=== PATIENT | male | born 1935 | race Caucasian/White ===

== ENCOUNTER → 2024-03-04 | Outpatient (CLI) | payer MEDICARE, OTHER, SELFPAY ==
[2024-03-05 08:56] LABS: Clostridium Difficile PCR Negative (Negative)
== END | disposition home or self-care (01) ==
PROVIDERS: PCP Internal Medicine; Referring Provider Internal Medicine; Visit Provider Internal Medicine
DX: Z01.89 Encounter for other specified special examinations (principal)
CPT/HCPCS: 87493

== ENCOUNTER → 2024-03-14 | Outpatient (CLI) | payer MEDICARE, BC, SELFPAY ==
[2024-03-15 08:41] LABS: Clostridium Difficile PCR Negative (Negative)
== END | disposition home or self-care (01) ==
PROVIDERS: PCP Internal Medicine; Referring Provider Hospitalist; Visit Provider Hospitalist
DX: K59.1 Functional diarrhea (principal)
CPT/HCPCS: 87015; 87045; 87046; 87177; 87209; 87493; 87899

== ENCOUNTER 2024-05-09 17:42 | Inpatient (IN) | payer MEDICARE, BC, SELFPAY ==
[2024-05-09] VITALS (7 sets, daily range): BP systolic 100–128; BP diastolic 52–71; PULSE 93–122; RESP 14–98; TEMP 36.4–39.2; O2SAT 97–100; BMI 23.3
--- NOTE | 2024-05-09 17:53 | EKG_ITS ---
[facility] Test Date: 2024-05-09 Pat Name: CHAITANYA HERNANDEZ Department: Room: - Gender: Male Contract Agent: : [id number] Requested By: Felipe Clemens Order Number: [id number] Reading MD: Felipe Clemens Measurements Intervals [place] Rate: 121 P: 46 PA: 233 QRS: 270 QRSD: 157 T: 51 QT: 360 QTc: 513 Interpretive Statements SINUS TACHYCARDIA WITH FIRST DEGREE AV BLOCK RIGHT AXIS DEVIATION [QRS AXIS > 100] RIGHT BUNDLE BRANCH BLOCK [120+ ms QRS DURATION, UPRIGHT V1, 40+ ms S IN I/aVL/V4/V5/V6] Compared to ECG 01/05/2024 07:41:49 First degree AV block now present Right-axis deviation now present Atrial fibrillation no longer present Ventricular premature complex(es) no longer present Aberrant conduction of supraventricular beat(s) no longer present Left-axis deviation no longer present /store/S0/[id number]/ecg/[id number].pdf
--- NOTE | 2024-05-09 17:54 | XR_ITS ---
Examination: AP chest single view Technique: AP portable upright chest single view Exam date and time: May 09, 2024 1820 hrs. Comparison January 04, 2024 Indications: Coughing today shortness of breath Findings: Normal heart size Mild to moderate vascular congestion. No lobar pneumonia Moderate osteopenia Impression: Mild to moderate vascular congestion
[2024-05-09] MEDS: IBUPROFEN TAB 400 MG TABLET PO (18:24)
[2024-05-09] MEDS: SODIUM CHLORIDE 0.9% 1000 ML 1,000 ML 999 ML IV (18:26)
[2024-05-09 18:28] LABS: Lactate (Lactic Acid) 5.5 mMol/L (0.4-2.0)
[2024-05-09] MEDS: ACETAMINOPHEN IVPB 1,000 MG/100 ML VIAL 250 MG IV (18:30)
[2024-05-09] MEDS: cefTRIAXone 2 GM in SODIUM CHLORIDE 0.9% (Popper) 50 ML IV (18:32)
--- NOTE | 2024-05-09 18:48 | PD.EDADULT ---
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 He reports symptoms started acutely today morning. He was feeling chills and feverish but did not check his temperature. He denies any chest pain, shortness of breath, abdominal or back pain. Related Data Home Medications ?Medication ?Instructions ?Recorded ?Confirmed Docosahexanoic Acid/Epa (Fish Oil 1,400 mg PO DAILY ##0 05/14/13 01/04/24 1,000 Mg Softgel) flaxseed oil 1,030 mg capsule 1,400 mg PO BID #0 caps 05/14/13 01/04/24 levothyroxine 175 mcg tablet 225 mcg PO QDAY #0 tabs 05/14/13 01/08/24 (Synthroid) omeprazole 20 mg capsule,delayed 20 mg PO QDAY ##0 05/14/13 01/04/24 release (Prilosec) Glucosamine/MSM/Chondroitin A * 1 tab PO QDAY #0 tabs 11/13/13 01/04/24 (TRIPLEFLEX *) celecoxib 200 mg capsule 200 mg PO QDAY 01/04/24 01/04/24 Held on 01/09/24. Instructions: Resume on 01/16/24. Please see your PCP within 1 week, after repeating your CMP labs. fluticasone furoate 50 mcg inhalation 01/04/24 mcg/actuation blister powder for inhalation metformin 1,000 mg tablet 1,500 mg PO QDAY 01/04/24 01/08/24 tamsulosin 0.4 mg capsule mg PO BID 01/04/24 acetaminophen 325 mg tablet 650 mg PO Q4H PRN Pain 01/08/24 01/08/24 (Tylenol) Previous Rx's ?Medication ?Instructions ?Recorded albuterol 90 mcg-budesonide 80 2 inh inhalation BID PRN shortness 01/09/24 mcg/actuation HFA aerosol inhaler of breath #10.7 grams amoxicillin 875 mg-potassium 1 tab PO BID #4 tabs 01/09/24 clavulanate 125 mg tablet Allergies Allergy/AdvReac Type Severity Reaction Status Date / Time bacitracin (From Neosporin Allergy Mild Redness of Verified 05/09/24 18:33 ([id number])) Skin neomycin (From Neosporin Allergy Mild Redness of Verified 05/09/24 18:33 ([id number])) Skin polymyxin B (From Neosporin Allergy Mild Redness of Verified 05/09/24 18:33 ([id number])) Skin Review of Systems Review of Systems Systems Reviewed: All systems reviewed, normal except as documented ED Exam Narrative Physical exam: Gen: Well-developed and well-nourished elderly male. HEENT: NCAT, PERRLA, EOMI, MMM, anicteric conjunctivae. CVS: normal S1 and S2. RRR. No M/R/G. Resp: CTA B/L. No rhonchi, rales, crackles or wheezing. Abd: soft, non-tender, non-distended. BS+ in all 4 quadrants. MSK: Good ROM in BUE & BLE. No edema or rash. : No CVA tenderness. Neuro: CN II-XII grossly intact. Strength 5/5 in BUE & BLE. Alert and oriented x3. Psych: appropriate mood and affect. Course Course Course Narrative: 1740 SEPSIS alert called on arrival. 1800 Given 1L of NS and 2g of ceftriaxone. Given tylenol 1g IV for fever. 1930 decision to admit. Quality Measures none Orders Category Date Time Status Bedside COVID-19 Antigen Test NOW Care 05/09/24 18:14 Active Bedside COVID-19 Antigen Test NOW Care 05/09/24 19:43 Active Bedside Influenza A&B Antigen Test NOW Care 05/09/24 18:15 Active COVID-19 Screening Questionnaire NOW Care 05/09/24 19:20 Active Decision to Admit X1 Care 05/09/24 19:20 Completed EKG (ED ONLY) *Do not use* NOW Care 05/09/24 17:53 Completed In and Out Catheter X1 Care 05/09/24 17:57 Completed Insert IV NOW Care 05/09/24 17:52 Active EKG (ED Only) Stat Exams 05/09/24 17:53 Ordered XR chest 1V portable Stat Exams 05/09/24 17:54 Completed Blood Culture (Lab) Stat Lab 05/09/24 17:55 Received CBC Stat Lab 05/09/24 18:00 Completed CMP [Comprehensive Metabolic Panel] Stat Lab 05/09/24 18:00 Completed Lactate (Lactic Acid) Stat Lab 05/09/24 18:00 Results Magnesium Stat Lab 05/09/24 18:00 Completed Procalcitonin Stat Lab 05/09/24 18:00 Completed Troponin I Stat Lab 05/09/24 18:00 Completed Urinalysis Stat Lab 05/09/24 17:55 Completed Urine Culture Stat Lab 05/09/24 17:55 Received Acetaminophen Ivpb [Ofirmev Inj] Med 05/09/24 18:13 Active 1,000 mg in 100 ml IV Q6HR Acetaminophen Tab [Tylenol ES Tab] Med 05/09/24 18:07 Discontinued 500 mg PO X1 ONE Ibuprofen Tab [Motrin Tab] Med 05/09/24 18:13 Discontinued 400 mg PO X1 ONE Sodium Chloride 0.9% 1000 ml [Ns] 1,000 ml Med 05/09/24 18:07 Discontinued IV 999 mls/hr cefTRIAXone [Rocephin] 2 gm Med 05/09/24 18:06 Discontinued SODIUM CHLORIDE 0.9% (Popper) [Ns 0.9% (P)] 50 ml IV X1 Vital Signs Vital signs: Vital Signs Temperature 102.5 F H 05/09/24 18:04 Pulse Rate 122 H 05/09/24 18:04 Respiratory Rate 26 H 05/09/24 18:04 Blood Pressure 128/71 05/09/24 18:04 Pulse Oximetry (%) 97 05/09/24 18:04 Oxygen Delivery Method Room Air 05/09/24 18:04 Procedures -ED EKG Interpretation Sinus tachycardia with 1 degree AVB: Date of EK05/09/24 Time of EK:54 Rate: 121 Interpretation: Reviewed by me EKG Impression: Bundle branch block, No ischemic changes and Sinus tachycardia MDM Patient data External records reviewed:: [facility] previous records and EMS form Clinical information provided by:: patient Social determinants that could affect healthcare access:: none Patient has the following chronic illnesses:: 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 How is presenting disease/condition affected by chronic disease/condition?: uneffected by Evaluation data The following diagnostics were reviewed and interpreted by me:: lab results, radiology exam(s) and EKG tracing(s) Lab and/or radiology exams considered but not ordered:: CTAP Interpretation Summary: Consistent with sepsis 2/2 UTI Medications Medications considered but not ordered:: none Medication administrations:: Medication Administration History Acetaminophen (Ofirmev Inj) 1,000 mg in 100 mls @ 250 mls/hr IV Q6HR TANGELA Stop: 05/10/24 12:23 Last Infusion: 05/09/24 18:58 Dose: Infused Documented By: Admin: 05/09/24 18:30 Dose: 250 mls/hr Documented By: BEV Discontinued Medications Acetaminophen (Acetaminophen 500 Mg Tablet) 500 mg PO X1 ONE Stop: 05/09/24 18:08 Last Admin: 05/09/24 18:33 Dose: Not Given Documented By: BEV Non-Admin Reason: Cancelled by Provider Ceftriaxone Sodium 2 gm/ (Sodium Chloride) 50 mls @ 100 mls/hr IV X1 ONE Stop: 05/09/24 18:35 Last Admin: 05/09/24 18:32 Dose: 100 mls/hr Documented By: BEV Sodium Chloride (Ns) 1,000 mls @ 999 mls/hr IV .Q1H1M ONE Stop: 05/09/24 19:07 Last Admin: 05/09/24 18:26 Dose: 999 mls/hr Documented By: BEV Ibuprofen (Ibuprofen Tab 400 Mg Tablet) 400 mg PO X1 ONE Stop: 05/09/24 18:14 Last Admin: 05/09/24 18:24 Dose: 400 mg Documented By: BEV Given NS 1L, ceftriaxone 2g, Tylenol 1g IV. Consultations Consultation(s) initiated? (list below): No Diagnosis Differential Diagnosis ED Complaint MDM: acute urinary retention, UTI, pyelonephritis Most likely diagnosis given after review of the tests above:: Sepsis 2/2 UTI. Admission Indicated Admission indicated?: indicated Explain why admission is indicated or not indicated:: Patient is septic on admission and requires to be on IVF and IV antibiotics. Admission Request Was there a request for admission?: Yes Admission Attestation Admission request attestation: Discussed case with Dr. Ndiaye from Hospitalist service regarding admission. Discussed patients ED course, exam findings, labs, and radiology results. The Hospitalist agrees to accept the patient for admission. Disposition Plan Disposition Plan: Admit Medical Decision Making MDM Narrative MDM Narrative: Patient presented with signs of sepsis: Tachycardia, tachypnea, fever, leukocytosis. Blood pressure on admission 128/71. Chest x-ray was negative for findings. Patient was complaining of dysuria symptoms and his urinalysis was positive for UTI. Patient will need to be admitted to the hospital for IV antibiotics and IV fluid resuscitation. Cultures were taken in the ED. Differential Diagnosis Differential Diagnosis: acute urinary retention, UTI, pyelonephritis Lab Data 05/09/24 18:00 05/09/24 18:00 Labs: Lab Results 05/09/24 05/09/24 Range/Units 17:55 18:00 WBC 22.5 H (3.8-10.6) Thou/mm3 RBC 2.94 L (4.50-5.90) Miln/mm3 Hgb 8.7 L (13.5-16.0) g/dL Hct 25.6 L (41.0-53.0) % MCV 87 (80-100) fL MCH 29.6 (25.0-35.0) pg MCHC 34.0 (31.0-37.0) g/dl RDW Std Deviation 50.0 H (35.1-43.9) fL Plt Count 272 (140-440) Thou/mm3 Neut % (Auto) 89 H (37-80) % Lymph % (Auto) 5 L (10-50) % Riley % (Auto) 5 (0-12) % Eos % (Auto) 0 (0-10) % Baso % (Auto) 0 (0-2.5) % Neut # (Auto) 20.1 H (1.8-7.7) Thou/mm3 Lymph # (Auto) 1.1 (1.0-4.8) Thou/mm3 Riley # (Auto) 1.1 H (0.0-0.8) Thou/mm3 Eos # (Auto) 0.0 (0.0-0.5) Thou/mm3 Baso # (Auto) 0.0 (0.0-0.2) Thou/mm3 Immature Gran # (Auto) 0.21 H (0.00-0.00) Thou/mm3 Absolute Nucleated RBC 0.00 (0.00-0.00) Thou/mm3 Immature Gran % 1 H (0-0) % Nucleated RBC % 0 (0) /100 WBC Sodium 131 L (136-145) mMol/L Potassium 6.0 H (3.4-5.1) mMol/L Chloride 99 (98-107) mMol/L Carbon Dioxide 17.1 L (20.0-31.0) mMol/L Anion Gap 15 (7-16) BUN 69 H (9-23) mg/dL Creatinine 2.6 H (0.6-1.3) mg/dL Estim Creat Clear Calc 22.0 L (>60) mL/min eGFR 23 L (60 - ) See Note BUN/Creatinine Ratio 27 H (12-20) Ratio Glucose 248 H (74-106) mg/dL Calculated Osmolality 290 (275-295) Lactic Acid 5.5 H* (0.4-2.0) mMol/L Calcium 8.5 (8.3-10.6) mg/dL Corrected Calcium 9.0 (8.5-10.1) mg/dL Magnesium 1.7 (1.6-2.6) mg/dL Total Bilirubin 0.7 (0.3-1.2) mg/dL AST < 10 (0-34) U/L ALT 20 (10-49) U/L Alkaline Phosphatase 132 H (46-116) U/L Troponin I 0.088 H* (0.0-0.045) ng/mL Total Protein 6.1 (5.7-8.2) gm/dL Albumin 3.4 (3.4-4.8) gm/dL Globulin 2.7 (2.3-3.5) gm/dL Albumin/Globulin Ratio 1.3 (1.2-2.2) Procalcitonin 34.55 H (0.0-0.49) ng/ml Ur Collection Type Clean Catch Urine Color Lt-Yellow (Lt Yel-Yel) Urine Clarity Clear (Clear/Hazy) Urine pH 5.5 (5.0-7.0) Ur Specific [place] 1.008 (1.001-1.035) Urine Protein Trace (Neg - Trace) Urine Glucose (UA) Negative (Negative) Urine Ketones Negative (Negative) Urine Blood 1+ A (Negative) Urine Nitrite Positive (Negative) Urine Bilirubin Negative (Negative) Urine Urobilinogen (Auto) Negative (0.0-1.0) mg/dL Ur Leukocyte Esterase Positive (Negative) Urine RBC 2 (0-3) /hpf Urine WBC 45 H (0-5) /hpf Ur Squamous Epith Cells 1 (0-5) /hpf Urine Bacteria 3+ A (None) Hyaline Casts < 1 (0-1) /hpf Discharge Plan Plan Patient Disposition: Admit Acute Care w/in Hospital Prescriptions/Referrals Prescriptions/Med Rec: No Action levothyroxine [Synthroid] 175 MCG tablet 225 mcg PO QDAY Qty: 0 omeprazole [Prilosec] 20 MG capsule,delayed release(DR/EC) 20 mg PO QDAY Qty: 0 Patient Comments: TO SUPPRESS GASTRIC ACID SECRETIONS flaxseed oil 1,030 MG capsule 1,400 mg PO BID Qty: 0 Docosahexanoic Acid/Epa (Fish Oil 1,000 Mg Softgel) 1 CAP capsule 1,400 mg PO DAILY Qty: 0 Glucosamine/MSM/Chondroitin A * (TRIPLEFLEX *) 1 EACH tablet 1 tab PO QDAY Qty: 0 celecoxib 200 mg Capsule 200 mg PO QDAY tamsulosin 0.4 mg Capsule PO BID metformin 1,000 mg Tablet 1,500 mg PO QDAY fluticasone furoate 50 mcg/actuation Blister With Device INHALATION acetaminophen [Tylenol] 325 mg Tablet 650 mg PO Q4H PRN (Reason: Pain) amoxicillin-pot clavulanate 875-125 mg tablet 1 tab PO BID Qty: 4 0RF albuterol-budesonide 90-80 mcg/actuation HFA aerosol inhaler 2 inh inhalation BID PRN (Reason: shortness of breath) Qty: 10.7 0RF Referrals: No Primary/Family,Physician [Primary Care Provider] - In 1 week Problem List Clinical Impression: Sepsis, Acute UTI Patient/Caregiver Discharge Instructions Print Language: Kyrgyz Stand Alone Forms: [facility] Award Info., Patient Portal Info Letter
[2024-05-09 18:57] LABS: Bacteria,Urine 3+; Bilirubin,Urine Negative (Negative); Blood,Urine 1+ (Negative); Clarity,Urine Clear (Clear/Hazy); Collection Type, Urine Clean Catch; Color,Urine Lt-Yellow (Lt Yel-Yel); Glucose, Urine Negative (Negative); Hyaline Casts,Urine < 1 /hpf (0-1); Ketones,Urine Negative (Negative); Leukocyte Esterase,Urine Positive (Negative); Nitrite,Urine Positive (Negative); PH,Urine 5.5 (5.0-7.0); Protein,Urine Trace (Neg - Trace); RBC,Urine 2 /hpf (0-3); Specific Gravity,Urine 1.008 (1.001-1.035); Squamous Epithelial Cell,Urine 1 /hpf (0-5); Urobilinogen,Urine Negative mg/dL (0.0-1.0); WBC,Urine 45 /hpf (0-5)
[2024-05-09 19:03] LABS: Alanine Aminotransferase 20 U/L (10-49); Albumin, Serum 3.4 gm/dL (3.4-4.8); Albumin/Globulin Ratio 1.3 (1.2-2.2); Alkaline Phosphatase 132 U/L (46-116); Anion Gap 15 (7-16); Aspartate Amino Transferase < 10 U/L (0-34); BUN/Creatinine Ratio 27 Ratio (12-20); Bilirubin,Total 0.7 mg/dL (0.3-1.2); Blood Urea Nitrogen 69 mg/dL (9-23); Calcium 8.5 mg/dL (8.3-10.6); Carbon Dioxide 17.1 mMol/L (20.0-31.0); Chloride 99 mMol/L (98-107); Creatinine (Component) 2.6 mg/dL (0.6-1.3); Globulin 2.7 gm/dL (2.3-3.5); Glucose 248 mg/dL (74-106); Magnesium 1.7 mg/dL (1.6-2.6); Osmolality,Calculated 290 (275-295); Procalcitonin 34.55 ng/ml (0.0-0.49); Sodium 131 mMol/L (136-145); Total Protein 6.1 gm/dL (5.7-8.2); eGFR 23 See Note
[2024-05-09 19:09] LABS: Troponin I 0.088 ng/mL (0.0-0.045)
[2024-05-09 19:10] LABS: Basophils % (Auto) 0 % (0-2.5); Eosinophils % (Auto) 0 % (0-10); Hematocrit 25.6 % (41.0-53.0); Immature Granulocytes % (Auto) 1 % (0-0); Immature Granulocytes Auto 0.21 Thou/mm3 (0.00-0.00); Lymphocytes # (Auto) 1.1 Thou/mm3 (1.0-4.8); Lymphocytes % (Auto) 5 % (10-50); Mean Corpuscular Hemoglobin 29.6 pg (25.0-35.0); Mean Corpuscular Volume 87 fL (80-100); Monocytes # (Auto) 1.1 Thou/mm3 (0.0-0.8); Monocytes % (Auto) 5 % (0-12); Neutrophils # (Auto) 20.1 Thou/mm3 (1.8-7.7); Neutrophils % (Auto) 89 % (37-80); Nucleated Red Blood Cell % 0 /100 WBC (0); Platelet Count 272 Thou/mm3 (140-440); Red Blood Count 2.94 Miln/mm3 (4.50-5.90); White Blood Count 22.5 Thou/mm3 (3.8-10.6)
[2024-05-09 19:18] LABS: Hemoglobin 8.7 g/dL (13.5-16.0)
--- NOTE | 2024-05-09 20:26 | XR_ITS ---
Examination: Abdomen sonogram, complete Date and time of exam: May 09, 2024 2113 hrs. Indications: Diagnosis urinary tract infection burning sensation with urination, diagnosis melanoma post chemotherapy, diagnosis sepsis. Technique: Multiple real-time grayscale transabdominal sonographic images of the abdomen have been obtained. Findings: Negative for gallstones Gallbladder wall 0.2 cm Common bile duct 0.3 cm Pancreatic head 2.6 cm Patent distal aorta not enlarged Liver 17.3 cm fatty infiltration Normal hepatopedal portal venous flow Patent IVC Right kidney 13.6 cm renal cortex 2.1 cm Mild hydronephrosis Lower pole 15 mm cyst Left kidney 12.4 cm cortex 1.4 cm Mild hydronephrosis with perinephric stranding Moderate bilateral renal parenchymal scar formation Splenomegaly 13.4 cm Impression: Negative for cholelithiasis, negative for cholecystitis Mild hepatomegaly fatty liver Mild bilateral hydronephrosis Moderate bilateral renal parenchymal scar formation Edema surrounding the left kidney, consider left urinary tract infection Mild splenomegaly
--- NOTE | 2024-05-09 20:48 | PD.RESHP ---
Documentation for date of: 05/09/24 HPI History of Present Illness Chief complaint: Generalized weakness for 2 days before History of present illness: HPI:An 89-year-old male patient with past medical history of hypertension, BPH, HFpEF, melanoma, hypothyroidism, A-fib with RVR, urinary incontinence due to acute illness, diabetes mellitus type 2 was brought to the ED by his daughter after she noticed that the patient was weak and confused. Yesterday the patient felt weak and was not able to get up of the recliner without assistant account manager. Patient lives alone andhe has a caregiver who noticed the patient seems to be confused for that reason she called her that his daughter Tali. When his daughter came to to see him the next day patient was mildly confused and was having excessive chills and sweating however denied any fever. She also noticed that the patient has had some episodes of vomiting which was food content. She contacted his [facility] care provider who prescribed the patient Bactrim as he suspected that the patient might have UTI as the patient has history of urinary incontinence and has been using diapers. However, patient condition continued to worsen for that reason she brought him to the ED. On questioning, patient appears to be mildly confused however he is oriented x 3 with difficulty. On review of other system the daughter reported that she noticed that he has black tarry stool which was soft, however, she mentioned that he has been on iron pills for his anemia. Patient denied any abdominal pain, any yellowish discoloration, and denied any use of excessive ibuprofen. Home medications: Apixaban 2.5, carvedilol 3.125, famotidine, levothyroxine 200, metformin 500, prednisone 10 mg, tamsulosin, valsartan, iron supplements, fish oil, flaxseed oil Advair, albuterol/budesonide, ipratropium/albuterol, Tylenol ED course: At the ED patient was noticed to have body temperature of 102.5, pulse rate of 122, respiratory rate of 26. He is saturating well on room air . CBC showed WBC of 22.5, hemoglobin of 8.7 in January last year his hemoglobin was 10.5, platelets 272, sodium 131, potassium 6.0, CO2 17.1, anion gap of 15, BUN of 69, serum creatinine 2.6 his baseline serum creatinine is 1.6, glucose of 248, lactic acid 5.5, AST and ALT within normal limits, troponin 0.088, procalcitonin 34.55 urinalysis was positive for WBCs 45 on high-power field, positive bacteria 3. Chest x-ray was only significant for mild congestion. Patient was given a liter of fluids in the ED due to the concern of his HFpEF and was given 1 dose of Rocephin in addition to his Tylenol PMH:As above PSX: Total knee replacement surgery Social hx: Alcohol: Drink half a bottle of wine daily Tobacco: Denied Illicit drugs: Denied Allergies: Bacitracin, neomycin, polymyxin B Review of Systems Review of Systems Systems Reviewed: All systems reviewed, normal except as documented Exam Vital Signs Temp Pulse Resp BP Pulse Ox O2 Del Method 97.8 F 93 18 100/52 L 98 Room Air 05/09/24 20:35 05/09/24 20:35 05/09/24 20:35 05/09/24 20:35 05/09/24 20:35 05/09/24 20:35 Narrative Exam GEN: AOx3, able to speak full sentences HEENT: NC/AC, oral mucosa dry, neck supple CVS: RRR, S1-S2 present, no murmurs appreciated RESP: CTAB GI: soft, non distended, mild discomfort on the right loin area, CVA nontender, no rigidity or rebound tenderness, NBS MSK: able to move all 4 limbs, no lower extremity edema SKIN: warm and dry, delayed skin turgor more than 3-second BATCHER OPERATOR: CN II-XII and Sensation grossly intact. Results: Labs 05/10/24 04:35 05/09/24 21:46 Labs: Short CBC 05/09/24 Range/Units 18:00 WBC 22.5 H (3.8-10.6) Thou/mm3 Hgb 8.7 L (13.5-16.0) g/dL Hct 25.6 L (41.0-53.0) % Plt Count 272 (140-440) Thou/mm3 BMP 05/09/24 18:00 Sodium 131 L Potassium 6.0 H Chloride 99 Carbon Dioxide 17.1 L BUN 69 H Creatinine 2.6 H Glucose 248 H Calcium 8.5 Cardiac Enzymes 05/09/24 Range/Units 18:00 Troponin I 0.088 H* (0.0-0.045) ng/mL Liver Function 05/09/24 Range/Units 18:00 Total Bilirubin 0.7 (0.3-1.2) mg/dL AST < 10 (0-34) U/L ALT 20 (10-49) U/L Alkaline Phosphatase 132 H (46-116) U/L Albumin 3.4 (3.4-4.8) gm/dL Urine 05/09/24 Range/Units 17:55 Urine Color Lt-Yellow (Lt Yel-Yel) Urine Clarity Clear (Clear/Hazy) Urine pH 5.5 (5.0-7.0) Ur Specific Proctor 1.008 (1.001-1.035) Urine Protein Trace (Neg - Trace) Urine Glucose (UA) Negative (Negative) Quality Measures Quality Measures none Advance care planning discussed with:: patient and child Medications Home Medications and Allergies Home Medications ?Medication ?Instructions ?Recorded ?Confirmed ?Type Docosahexanoic Acid/Epa (Fish Oil 1,400 mg PO DAILY ##0 05/14/13 01/04/24 History 1,000 Mg Softgel) flaxseed oil 1,030 mg capsule 1,400 mg PO BID #0 caps 05/14/13 01/04/24 History levothyroxine 175 mcg tablet 225 mcg PO QDAY #0 tabs 05/14/13 01/08/24 History (Synthroid) omeprazole 20 mg capsule,delayed 20 mg PO QDAY ##0 05/14/13 01/04/24 History release (Prilosec) Glucosamine/MSM/Chondroitin A * 1 tab PO QDAY #0 tabs 11/13/13 01/04/24 History (TRIPLEFLEX *) celecoxib 200 mg capsule 200 mg PO QDAY 01/04/24 01/04/24 History Held on 01/09/24. Instructions: Resume on 01/16/24. Please see your PCP within 1 week, after repeating your CMP labs. fluticasone furoate 50 mcg inhalation 01/04/24 History mcg/actuation blister powder for inhalation metformin 1,000 mg tablet 1,500 mg PO QDAY 01/04/24 01/08/24 History tamsulosin 0.4 mg capsule mg PO BID 01/04/24 History acetaminophen 325 mg tablet 650 mg PO Q4H PRN Pain 01/08/24 01/08/24 History (Tylenol) Allergies Allergy/AdvReac Type Severity Reaction Status Date / Time bacitracin (From Neosporin Allergy Mild Redness of Verified 05/09/24 18:33 ([id number])) Skin neomycin (From Neosporin Allergy Mild Redness of Verified 05/09/24 18:33 ([id number])) Skin polymyxin B (From Neosporin Allergy Mild Redness of Verified 05/09/24 18:33 ([id number])) Skin Visit Medications Acetaminophen (Acetaminophen 325 Mg Tablet) 650 mg PO Q6H PRN PRN Reason: Fever >101.5 Stop: 06/08/24 20:32 Acetaminophen (Acetaminophen 325 Mg Tablet) 650 mg PO Q6H PRN PRN Reason: PAIN SCALE 1-3 (mild Stop: 06/08/24 20:32 Dextrose (Dextrose 50%-Water Inj 50 Ml Syringe) 25 ml IV Q15MIN PRN PRN Reason: BG 50-70 responsive npo pt Stop: 06/08/24 20:25 Dextrose (Dextrose 50%-Water Inj 50 Ml Syringe) 50 ml IV Q15MIN PRN PRN Reason: BG <50 OR BG <70 & pt unresponsive Stop: 06/08/24 20:25 Glucagon (Glucagon Inj 1 Mg Vial) 1 mg IM Q15MIN PRN PRN Reason: BG <70, and no IV access Acetaminophen (Ofirmev Inj) 1,000 mg in 100 mls @ 250 mls/hr IV Q6HR TANGELA Stop: 05/10/24 12:23 Last Infusion: 05/09/24 18:58 Dose: Infused Ceftriaxone Sodium 1,000 mg/ (Sodium Chloride) 50 mls @ 100 mls/hr IV QDAY TANGELA Stop: 05/17/24 06:59 Calcium Gluconate/Sodium Chloride (Calcium Gluc/Ns 1000mg Ivpb) 1,000 mg in 50 mls @ 50 mls/hr IV X1 ONE Stop: 05/09/24 21:42 Ondansetron HCl (Ondansetron Inj 2 Mg/Ml Inj 2 Ml) 4 mg IV Q6H PRN; Protocol PRN Reason: NAUSEA OR VOMITING Stop: 06/08/24 20:32 Pantoprazole Sodium (Pantoprazole Inj 40 Mg Vial) 40 mg IVP QDAY TANGELA Stop: 06/09/24 08:59 Discontinued Medications Acetaminophen (Acetaminophen 500 Mg Tablet) 500 mg PO X1 ONE Stop: 05/09/24 18:08 Last Admin: 05/09/24 18:33 Dose: Not Given Calcium Chloride (Calcium Chloride 10% Inj 10 Ml Syrg) 10 ml IV X1 ONE Stop: 05/09/24 20:27 Dextrose (Dextrose 50%-Water Inj 50 Ml Syringe) 50 ml IV X1 ONE Stop: 05/09/24 20:27 Ceftriaxone Sodium 2 gm/ (Sodium Chloride) 50 mls @ 100 mls/hr IV X1 ONE Stop: 05/09/24 18:35 Last Infusion: 05/09/24 19:02 Dose: Infused Sodium Chloride (Ns) 1,000 mls @ 999 mls/hr IV .Q1H1M ONE Stop: 05/09/24 19:07 Last Infusion: 05/09/24 19:27 Dose: Infused Dextrose (D10w 1000 Ml) 1,000 mls @ 100 mls/hr IV .Q10H TANGELA Stop: 05/10/24 06:29 Ibuprofen (Ibuprofen Tab 400 Mg Tablet) 400 mg PO X1 ONE Stop: 05/09/24 18:14 Last Admin: 05/09/24 18:24 Dose: 400 mg Insulin Human Regular (Insulin Hum Regular 1 Unit/0.01 Ml (Per Unit)) 10 unit IV X1 ONE Stop: 05/09/24 20:27 Ondansetron HCl (Ondansetron Inj 2 Mg/Ml Inj 2 Ml) 4 mg IV Q1H PRN PRN Reason: PERSISTENT NAUSEA OR VOMITING Assessment & Plan Plan Summary:An 89-year-old male patient with past medical history of hypertension, BPH, HFpEF, melanoma, hypothyroidism, A-fib with RVR, diabetes mellitus type 2 was brought to the ED by his daughter after she noticed that the patient was weak and confused. Patient was admitted for treatment of severe sepsis secondary to UTI. Assessment and plan #Severe sepsis secondary to UTI #UTI #Lactic acidosis secondary to sepsis #History of BPH At the ED patient was noticed to have body temperature of 102.5, pulse rate of 122, respiratory rate of 26. He is saturating well on room air . CBC showed WBC of 22.5, hemoglobin of 8.7, CO2 17.1, anion gap of 15, BUN of 69, serum creatinine 2.6 his baseline serum creatinine is 1.6, lactic acid 5.5, procalcitonin 34.55 urinalysis was positive for WBCs 45 on high-power field, positive bacteria 3. Patient was given a liter of fluids in the ED due to the concern of his HFpEF and was given 1 dose of Rocephin in addition to his Tylenol On review of the patient's chart we noted that the patient is using tamsulosin for his benign prostatic hyperplasia Plan ? Admit patient to med/tele ? Start the patient on Rocephin 1 g daily ? Trend lactic acid ? Follow-up on the blood culture and urine culture ? Give the patient another bolus of Ringer lactate 1 L ? Repeat BMP panel after 2 hours ? Abdominal ultrasound ? Insert Underwood's catheter ?Resume home medication tamsulosin 0.4 mg p.o. daily #Hyperkalemia Presentation patient was noticed to have potassium level of 6.1 review of his medications does not seem to have any medication that can cause hyperkalemia Plan ? Keep the patient calcium gluconate 9% over 10 minutes ? Insulin IV 10 international unit x 1 ? 50 mL of D50 x 1 with the insulin ? Repeat BMP after 2 hours ? Daily BMP monitoring #History of melena The daughter reported that she noticed that her father has some episodes of black tarry stool. Denied any history of cirrhosis however he has history of chronic daily use of alcohol in which she drink 1 to 2 glasses of wine daily Denied any use of ibuprofen, however the patient is on iron supplements His hemoglobin 8.7 Plan ? Fecal occult blood test ? Daily CBC ? Consider consulting GI specialist if hemoglobin continued to drop ? Follow-up on the abdominal ultrasound results to rule out if there is any cirrhosis #History of type 2 diabetes mellitus Plan ? Put patient on insulin sliding scale ? Sent for A1c level ? Hypoglycemia protocol in place #History of hypothyroidism Plan ? Resume home medication levothyroxine ? Repeat TSH level #History of A-fib with RVR Plan ? Hold on carvedilol at this time as his blood pressure in the soft side ? Will hold on the apixaban at this time until we rule out GI bleed as the patient has black tarry stool #History of HFpEF #History of hypertension Plan ? Will hold on the carvedilol and valsartan at this time because of the low blood pressure ?Will resume his atorvastatin #Recent history of pneumonia Patient was recently discharged from the hospital in January 27 because of acute hypoxic respiratory failure secondary to pneumonia. When the patient was discharged he was prescribed inhaler therapy by his PCP for his shortness of breath Plan ? Put the patient on DuoNebs every 8 hours as needed #History of melanoma on steroid As per the daughter the patient has melanoma in which he received some chemotherapy that resulted on has chronic diarrhea for that reason he was prescribed prednisone to decrease his diarrhea side effect Plan ? 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 He has never had withdrawal symptoms, he was recently admitted to the hospital for pneumonia and did not experience any withdrawal symptoms. Patient was discharged to assisted facility and he was off alcohol for more than a month. Plan ? Keep close monitoring, consider putting the patient on CIWA protocol if needed Hospital Maintenance: FEN: Renal diet with carb consistent DVT ppx: SCD until rule out GI bleed GI ppx: Protonix IV lines: PIV Underwood:Yes Code status: DNR Dispo: Med-tele - Patient's plan and care discussed with my attending, Dr. Moses Lancaster MD Internal Medicine PGY-2 Attending Provider Attestation/Addendum 89 year old male with multiple comorbid conditions including hypertension, BPH, HFpEF, melenoma and hypothyroidism who presented with fatigue and weakness. In the ER, patient was noted to be septic with organ failure including LUIS with subsequent high anion gap metabolic acidosis and high anion gap metabolic acidosis. In addition, patient noted to have anemia with melena however patient does take iron supplements. For now, will start IV fluids, rocephin and treat hyperkalemia. I reviewed above note and agree with findings and plans. I have also personally examined the patient with medicine team and went over assessment and plan with medical team including diversity intern and resident physician.
[2024-05-09] MEDS: CALCIUM GLUC/NS 1000MG IVPB 1,000 MG/50 ML BAG 300 MG IV (21:17)
[2024-05-09] MEDS: DEXTROSE 50%-WATER INJ 50 ML SYRINGE IV (21:18)
[2024-05-09] MEDS: INSULIN HUM REGULAR 1 UNIT/0.01 ML (PER UNIT) 10 UNIT IV (21:18)
[2024-05-09 21:23] LABS: Reflex Lactate? Y
[2024-05-09 21:56] LABS: Lactate (Lactic Acid) 3.2 mMol/L (0.4-2.0)
[2024-05-09 22:20] LABS: Anion Gap 12 (7-16); BUN/Creatinine Ratio 26 Ratio (12-20); Blood Urea Nitrogen 65 mg/dL (9-23); Calcium 8.7 mg/dL (8.3-10.6); Carbon Dioxide 17.6 mMol/L (20.0-31.0); Chloride 103 mMol/L (98-107); Creatinine (Component) 2.5 mg/dL (0.6-1.3); Estimated Creatinine Clearance 22.8 mL/min (>60); Glucose 254 mg/dL (74-106); Osmolality,Calculated 294 (275-295); Potassium 4.7 mMol/L (3.4-5.1); Sodium 133 mMol/L (136-145); Troponin I 0.083 ng/mL (0.0-0.045); eGFR 24 See Note
--- NOTE | 2024-05-09 22:25 | PC.NURSE ---
jaylin galaviz [phone]
[2024-05-09 23:07] LABS: Glucose Estimated Average 137 mg/dL (80-131); Hemoglobin A1C 6.4 % Hgb (4.8-6.0)
[2024-05-10] VITALS (12 sets, daily range): BP systolic 104–135; BP diastolic 48–69; PULSE 67–102; RESP 12–97; TEMP 35–37.4; O2SAT 95–100; BMI 13.0
[2024-05-10] MEDS: ACETAMINOPHEN IVPB 1,000 MG/100 ML VIAL 250 MG IV (00:46)
[2024-05-10 00:52] LABS: Reflex Lactate? Y
[2024-05-10] MEDS: SODIUM CHLORIDE 0.9% 500 ML 500 ML 999 ML IV ×2 (04:16→07:59)
[2024-05-10 04:57] LABS: Basophils % (Auto) 0 % (0-2.5); Eosinophils % (Auto) 0 % (0-10); Immature Granulocytes % (Auto) 2 % (0-0); Lymphocytes # (Auto) 0.7 Thou/mm3 (1.0-4.8); Lymphocytes % (Auto) 5 % (10-50); Mean Corpuscular HGB Conc 34.8 g/dl (31.0-37.0); Mean Corpuscular Hemoglobin 29.8 pg (25.0-35.0); Mean Corpuscular Volume 86 fL (80-100); Monocytes # (Auto) 0.7 Thou/mm3 (0.0-0.8); Monocytes % (Auto) 5 % (0-12); Neutrophils # (Auto) 11.5 Thou/mm3 (1.8-7.7); Neutrophils % (Auto) 88 % (37-80); Nucleated Red Blood Cell % 0 /100 WBC (0); Platelet Count 155 Thou/mm3 (140-440); RDW Standard Deviation 49.6 fL (35.1-43.9); Red Blood Count 2.18 Miln/mm3 (4.50-5.90); White Blood Count 13.2 Thou/mm3 (3.8-10.6)
[2024-05-10 05:12] LABS: Hematocrit 18.7 % (41.0-53.0); Hemoglobin 6.5 g/dL (13.5-16.0)
[2024-05-10 05:18] LABS: INR 1.3 (0.9-1.3); Partial Thromboplastin Time 41.7 Seconds (22.0-36.0); Prothrombin Time 13.9 Seconds (9.0-12.2)
[2024-05-10 06:04] LABS: Alanine Aminotransferase 13 U/L (10-49); Albumin, Serum 2.6 gm/dL (3.4-4.8); Albumin/Globulin Ratio 1.1 (1.2-2.2); Alkaline Phosphatase 91 U/L (46-116); Anion Gap 9 (7-16); Aspartate Amino Transferase 10 U/L (0-34); BUN/Creatinine Ratio 26 Ratio (12-20); Bilirubin,Total 0.3 mg/dL (0.3-1.2); Blood Urea Nitrogen 67 mg/dL (9-23); Calcium 7.7 mg/dL (8.3-10.6); Calcium (Corrected) 8.8 mg/dL (8.5-10.1); Carbon Dioxide 19.7 mMol/L (20.0-31.0); Chloride 103 mMol/L (98-107); Creatinine (Component) 2.6 mg/dL (0.6-1.3); Globulin 2.3 gm/dL (2.3-3.5); Glucose 154 mg/dL (74-106); Magnesium 1.7 mg/dL (1.6-2.6); Osmolality,Calculated 286 (275-295); Potassium 4.6 mMol/L (3.4-5.1); Sodium 132 mMol/L (136-145); Thyroid Stimulating Hormone 0.03 uIU/mL (0.55-4.78); Total Protein 4.9 gm/dL (5.7-8.2); eGFR 23 See Note
[2024-05-10 07:24] LABS: Hematocrit 20.7 % (41.0-53.0)
[2024-05-10] MEDS: TAMSULOSIN HCL 0.4 MG CAPSULE PO (09:38)
[2024-05-10] MEDS: PANTOPRAZOLE INJ 40 MG VIAL IVP (09:38)
[2024-05-10] MEDS: cefTRIAXone/D5w 2gm 2 GM/50 ML BAG IV (09:39)
[2024-05-10 09:47] LABS: Free T4 (Free Thyroxine) 1.29 ng/dL (0.89-1.76)
[2024-05-10] MEDS: Magnesium Sulfate 4 GM Ivpb 4 GM/50 ML BAG IV (10:52)
[2024-05-10] MEDS: INSULIN LISPRO (AdmeLOG) 1 UNIT/0.01 ML UNIT SC (12:21)
--- NOTE | 2024-05-10 14:04 | ESPR_ITS ---
Documentation for date of: 05/10/24 Subjective Subjective Interval history: 05/10/2024: Overnight admission for 89-year-old male with sepsis secondary to UTI. Patient seen and assessed in hospital bed, awake and answering questions appropriately. Patient is having ongoing chills; however, denies having any concerning cardiac symptoms such as chest pain, shortness of breath or palpitations. Patient's blood cultures are positive from 2 bottles (aerobic/anaerobic) for gram-negative rods; as a result, increase the patient's IV Rocephin to 2 g daily. Patient also has suspicion for upper GI bleed as he has risk factors (prednisone for diarrhea prescribed a month ago) and melena on exam. Consulted gastroenterology for recommendation and the patient and his family is understanding and agreeable to endoscopic intervention if necessary. Exam Vital Signs Temp Pulse Resp BP Pulse Ox O2 Del Method O2 Flow Rate 99.3 F 98 19 116/61 100 Nasal Cannula 1 05/10/24 12:00 05/10/24 12:05/10/24 12:05/10/24 12:00 05/10/24 12:05/10/24 12:05/10/24 12:00 Narrative Exam GEN: Awake, able to speak full sentences HEENT: NC/AC, oral mucosa dry, neck supple CVS: RRR, S1-S2 present, no murmurs appreciated RESP: Crackles heard bilaterally, no wheeze/rales/rhonci, on 2L satting 98+ GI: soft, non distended,nontender, no rigidity or rebound tenderness, borborygmi apparent. MSK: able to move all 4 limbs, no lower extremity edema MATERIAL REQUIREMENTS PLANNING MANAGER: AOx3, CN II-XII and no focal neurological defitits noted. Objective Labs 05/11/24 05:07 05/11/24 05:07 Labs: Laboratory Results - last 24 hr 05/09/24 05/09/24 05/09/24 17:55 18:00 20:52 WBC 22.5 H RBC 2.94 L Hgb 8.7 L Hct 25.6 L MCV 87 MCH 29.6 MCHC 34.0 RDW Std Deviation 50.0 H Plt Count 272 Neut % (Auto) 89 H Lymph % (Auto) 5 L [place] % (Auto) 5 Eos % (Auto) 0 Baso % (Auto) 0 Neut # (Auto) 20.1 H Lymph # (Auto) 1.1 [place] # (Auto) 1.1 H Eos # (Auto) 0.0 Baso # (Auto) 0.0 Immature Gran # (Auto) 0.21 H Absolute Nucleated RBC 0.00 Immature Gran % 1 H Nucleated RBC % 0 PT INR APTT Sodium 131 L Potassium 6.0 H Chloride 99 Carbon Dioxide 17.1 L Anion Gap 15 BUN 69 H Creatinine 2.6 H Estim Creat Clear Calc 22.0 L eGFR 23 L BUN/Creatinine Ratio 27 H Glucose [address] Glu mg/dL 137 H Hemoglobin A1c 6.4 H Calculated Osmolality 290 Lactic Acid 5.5 H* Calcium 8.5 Corrected Calcium 9.0 Phosphorus Magnesium 1.7 Total Bilirubin 0.7 AST < 10 ALT 20 Alkaline Phosphatase 132 H Troponin I 0.088 H* Total Protein 6.1 Albumin 3.4 Globulin 2.7 Albumin/Globulin Ratio 1.3 Procalcitonin 34.55 H TSH Free T4 Ur Collection Type Clean Catch Urine Color Lt-Yellow Urine Clarity Clear Urine pH 5.5 Ur Specific [place] 1.008 Urine Protein Trace Urine Glucose (UA) Negative Urine Ketones Negative Urine Blood 1+ A Urine Nitrite Positive Urine Bilirubin Negative Urine Urobilinogen (Auto) Negative Ur Leukocyte Esterase Positive Urine RBC 2 Urine WBC 45 H Ur Squamous Epith Cells 1 Urine Bacteria 3+ A Hyaline Casts < 1 Blood Type Antibody Screen Blood Bank Wristband ID 05/09/24 05/10/24 05/10/24 21:46 01:21 04:35 WBC 13.2 H D RBC 2.18 L Hgb 6.5 L* D Hct 18.7 L* MCV 86 MCH 29.8 MCHC 34.8 RDW Std Deviation 49.6 H Plt Count 155 D Neut % (Auto) 88 H Lymph % (Auto) 5 L [place] % (Auto) 5 Eos % (Auto) 0 Baso % (Auto) 0 Neut # (Auto) 11.5 H Lymph # (Auto) 0.7 L [place] # (Auto) 0.7 Eos # (Auto) 0.0 Baso # (Auto) 0.0 Immature Gran # (Auto) 0.20 H Absolute Nucleated RBC 0.00 Immature Gran % 2 H Nucleated RBC % 0 PT 13.9 H INR 1.3 APTT 41.7 H Sodium 133 L 132 L Potassium 4.7 D 4.6 Chloride 103 103 Carbon Dioxide 17.6 L 19.7 L Anion Gap 12 9 BUN 65 H 67 H Creatinine 2.5 H 2.6 H Estim Creat Clear Calc 22.8 L 22.0 L eGFR 24 L 23 L BUN/Creatinine Ratio 26 H 26 H Glucose [address] Glu mg/dL Hemoglobin A1c Calculated Osmolality 294 286 Lactic Acid 3.2 H 2.0 Calcium 8.7 7.7 L Corrected Calcium 8.8 Phosphorus 5.0 Magnesium 1.7 Total Bilirubin 0.3 AST 10 ALT 13 Alkaline Phosphatase 91 D Troponin I 0.083 H* Total Protein 4.9 L Albumin 2.6 L D Globulin 2.3 Albumin/Globulin Ratio 1.1 L Procalcitonin TSH 0.03 L* Free T4 1.29 Ur Collection Type Urine Color Urine Clarity Urine pH Ur Specific [place] Urine Protein Urine Glucose (UA) Urine Ketones Urine Blood Urine Nitrite Urine Bilirubin Urine Urobilinogen (Auto) Ur Leukocyte Esterase Urine RBC Urine WBC Ur Squamous Epith Cells Urine Bacteria Hyaline Casts Blood Type A Positive Antibody Screen NEGATIVE Blood Bank Wristband ID Yes 05/10/24 07:05 WBC RBC Hgb 7.0 L Hct 20.7 L* MCV MCH MCHC RDW Std Deviation Plt Count Neut % (Auto) Lymph % (Auto) [place] % (Auto) Eos % (Auto) Baso % (Auto) Neut # (Auto) Lymph # (Auto) [place] # (Auto) Eos # (Auto) Baso # (Auto) Immature Gran # (Auto) Absolute Nucleated RBC Immature Gran % Nucleated RBC % PT INR APTT Sodium Potassium Chloride Carbon Dioxide Anion Gap BUN Creatinine Estim Creat Clear Calc eGFR BUN/Creatinine Ratio Glucose Estimated Ave Glu mg/dL Hemoglobin A1c Calculated Osmolality Lactic Acid Calcium Corrected Calcium Phosphorus Magnesium Total Bilirubin AST ALT Alkaline Phosphatase Troponin I Total Protein Albumin Globulin Albumin/Globulin Ratio Procalcitonin TSH Free T4 Ur Collection Type Urine Color Urine Clarity Urine pH Ur Specific [place] Urine Protein Urine Glucose (UA) Urine Ketones Urine Blood Urine Nitrite Urine Bilirubin Urine Urobilinogen (Auto) Ur Leukocyte Esterase Urine RBC Urine WBC Ur Squamous Epith Cells Urine Bacteria Hyaline Casts Blood Type Antibody Screen Blood Bank Wristband ID Quality Measures Quality Measures none Advance care planning discussed with:: patient Assessment & Plan Assessment Current Active Medications: Generic Name Dose Route Start Last Admin Trade Name Freq PRN Reason Stop Dose Admin Acetaminophen 650 mg 05/09/24 20:33 Acetaminophen 325 Mg Tablet PO 06/08/24 20:32 Q6H PRN Fever >101.5 Acetaminophen 650 mg 05/09/24 20:33 Acetaminophen 325 Mg Tablet PO 06/08/24 20:32 Q6H PRN PAIN SCALE 1-3 (mild Dextrose 25 ml 05/09/24 20:26 Dextrose 50%-Water Inj 50 Ml Syringe IV 06/08/24 20:25 Q15MIN PRN BG 50-70 responsive npo pt Dextrose 50 ml 05/09/24 20:26 Dextrose 50%-Water Inj 50 Ml Syringe IV 06/08/24 20:25 Q15MIN PRN BG <50 OR BG <70 & pt unresponsive Glucagon 1 mg 05/09/24 20:26 Glucagon Inj 1 Mg Vial IM Q15MIN PRN BG <70, and no IV access Ceftriaxone Sodium/Dextrose 2 gm in 50 mls @ 100 mls/hr 05/10/24 09:00 05/10/24 09:39 Rocephin/D5w 2gm IV 05/17/24 08:59 100 mls/hr QDAY TANGELA Administration Insulin Human Lispro 0 unit 05/10/24 07:30 05/10/24 12:21 Insulin Lispro (Admelog) 1 Unit/0.01 Ml Unit SC 06/09/24 07:29 1 unit AC TANGELA Administration Protocol Levothyroxine Sodium 200 mcg 05/11/24 06:00 Levothyroxine Sodium 100 Mcg Tablet PO 06/10/24 05:59 ACBR TANGELA Ondansetron HCl 4 mg 05/09/24 20:33 Ondansetron Inj 2 Mg/Ml Inj 2 Ml IV 06/08/24 20:32 Q6H PRN NAUSEA OR VOMITING Protocol Pantoprazole Sodium 40 mg 05/10/24 21:00 Pantoprazole Inj 40 Mg Vial IVP 06/09/24 20:59 BID TANGELA Tamsulosin HCl 0.4 mg 05/10/24 09:00 05/10/24 09:38 Tamsulosin Hcl 0.4 Mg Capsule PO 06/09/24 08:59 0.4 mg QDAY TANGELA Administration Plan 89-year-old male patient with past medical history of hypertension, BPH, HFpEF, melanoma, hypothyroidism, A-fib with RVR, diabetes mellitus type 2 was brought to the ED by his daughter after she noticed that the patient was weak and confused. Patient was admitted for treatment of severe sepsis secondary to UTI. #Severe sepsis secondary to UTI #Gram-negative bacteremia #Lactic acidosis secondary to sepsis #History of BPH At the ED patient was noticed to have body temperature of 102.5, pulse rate of 122, respiratory rate of 26. He is saturating well on room air . CBC showed WBC of 22.5, hemoglobin of 8.7, CO2 17.1, anion gap of 15, BUN of 69, serum creatinine 2.6 his baseline serum creatinine is 1.6, lactic acid 5.5, procalcitonin 34.55 urinalysis was positive for WBCs 45 on high-power field, positive bacteria 3. Patient was given a liter of fluids in the ED due to the concern of his HFpEF and was given 1 dose of Rocephin in addition to his Tylenol On review of the patient's chart we noted that the patient is using tamsulosin for his benign prostatic hyperplasia Blood culture both bottles grew GNR Abdominal U/S shows: No signs of cholelithiasis, negative for cholecystitis, mild hepatomegaly fatty liver, mild bilateral hydronephrosis, moderate bilateral renal parenchymal scar formation and mild splenomegaly Edema surrounding the left kidney noted. Plan: Increased Rocephin to 2 g daily Urine culture pending Underwood's catheter in Continue home medication tamsulosin 0.4 mg p.o. daily #Suspicion for Upper GI Bleed Patient's daughter reported that she noticed that her father has some episodes of black tarry stool. Denied any history of cirrhosis however he has history of chronic daily use of alcohol in which she drink 1 to 2 glasses of wine daily Denied any use of ibuprofen, however the patient is on iron supplements On prednisone for diarrhea as noted below, increased risk for ulcer development His hemoglobin 8.7 --> 6.5 --> 7.0 Plan: Dr. Do consulted, appreciate recommendations #Non-insulin dependent type 2 diabetes mellitus Patient on metformin, pending offical med rec A1c of 6.4 Plan: SSI #Hypothyroidism Home medication levothyroxine TSH of 0.03 Free T4 of 1.29 Plan: Resume home dose levothyroxine #History of A-fib with RVR CHADVASc score of 4 Pending med rec Plan: Holding apixaban/anticoagulation at this time until we rule out GI bleed as the patient has black tarry stool #History of HFpEF #History of hypertension Last ECHO from 12/27 showed: normal LV size, LV function mildly reduced with an EF of around 40 to 45%. Diastolic dysfunction stage I. Normal RV size and function. Mild TR Moderate MR. Mild aortic valve sclerosis without stenosis trace AI In no acute exacerbation at this time Normotensive Plan: Will hold on the carvedilol and valsartan, and resume when appropriate #History of melanoma on steroid As per the daughter the patient has melanoma in which he received some chemotherapy that resulted on has chronic diarrhea for that reason he was prescribed prednisone to decrease his diarrhea side effect Plan: Resume home medications upon med reconciliation Hospital Management: Diet: Renal diet with carb consistent Lines: PIV, Underwood Bowel: Senna DVT prophylaxis: SCD until rule out GI bleed GI prophylaxis: Protonix Dispo: IV antibiotics for sepsis 2/2 uti and bacteremia and suspcion for GI bleed; consulted GI Code status: DNR Patient seen and assessed with attending Dr. Malin and senior resident Dr. Judi Vences, PGY-1 -- ATTESTATION: I saw and examined the patient this morning, and I agree with current management stated by the resident. Will continue to monitor patient during their stay. Mr. Martin is a 89-year-old male past medical history hypertension, BPH, HFpEF, melanoma on remission, hypothyroidism, A-fib with RVR, type 2 diabetes that was brought to the ED on 05/09/2024 after he was found to be weak and confused. Patient was found to have severe sepsis secondary to UTI for which she was admitted and started on antibiotics. Patient was also found to have acute blood loss anemia as she has been having dark starry stools for several days. Patient is currently n.p.o. and GI was consulted for possible endoscopy. Patient is also currently being treated for diabetes, will holding off on anticoagulation for A-fib due to possible underlying bleed. Urine cultures and blood cultures are pending. Disclaimer: Despite multiple revisions, due to the dictation software being used, the document bellow may not be free of grammatical errors including phonetic/typographic errors. However, this does not deter from our commitment to providing health care in the patient's best interest in mind. Dr. Ulises Lau, PGY-3 Attending Provider Attestation/Addendum I have examined the patient, reviewed labs and imaging findings, discussed the case with the resident(s), and reviewed entered orders. I agree with the plan of care as outlined in this note, with these additional summaries/recommendations: Patient and family seen at bedside. Patient admitted overnight for sepsis secondary to urinary tract infection and bacteremia. Urine culture pending. Blood cultures preliminarily showing gram-negative rods. Continue IV antibiotics. Meets sepsis criteria with evidence of endorgan damage with acute kidney injury. Acute kidney injury most likely secondary to prerenal azotemia in the setting of sepsis. Renally dose medications and avoid nephrotoxic agents. Repeat renal function in AM. Baseline creatinine appears to be approximately 1.6-1.7 and on admission creatinine 2.6. Patient also found to have dark stools. We will hold chemical anticoagulation and consult gastroenterology. Start IV Protonix. Family in agreement with EGD if required. Patient has chronic atrial fibrillation and will currently hold home Coreg for soft blood pressures. Will resume as tolerated. Continue insulin sliding scale for diabetes mellitus type 2. Continue home levothyroxine. Patient and family updated on the plan and in agreement. All questions answered to satisfaction. Repeat hematology and chemistry panel in AM. Dr. Dea MD
--- NOTE | 2024-05-10 15:00 | PC.SS ---
Update: SS met with patient and remaining family at bedside. Physician team indicated possible hospice. SS spoke to patient who is alert. Patient resides at home alone. However, he has 24 hour care from a private care agency, [facility]. Patient has careproviders round the clock 7 days a week. He was admitted for gen. weakness and UTI. Family provides all transportation to appointments. They prefer to be present to speak with physician's to get updates. Patient uses a walker, 02 ([employer]) and wheelchair as well as a amanda lift and hospital bed. Patient was already open to [facility] and patient and family prefer for patient to return home with services. Patient verbalized he wants his daughter, Tali, to the [facility] medical decision maker.
--- NOTE | 2024-05-10 17:14 | PC.PT ---
Patient is safe to sit up at the EOB and transfer to sitting in the chair at bedside with 1 staff assist and a FWW for safety. RN made aware.
[2024-05-10 17:32] LABS: Hematocrit 19.3 % (41.0-53.0); Hemoglobin 6.6 g/dL (13.5-16.0)
--- NOTE | 2024-05-10 18:03 | PD.IMCONS ---
HPI Data of Consult Requesting Physician: Juan Ramon Lopes MD Primary Care Provider: Physician No Primary/Family Consult Narrative Reason for consult: melena History of present illness: 89 years old male being asked for evaluation by the internal medicine team for a drop in hemoglobin hematocrit to 6.5 and 18.7 and melanotic stools Patient had received prednisone in the past and currently admitted for gram negative bacteremia sepsis UTI he also has diabetes mellitus type 2 and atrial fibrillation cc:: cc: Juan Ramon Lopes MD Review of Systems Review of Systems Systems Reviewed: All systems reviewed, normal except as documented Past Medical History Surgical History OTHER SURGICAL HX: As in the history of present illness Meds Home Medications and Allergies Home Medications ?Medication ?Instructions ?Recorded ?Confirmed ?Type Docosahexanoic Acid/Epa (Fish Oil 1,400 mg PO DAILY ##0 05/14/13 01/04/24 History 1,000 Mg Softgel) flaxseed oil 1,030 mg capsule 1,400 mg PO BID #0 caps 05/14/13 01/04/24 History levothyroxine 175 mcg tablet 225 mcg PO QDAY #0 tabs 05/14/13 01/08/24 History (Synthroid) omeprazole 20 mg capsule,delayed 20 mg PO QDAY ##0 05/14/13 01/04/24 History release (Prilosec) Glucosamine/MSM/Chondroitin A * 1 tab PO QDAY #0 tabs 11/13/13 01/04/24 History (TRIPLEFLEX *) celecoxib 200 mg capsule 200 mg PO QDAY 01/04/24 01/04/24 History Held on 01/09/24. Instructions: Resume on 01/16/24. Please see your PCP within 1 week, after repeating your CMP labs. fluticasone furoate 50 mcg inhalation 01/04/24 History mcg/actuation blister powder for inhalation metformin 1,000 mg tablet 1,500 mg PO QDAY 01/04/24 01/08/24 History tamsulosin 0.4 mg capsule mg PO BID 01/04/24 History acetaminophen 325 mg tablet 650 mg PO Q4H PRN Pain 01/08/24 01/08/24 History (Tylenol) Allergies Allergy/AdvReac Type Severity Reaction Status Date / Time bacitracin (From Neosporin Allergy Mild Redness of Verified 05/09/24 18:33 ([id number])) Skin neomycin (From Neosporin Allergy Mild Redness of Verified 05/09/24 18:33 ([id number])) Skin polymyxin B (From Neosporin Allergy Mild Redness of Verified 05/09/24 18:33 ([id number])) Skin Exam Vital Signs Temp Pulse Resp BP Pulse Ox O2 Del Method O2 Flow Rate 98.6 F 94 19 122/59 L 99 Room Air 1 05/10/24 16:00 05/10/24 16:00 05/10/24 16:00 05/10/24 16:00 05/10/24 16:00 05/10/24 16:00 05/10/24 12:00 Routine Abdominal Exam Comments: Soft nontender Results Labs 05/10/24 17:14 05/10/24 04:35 Labs: Short CBC 05/09/24 05/10/24 05/10/24 Range/Units 18:00 04:35 07:05 WBC 22.5 H 13.2 H D (3.8-10.6) Thou/mm3 Hgb 8.7 L 6.5 L* D 7.0 L (13.5-16.0) g/dL Hct 25.6 L 18.7 L* 20.7 L* (41.0-53.0) % Plt Count 272 155 D (140-440) Thou/mm3 05/10/24 Range/Units 17:14 WBC (3.8-10.6) Thou/mm3 Hgb 6.6 L* (13.5-16.0) g/dL Hct 19.3 L* (41.0-53.0) % Plt Count (140-440) Thou/mm3 BMP 05/09/24 05/09/24 05/10/24 18:00 21:46 04:35 Sodium 131 L 133 L 132 L Potassium 6.0 H 4.7 D 4.6 Chloride 99 103 103 Carbon Dioxide 17.1 L 17.6 L 19.7 L BUN 69 H 65 H 67 H Creatinine 2.6 H 2.5 H 2.6 H Glucose 248 H 254 H 154 H D Calcium 8.5 8.7 7.7 L Cardiac Enzymes 05/09/24 05/09/24 Range/Units 18:00 21:46 Troponin I 0.088 H* 0.083 H* (0.0-0.045) ng/mL Liver Function 05/09/24 05/10/24 Range/Units 18:00 04:35 Total Bilirubin 0.7 0.3 (0.3-1.2) mg/dL AST < 10 10 (0-34) U/L ALT 20 13 (10-49) U/L Alkaline Phosphatase 132 H 91 D (46-116) U/L Albumin 3.4 2.6 L D (3.4-4.8) gm/dL Urine 05/09/24 Range/Units 17:55 Urine Color Lt-Yellow (Lt Yel-Yel) Urine Clarity Clear (Clear/Hazy) Urine pH 5.5 (5.0-7.0) Ur Specific [place] 1.008 (1.001-1.035) Urine Protein Trace (Neg - Trace) Urine Glucose (UA) Negative (Negative) Assessment and Plan Additional Assessment & Plan Additional Plan: Melena Posthemorrhagic anemia Plan Consent obtained for fiberoptic esophagogastroduodenoscopy with possible biopsy possible therapeutic intervention under intravenous moderate sedation scheduled for tomorrow Other medical problems include Chronic atrial fibrillation Diabetes mellitus type 2 Essential hypertension Gram-negative bacteremia/UTI Thank you very much for the opportunity to participate in care of this patient
[2024-05-10] MEDS: SODIUM CHLORIDE 0.9% 1000 ML 1,000 ML 75 ML IV (18:40)
[2024-05-10] MEDS: PANTOPRAZOLE/NS 80MG IV PREMIX 80 MG/100 ML BAG 10 MG IV (19:13)
--- NOTE | 2024-05-10 23:00 | PC.NURSE ---
Per Dr. Bailon transfuse 2 units of PRBCs' then post H&H lab draw.
[2024-05-11] VITALS (25 sets, daily range): BP systolic 107–158; BP diastolic 58–98; PULSE 67–101; RESP 13–96; TEMP 36.2–37.5; O2SAT 95–100; BMI 25.2
[2024-05-11] MEDS: PANTOPRAZOLE/NS 80MG IV PREMIX 80 MG/100 ML BAG 10 MG IV ×2 (03:16→14:51)
[2024-05-11 05:49] LABS: Basophils % (Auto) 0 % (0-2.5); Eosinophils # (Auto) 0.3 Thou/mm3 (0.0-0.5); Eosinophils % (Auto) 3 % (0-10); Hematocrit 25.1 % (41.0-53.0); Immature Granulocytes % (Auto) 2 % (0-0); Immature Granulocytes Auto 0.31 Thou/mm3 (0.00-0.00); Lymphocytes % (Auto) 7 % (10-50); Mean Corpuscular HGB Conc 35.1 g/dl (31.0-37.0); Mean Corpuscular Hemoglobin 29.8 pg (25.0-35.0); Mean Corpuscular Volume 85 fL (80-100); Monocytes # (Auto) 0.7 Thou/mm3 (0.0-0.8); Monocytes % (Auto) 6 % (0-12); Neutrophils % (Auto) 82 % (37-80); Nucleated Red Blood Cell % 0 /100 WBC (0); Platelet Count 187 Thou/mm3 (140-440); Red Blood Count 2.95 Miln/mm3 (4.50-5.90); White Blood Count 13.3 Thou/mm3 (3.8-10.6)
[2024-05-11 05:51] LABS: Hemoglobin 8.8 g/dL (13.5-16.0)
[2024-05-11 06:36] LABS: Alanine Aminotransferase 11 U/L (10-49); Albumin, Serum 2.8 gm/dL (3.4-4.8); Albumin/Globulin Ratio 1.2 (1.2-2.2); Alkaline Phosphatase 99 U/L (46-116); Anion Gap 10 (7-16); Aspartate Amino Transferase < 8 U/L (0-34); BUN/Creatinine Ratio 24 Ratio (12-20); Bilirubin,Total 0.4 mg/dL (0.3-1.2); Blood Urea Nitrogen 71 mg/dL (9-23); Calcium 7.9 mg/dL (8.3-10.6); Calcium (Corrected) 8.9 mg/dL (8.5-10.1); Carbon Dioxide 18.5 mMol/L (20.0-31.0); Chloride 102 mMol/L (98-107); Globulin 2.3 gm/dL (2.3-3.5); Glucose 124 mg/dL (74-106); Magnesium 2.4 mg/dL (1.6-2.6); Osmolality,Calculated 282 (275-295); Phosphorous 4.4 mg/dL (2.4-5.1); Potassium 4.8 mMol/L (3.4-5.1); Sodium 130 mMol/L (136-145); Total Protein 5.1 gm/dL (5.7-8.2); eGFR 19 See Note
[2024-05-11] MEDS: carVEDILOL 3.125 MG TABLET 6.25 MG PO (08:35)
[2024-05-11] MEDS: cefTRIAXone/D5w 2gm 2 GM/50 ML BAG IV (08:35)
[2024-05-11] MEDS: FUROSEMIDE INJ 10 MG/ML 4ML VIAL 40 MG IVP (08:35)
[2024-05-11] MEDS: TAMSULOSIN HCL 0.4 MG CAPSULE PO (08:35)
[2024-05-11 09:19] LABS: Hematocrit 25.2 % (41.0-53.0); Hemoglobin 8.9 g/dL (13.5-16.0)
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
--- NOTE | 2024-05-11 13:02 | ESPR_ITS ---
<Statement entered by Jade Biswas MD - 05/12/24 00:56> Patient was seen and examined by me personally. I have directly supervised and reviewed documentation by the team resident and agree with its findings with any exceptions or additional findings as below. Plan of care was discussed with the attending, Dr. Malin. Patient seen this morning, denied any complaints or pain, pleasant and conversational. Patient states that he lives at home alone, but he has in-home care with [facility]. Patient has been using incontinence briefs lately and is unsure of his typical urination pattern. Blood cultures are growing GNR, and urine cultures showed pansensitive E. coli. Patient is receiving IV ceftriaxone 2 g qday for bacteremia. Overnight received 2 PRBCs and post Hgb was 8.8 and stable. He is planned for EGD today to investigate GI bleed. Patient's creatinine uptrended from 2.6 to 3.0, despite receiving IV fluid resuscitation on admission. Initially felt that patient may have some level of cardiorenal given history of CHF with EF 40-45% in December 2023. Therefore Lasix 40 mg IV dose was given this morning and patient had a large amount of clear urine output in the [place]. Consulted with Nephrology, who felt that patient seems actually dry and recommends further IV fluids. Will start fluids after patient returns from EGD. He may have some level of ATN given presentation of severe sepsis on admission. Continue to monitor strict I&Os. Jade Biswas, PGY-2 Documentation for date of: 05/11/24 Subjective Subjective Interval history: 05/11/2024: No acute overnight events to report, patient received 2 units of PRBC and upon rechecking hemoglobin there was satisfactory increase in levels. This morning patient seen and assessed in hospital bed; remains n.p.o. except for water with medication SEs scheduled for open endoscopy with Dr. Do for suspicion of upper GI bleed. Patient continues to be treated with IV antibiotics secondary to E. coli bacteremia and UTI. Patient's kidney function is worsening per laboratory findings today; initial suspicion is that patient has some degree of cardiorenal syndrome. As such, patient was given a x 1 dose of Lasix 40 mg IV. Nephrology was consulted for recommendations and their belief that the patient is volume down and they requested the patient receive some IV fluid resuscitation upon coming back from EGD. Will continue to monitor the patient and consider IV fluid resuscitation. Exam Vital Signs Temp Pulse Resp BP Pulse Ox O2 Del Method O2 Flow Rate 99.5 F 81 19 141/70 H 99 Room Air 1 05/11/24 08:00 05/11/24 12:00 05/11/24 08:00 05/11/24 08:35 05/11/24 08:00 05/11/24 08:00 05/10/24 12:00 Narrative Exam GEN: Awake, able to speak full sentences HEENT: NC/AC, oral mucosa dry, neck supple CVS: RRR, S1-S2 present, no murmurs appreciated RESP: Crackles heard bilaterally, no wheeze/rales/rhonci, on 2L satting 98+ GI: soft, non distended,nontender, no rigidity or rebound tenderness, borborygmi apparent. MSK: able to move all 4 limbs, no lower extremity edema PAINTING TECHNICIAN: AOx3, CN II-XII and no focal neurological defitits noted. Objective Labs 05/12/24 05:49 05/12/24 05:49 Labs: Laboratory Results - last 24 hr 05/10/24 05/10/24 05/11/24 01:21 17:14 05:07 WBC 13.3 H RBC 2.95 L Hgb 6.6 L* 8.8 L D Hct 19.3 L* 25.1 L MCV 85 MCH 29.8 MCHC 35.1 RDW Std Deviation 47.0 H Plt Count 187 D Neut % (Auto) 82 H Lymph % (Auto) 7 L [place] % (Auto) 6 Eos % (Auto) 3 Baso % (Auto) 0 Neut # (Auto) 11.0 H Lymph # (Auto) 1.0 [place] # (Auto) 0.7 Eos # (Auto) 0.3 Baso # (Auto) 0.0 Immature Gran # (Auto) 0.31 H Absolute Nucleated RBC 0.00 Immature Gran % 2 H Nucleated RBC % 0 Sodium 130 L Potassium 4.8 Chloride 102 Carbon Dioxide 18.5 L Anion Gap 10 BUN 71 H Creatinine 3.0 H Estim Creat Clear Calc 19.0 L eGFR 19 L BUN/Creatinine Ratio 24 H Glucose 124 H Calculated Osmolality 282 Calcium 7.9 L Corrected Calcium 8.9 Phosphorus 4.4 Magnesium 2.4 Total Bilirubin 0.4 AST < 8 ALT 11 Alkaline Phosphatase 99 Total Protein 5.1 L Albumin 2.8 L Globulin 2.3 Albumin/Globulin Ratio 1.2 Blood Type A Positive Antibody Screen NEGATIVE Crossmatch See Detail Blood Bank Wristband ID Yes 05/11/24 09:09 WBC RBC Hgb 8.9 L Hct 25.2 L MCV MCH MCHC RDW Std Deviation Plt Count Neut % (Auto) Lymph % (Auto) [place] % (Auto) Eos % (Auto) Baso % (Auto) Neut # (Auto) Lymph # (Auto) [place] # (Auto) Eos # (Auto) Baso # (Auto) Immature Gran # (Auto) Absolute Nucleated RBC Immature Gran % Nucleated RBC % Sodium Potassium Chloride Carbon Dioxide Anion Gap BUN Creatinine Estim Creat Clear Calc eGFR BUN/Creatinine Ratio Glucose Calculated Osmolality Calcium Corrected Calcium Phosphorus Magnesium Total Bilirubin AST ALT Alkaline Phosphatase Total Protein Albumin Globulin Albumin/Globulin Ratio Blood Type Antibody Screen Crossmatch Blood Bank Wristband ID Quality Measures Quality Measures none Advance care planning discussed with:: patient and child Assessment & Plan Assessment Current Active Medications: Generic Name Dose Route Start Last Admin Trade Name Freq PRN Reason Stop Dose Admin Acetaminophen 650 mg 05/09/24 20:33 Acetaminophen 325 Mg Tablet PO 06/08/24 20:32 Q6H PRN Fever >101.5 Acetaminophen 650 mg 05/09/24 20:33 Acetaminophen 325 Mg Tablet PO 06/08/24 20:32 Q6H PRN PAIN SCALE 1-3 (mild Carvedilol 6.25 mg 05/11/24 08:00 05/11/24 08:35 Carvedilol 3.125 Mg Tablet PO 06/10/24 07:59 6.25 mg BIDWM TANGELA Administration Dextrose 25 ml 05/09/24 20:26 Dextrose 50%-Water Inj 50 Ml Syringe IV 06/08/24 20:25 Q15MIN PRN BG 50-70 responsive npo pt Dextrose 50 ml 05/09/24 20:26 Dextrose 50%-Water Inj 50 Ml Syringe IV 06/08/24 20:25 Q15MIN PRN BG <50 OR BG <70 & pt unresponsive Glucagon 1 mg 05/09/24 20:26 Glucagon Inj 1 Mg Vial IM Q15MIN PRN BG <70, and no IV access Ceftriaxone Sodium/Dextrose 2 gm in 50 mls @ 100 mls/hr 05/10/24 09:00 05/11/24 08:35 Rocephin/D5w 2gm IV 05/17/24 08:59 100 mls/hr QDAY TANGELA Administration Pantoprazole Sodium 80 mg in 100 mls @ 10 mls/hr 05/10/24 17:45 05/11/24 03:16 Protonix/Ns 80mg Iv Premix IV 05/13/24 15:44 10 mls/hr Q10H TANGELA Administration Insulin Human Lispro 0 unit 05/10/24 07:30 05/11/24 12:14 Insulin Lispro (Admelog) 1 Unit/0.01 Ml Unit SC 06/09/24 07:29 Not Given AC TANGELA Protocol Levothyroxine Sodium 200 mcg 05/11/24 06:00 05/11/24 06:42 Levothyroxine Sodium 100 Mcg Tablet PO 06/10/24 05:59 Not Given ACBR TANGELA Ondansetron HCl 4 mg 05/09/24 20:33 Ondansetron Inj 2 Mg/Ml Inj 2 Ml IV 06/08/24 20:32 Q6H PRN NAUSEA OR VOMITING Protocol Sennosides 1 tab 05/11/24 09:00 05/11/24 08:40 Senna Tablet PO 06/10/24 08:59 Not Given QDAY TANGELA Protocol Tamsulosin HCl 0.4 mg 05/10/24 09:00 05/11/24 08:35 Tamsulosin Hcl 0.4 Mg Capsule PO 06/09/24 08:59 0.4 mg QDAY TANGELA Administration Plan 89-year-old male patient with past medical history of hypertension, BPH, HFpEF, melanoma, hypothyroidism, A-fib with RVR, diabetes mellitus type 2 was brought to the ED by his daughter after she noticed that the patient was weak and confused. Patient was admitted for treatment of severe sepsis secondary to UTI; suspicion for upper GI bleed pending EGD and LUIS on CKD St3.b. #Severe sepsis secondary to UTI #Gram-negative bacteremia #Lactic acidosis secondary to sepsis #History of BPH At the ED patient was noticed to have body temperature of 102.5, pulse rate of 122, respiratory rate of 26. He is saturating well on room air . CBC showed WBC of 22.5, hemoglobin of 8.7, CO2 17.1, anion gap of 15, BUN of 69, serum creatinine 2.6 his baseline serum creatinine is 1.6, lactic acid 5.5, procalcitonin 34.55 urinalysis was positive for WBCs 45 on high-power field, positive bacteria 3. Patient was given a liter of fluids in the ED due to the concern of his HFpEF and was given 1 dose of Rocephin in addition to his Tylenol On review of the patient's chart we noted that the patient is using tamsulosin for his benign prostatic hyperplasia Blood culture both bottles grew GNR - pending speciation Abdominal U/S shows: No signs of cholelithiasis, negative for cholecystitis, mild hepatomegaly fatty liver, mild bilateral hydronephrosis, moderate bilateral renal parenchymal scar formation and mild splenomegaly Edema surrounding the left kidney noted. Urine culture shows jackson-sensitive e.coli Plan: Continue Rocephin to 2 g daily [place]'s catheter in Continue home medication tamsulosin 0.4 mg p.o. daily #Suspicion for Upper GI Bleed Patient's daughter reported that she noticed that her father has some episodes of black tarry stool. Denied any history of cirrhosis however he has history of chronic daily use of alcohol in which she drink 1 to 2 glasses of wine daily Denied any use of ibuprofen, however the patient is on iron supplements On prednisone for diarrhea as noted below, increased risk for ulcer development His hemoglobin 8.7 --> 6.5 --> 7.0 Plan: Dr. 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 Jenkins, appreciate recommendations Will consider IV fluid resuscitation after the patient comes back from EGD as nephrology believes the patient is dry Urine sodium and creatinine ordered Follow-up on renal panel Avoid nephrotoxic agents #Non-insulin dependent type 2 diabetes mellitus Patient on metformin, pending offical med rec A1c of 6.4 Plan: SSI #Hypothyroidism Home medication levothyroxine TSH of 0.03 Free T4 of 1.29 Plan: Continue home dose levothyroxine #History of A-fib with RVR CHADVASc score of 4 Pending med rec Plan: Holding apixaban/anticoagulation at this time until we rule out GI bleed as the patient has black tarry stool #History of HFpEF #History of hypertension Last ECHO from 12/27 showed: normal LV size, LV function mildly reduced with an EF of around 40 to 45%. Diastolic dysfunction stage I. Normal RV size and function. Mild TR Moderate MR. Mild aortic valve sclerosis without stenosis trace AI In no acute exacerbation at this time Normotensive Plan: Resumed home Coreg 6.25mg BID Will hold on valsartan and resume when appropriate #History of melanoma on steroid As per the daughter the patient has melanoma in which he received some chemotherapy that resulted on has chronic diarrhea for that reason he was prescribed prednisone to decrease his diarrhea side effect Plan: Resume home medications upon med reconciliation Hospital Management: Diet: Renal diet with carb consistent Lines: PIV, [place] Bowel: Senna DVT prophylaxis: SCD until rule out GI bleed GI prophylaxis: Protonix Dispo: IV antibiotics for sepsis 2/2 uti and bacteremia and suspcion for GI bleed; consulted GI Code status: DNR Patient seen and assessed with attending Dr. Malin and senior resident Dr. Zulay Vences, PGY-1 Attending Provider Attestation/Addendum I have examined the patient, reviewed labs and imaging findings, discussed the case with the resident(s), and reviewed entered orders. I agree with the plan of care as outlined in this note, with these additional summaries/recommendations: Patient seen at bedside. No acute overnight events. Today patient appears more alert and interactive. Patient has no new symptoms to report today. Patient admitted for sepsis secondary to urinary tract infection and bacteremia. Urine culture Eschericha coli. Blood cultures preliminarily showing gram-negative rods. Continue IV antibiotics. Meets sepsis criteria with evidence of endorgan damage with acute kidney injury. Acute kidney injury most likely secondary to prerenal azotemia in the setting of sepsis. Renally dose medications and avoid nephrotoxic agents. Renal function worsened despite IV fluids and we will consult nephrology. Patient also found to have dark stools. We will hold chemical anticoagulation and gastroenterology following. Continue IV Protonix. Patient will go for EGD today. Patient has chronic atrial fibrillation and currently holding home Coreg for soft blood pressures. Will resume as tolerated. Continue insulin sliding scale for diabetes mellitus type 2. Continue home levothyroxine. Repeat hematology and chemistry panel in AM. Dr. Dea MD
--- NOTE | 2024-05-11 13:07 | PC.NURSE ---
Pt was taken for EGD
--- NOTE | 2024-05-11 13:54 | SUR.PHASEI ---
pt received from OR in recovery bay 2. pt asleep but responds to voice, breathing unlabored on room air. v/s stable. report received from Anita KOHLER.
--- NOTE | 2024-05-11 14:24 | SUR.PHASEI ---
pt asleep but responds to voice, breathing unlabored on room air. v/s stable. report called to Antonieta Hernandez. pt will be transferred to room at this time.
[2024-05-11] MEDS: NA SU/NAHCO3/KC/PEG (Golytely) 4,000 ML BTL 4000 ML PO (14:51)
[2024-05-11] MEDS: SODIUM CHLORIDE 0.9% 1000 ML 1,000 ML 80 ML IV (17:18)
[2024-05-12] VITALS (10 sets, daily range): BP systolic 148–160; BP diastolic 72–84; PULSE 67–100; RESP 14–100; TEMP 36–36.6; O2SAT 93–100; BMI 23.7
[2024-05-12] MEDS: PANTOPRAZOLE/NS 80MG IV PREMIX 80 MG/100 ML BAG 10 MG IV (01:43)
[2024-05-12] MEDS: LEVOTHYROXINE SODIUM 100 MCG TABLET 200 MCG PO (05:23)
[2024-05-12 06:33] LABS: Basophils % (Auto) 0 % (0-2.5); Eosinophils # (Auto) 0.7 Thou/mm3 (0.0-0.5); Eosinophils % (Auto) 6 % (0-10); Hematocrit 26.9 % (41.0-53.0); Hemoglobin 9.2 g/dL (13.5-16.0); Immature Granulocytes % (Auto) 0 % (0-0); Immature Granulocytes Auto 0.04 Thou/mm3 (0.00-0.00); Lymphocytes # (Auto) 1.1 Thou/mm3 (1.0-4.8); Lymphocytes % (Auto) 11 % (10-50); Mean Corpuscular HGB Conc 34.2 g/dl (31.0-37.0); Mean Corpuscular Hemoglobin 29.3 pg (25.0-35.0); Mean Corpuscular Volume 86 fL (80-100); Monocytes # (Auto) 0.6 Thou/mm3 (0.0-0.8); Monocytes % (Auto) 6 % (0-12); Neutrophils # (Auto) 7.8 Thou/mm3 (1.8-7.7); Neutrophils % (Auto) 76 % (37-80); Nucleated Red Blood Cell % 0 /100 WBC (0); Platelet Count 172 Thou/mm3 (140-440); RDW Standard Deviation 48.6 fL (35.1-43.9); Red Blood Count 3.14 Miln/mm3 (4.50-5.90); White Blood Count 10.2 Thou/mm3 (3.8-10.6)
[2024-05-12 06:53] LABS: Alanine Aminotransferase 11 U/L (10-49); Albumin, Serum 2.8 gm/dL (3.4-4.8); Albumin/Globulin Ratio 1.2 (1.2-2.2); Alkaline Phosphatase 111 U/L (46-116); Anion Gap 11 (7-16); Aspartate Amino Transferase 12 U/L (0-34); BUN/Creatinine Ratio 22 Ratio (12-20); Bilirubin,Total 0.4 mg/dL (0.3-1.2); Blood Urea Nitrogen 71 mg/dL (9-23); Calcium 8.1 mg/dL (8.3-10.6); Calcium (Corrected) 9.1 mg/dL (8.5-10.1); Carbon Dioxide 21.4 mMol/L (20.0-31.0); Chloride 102 mMol/L (98-107); Creatinine (Component) 3.2 mg/dL (0.6-1.3); Estimated Creatinine Clearance 17.9 mL/min (>60); Globulin 2.4 gm/dL (2.3-3.5); Glucose 85 mg/dL (74-106); Magnesium 2.3 mg/dL (1.6-2.6); Osmolality,Calculated 288 (275-295); Phosphorous 4.7 mg/dL (2.4-5.1); Potassium 4.2 mMol/L (3.4-5.1); Sodium 134 mMol/L (136-145); Total Protein 5.2 gm/dL (5.7-8.2); eGFR 18 See Note
[2024-05-12] MEDS: carVEDILOL 3.125 MG TABLET 6.25 MG PO ×2 (08:10→16:30)
[2024-05-12] MEDS: TAMSULOSIN HCL 0.4 MG CAPSULE PO (08:10)
[2024-05-12] MEDS: SENNA TABLET 1 TAB PO (08:11)
[2024-05-12] MEDS: cefTRIAXone/D5w 2gm 2 GM/50 ML BAG IV (08:11)
[2024-05-12] MEDS: SODIUM CHLORIDE 0.9% 1000 ML 1,000 ML 80 ML IV (08:11)
[2024-05-12 09:46] LABS: Creatinine,Random Urine 16 mg/dL (30-125); Sodium,Urine Random 81.2 mMol/L (20.0-110.0)
[2024-05-12] MEDS: PANTOPRAZOLE INJ 40 MG VIAL IVP (10:23)
--- NOTE | 2024-05-12 12:07 | PD.RESPRO ---
Documentation for date of: 05/12/24 Subjective Subjective Interval history: 05/12/2024 Patient was seen and examined at bedside in the tele. No acute overnight events. Patient is currently consuming GoLytely and getting prepared for the colonoscopy. Denies blood while having bowel movements. Denies any other complaints. Urine output is adequate. Vitals are stable. Labs showed continuous uptrending of serum creatinine from 3-3.2, likely ATN in the setting of sepsis and decreased oral intake. Continue maintenance fluids. Will monitor renal functions for now Exam Vital Signs Temp Pulse Resp BP Pulse Ox O2 Del Method O2 Flow Rate 97.8 F 80 25 H 159/84 H 97 Room Air 3 05/12/24 08:00 05/12/24 11:10 05/12/24 11:10 05/12/24 08:10 05/12/24 08:00 05/12/24 08:00 05/11/24 13:45 Narrative Exam General: Awake. HEENT: Normocephalic, atraumatic, mucous membranes moist. Heart: Irregular rate and rhythm, no murmurs. Lungs: Clear to auscultation with no wheezing or crackles. Abdomen: Soft, nondistended, nontender, positive bowel sounds. ?No guarding or rebound tenderness. Neurologic: Alert and oriented x3, no gross neurological deficit, and patient able to move all 4 extremities. Extremities: No edema. Skin: No rash or ecchymoses. Objective Labs 05/13/24 07:38 05/13/24 07:38 Labs: Laboratory Results - last 24 hr 05/12/24 05/12/24 05:49 07:30 WBC 10.2 RBC 3.14 L Hgb 9.2 L Hct 26.9 L MCV 86 MCH 29.3 MCHC 34.2 RDW Std Deviation 48.6 H Plt Count 172 Neut % (Auto) 76 Lymph % (Auto) 11 [place] % (Auto) 6 Eos % (Auto) 6 Baso % (Auto) 0 Neut # (Auto) 7.8 H Lymph # (Auto) 1.1 [place] # (Auto) 0.6 Eos # (Auto) 0.7 H Baso # (Auto) 0.0 Immature Gran # (Auto) 0.04 H Absolute Nucleated RBC 0.00 Immature Gran % 0 Nucleated RBC % 0 Sodium 134 L Potassium 4.2 D Chloride 102 Carbon Dioxide 21.4 Anion Gap 11 BUN 71 H Creatinine 3.2 H Estim Creat Clear Calc 17.9 L eGFR 18 L BUN/Creatinine Ratio 22 H Glucose 85 Calculated Osmolality 288 Calcium 8.1 L Corrected Calcium 9.1 Phosphorus 4.7 Magnesium 2.3 Total Bilirubin 0.4 AST 12 ALT 11 Alkaline Phosphatase 111 Total Protein 5.2 L Albumin 2.8 L Globulin 2.4 Albumin/Globulin Ratio 1.2 Ur Random Creatinine 16 L Ur Random Sodium 81.2 Quality Measures Quality Measures none Advance care planning discussed with:: patient Assessment & Plan Assessment Current Active Medications: Generic Name Dose Route Start Last Admin Trade Name Freq PRN Reason Stop Dose Admin Acetaminophen 650 mg 05/09/24 20:33 Acetaminophen 325 Mg Tablet PO 06/08/24 20:32 Q6H PRN Fever >101.5 Acetaminophen 650 mg 05/09/24 20:33 Acetaminophen 325 Mg Tablet PO 06/08/24 20:32 Q6H PRN PAIN SCALE 1-3 (mild Carvedilol 6.25 mg 05/11/24 08:00 05/12/24 08:10 Carvedilol 3.125 Mg Tablet PO 06/10/24 07:59 6.25 mg BIDWM TANGELA Administration Dextrose 25 ml 05/09/24 20:26 Dextrose 50%-Water Inj 50 Ml Syringe IV 06/08/24 20:25 Q15MIN PRN BG 50-70 responsive npo pt Dextrose 50 ml 05/09/24 20:26 Dextrose 50%-Water Inj 50 Ml Syringe IV 06/08/24 20:25 Q15MIN PRN BG <50 OR BG <70 & pt unresponsive Glucagon 1 mg 05/09/24 20:26 Glucagon Inj 1 Mg Vial IM Q15MIN PRN BG <70, and no IV access Ceftriaxone Sodium/Dextrose 2 gm in 50 mls @ 100 mls/hr 05/10/24 09:00 05/12/24 08:11 Rocephin/D5w 2gm IV 05/17/24 08:59 100 mls/hr QDAY TANGELA Administration Sodium Chloride 1,000 mls @ 80 mls/hr 05/12/24 07:46 05/12/24 08:11 Ns IV 05/12/24 20:15 80 mls/hr .[id number] TANGELA Administration Insulin Human Lispro 0 unit 05/10/24 07:30 05/12/24 11:09 Insulin Lispro (Admelog) 1 Unit/0.01 Ml Unit SC 06/09/24 07:29 Not Given AC TANGELA Protocol Levothyroxine Sodium 200 mcg 05/11/24 06:00 05/12/24 05:23 Levothyroxine Sodium 100 Mcg Tablet PO 06/10/24 05:59 200 mcg ACBR TANGELA Administration Ondansetron HCl 4 mg 05/09/24 20:33 Ondansetron Inj 2 Mg/Ml Inj 2 Ml IV 06/08/24 20:32 Q6H PRN NAUSEA OR VOMITING Protocol Pantoprazole Sodium 40 mg 05/12/24 10:00 05/12/24 10:23 Pantoprazole Inj 40 Mg Vial IVP 06/11/24 09:59 40 mg QDAY TANGELA Administration Sennosides 1 tab 05/11/24 09:00 05/12/24 08:11 Senna Tablet PO 06/10/24 08:59 1 tab QDAY TANGELA Administration Protocol Tamsulosin HCl 0.4 mg 05/10/24 09:00 05/12/24 08:10 Tamsulosin Hcl 0.4 Mg Capsule PO 06/09/24 08:59 0.4 mg QDAY TANGELA Administration Plan A 89-year-old male patient with past medical history of hypertension, BPH, HFpEF, melanoma, hypothyroidism, A-fib with RVR, urinary incontinence due to acute illness, diabetes mellitus type 2 was brought to the ED by his daughter after she noticed that the patient was weak and confused and admitted for sepsis secondary to UTI. 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, stage IIIb Likely prerenal VS ATN in the setting of sepsis secondary to UTI Underlying type 2 diabetes mellitus -Patient was brought to the hospital with the complaints of fever and confusion -Vitals showed blood pressure 128/71, pulse rate 122, respiratory rate 26, temperature 102.5 ?F -Labs done at the time of admission showed sodium 131, potassium 6.0, CO2 17.1, anion gap of 15, BUN of 69, serum creatinine 2.6, glucose of 248, lactic acid 5.5 -His baseline serum creatinine is 1.6-2 since 2023 -Abdominal ultrasound showed moderate bilateral renal parenchymal scarring with mild bilateral hydronephrosis -Patient has history of BPH and is on ? Tamsulosin -On 05/12/2024, BUN 71, creatinine 3.2 Plan -Continue maintenance fluids, NS at 80 mL/h -Patient is currently on GoLytely for colonoscopy preparations, educated on fluid intake -Continue to monitor renal functions for now, as the urine output seems to be adequate -Avoid nephrotoxic medication and renally dose medications -Continue antibiotics for UTI #Anemia Likely multifactorial-Eliquis, anemia of chronic kidney disease, iron deficiency, GI bleed -Patient found to be anemic since 2021 -Patient is found to be iron deficient in 2023, and on iron supplements -Hemoglobin at the time of admission is 8.7 Plan -Eliquis is held -Monitor CBC -Endoscopy done showed gastritis with congestion -Colonoscopy is pending # History of hypertension -Blood pressures are ranging from 130-150/70-80 during this hospital admission Plan -Avoid MIMI inhibitor/ARB's for now -Continue carvedilol . Titrate dose based on blood pressures and heart rate -Continue to monitor blood pressures #Severe sepsis secondary to UTI #Gram-negative bacteremia #Lactic acidosis secondary to sepsis #History of BPH #Suspicion for Upper GI Bleed #Non-insulin dependent type 2 diabetes mellitus #Hypothyroidism #History of A-fib with RVR #History of HFpEF #History of hypertension #History of melanoma on steroid Rest of the medical conditions to be treated as per primary team Thank you for allowing us to involved in the care of the patient with Patient plan of care was discussed with the attending physician, Dr. Gregory Toure, PGY1 Attending Provider Attestation/Addendum Patient seen and examined with resident physician Dr. Austin. Note reviewed, agree with findings and recommendations. Patient clinically seems to be doing better. Continue with fluids. Good urine output. Suspect ATN. Probably in the diuretic phase of ATN.
--- NOTE | 2024-05-12 14:32 | PD.RESPRO ---
Documentation for date of: 05/12/24 Subjective Subjective Interval history: Yesterday, EGD was done which showed gastritis with hemorrhage and edema. Per GI recommends to continue with colonoscopy to further rule out lower GI bleed thus was started on GoLytely. No acute events overnight.?Patient seen and examined at bedside this AM.?He reported feeling well, he is taking GoLytely and is more than half way through. Patient reports has not had a BM yet. Labs and vitals were reviewed.?Hgb stable this morning at 9.2. Creatinine continues to increase from 3.0 to 3.2. Patient continues to have good urine output with 3.8L out in the last 24 hours and a net negative of 1.55 this hospitalization. Will continue with IV fluids today. Meanwhile blood cultures resulted E. coli that is pansensitive. Continue ceftriaxone 2 g IV daily. No further complaints at this time. Review of systems otherwise negative except what is mentioned above. Exam Vital Signs Temp Pulse Resp BP Pulse Ox O2 Del Method O2 Flow Rate 97.7 F 71 15 157/84 H 100 Room Air 3 05/12/24 12:00 05/12/24 12:05/12/24 12:05/12/24 12:00 05/12/24 12:05/12/24 12:00 05/11/24 13:45 Narrative Exam Physical Exam General: Elderly male, awake and in no acute distress. Conversational and non-toxic appearing. HEENT: Normocephalic, atraumatic, mucous membranes moist. Heart: Regular rate and rhythm, no murmurs. Lungs: Clear to auscultation with no wheezing or crackles. Abdomen: Soft, nondistended, nontender, positive bowel sounds. ?No guarding or rebound tenderness. Neurologic: Alert and oriented x3, no gross neurological deficit, and patient able to move all 4 extremities. Extremities: No edema. Skin: No rash or ecchymoses. Objective Labs 05/12/24 05:49 05/12/24 05:49 Labs: Laboratory Results - last 24 hr 05/12/24 05/12/24 05:49 07:30 WBC 10.2 RBC 3.14 L Hgb 9.2 L Hct 26.9 L MCV 86 MCH 29.3 MCHC 34.2 RDW Std Deviation 48.6 H Plt Count 172 Neut % (Auto) 76 Lymph % (Auto) 11 [place] % (Auto) 6 Eos % (Auto) 6 Baso % (Auto) 0 Neut # (Auto) 7.8 H Lymph # (Auto) 1.1 [place] # (Auto) 0.6 Eos # (Auto) 0.7 H Baso # (Auto) 0.0 Immature Gran # (Auto) 0.04 H Absolute Nucleated RBC 0.00 Immature Gran % 0 Nucleated RBC % 0 Sodium 134 L Potassium 4.2 D Chloride 102 Carbon Dioxide 21.4 Anion Gap 11 BUN 71 H Creatinine 3.2 H Estim Creat Clear Calc 17.9 L eGFR 18 L BUN/Creatinine Ratio 22 H Glucose 85 Calculated Osmolality 288 Calcium 8.1 L Corrected Calcium 9.1 Phosphorus 4.7 Magnesium 2.3 Total Bilirubin 0.4 AST 12 ALT 11 Alkaline Phosphatase 111 Total Protein 5.2 L Albumin 2.8 L Globulin 2.4 Albumin/Globulin Ratio 1.2 Ur Random Creatinine 16 L Ur Random Sodium 81.2 Quality Measures Quality Measures none Advance care planning discussed with:: patient Assessment & Plan Assessment Current Active Medications: Generic Name Dose Route Start Last Admin Trade Name Freq PRN Reason Stop Dose Admin Acetaminophen 650 mg 05/09/24 20:33 Acetaminophen 325 Mg Tablet PO 06/08/24 20:32 Q6H PRN Fever >101.5 Acetaminophen 650 mg 05/09/24 20:33 Acetaminophen 325 Mg Tablet PO 06/08/24 20:32 Q6H PRN PAIN SCALE 1-3 (mild Carvedilol 6.25 mg 05/11/24 08:00 05/12/24 08:10 Carvedilol 3.125 Mg Tablet PO 06/10/24 07:59 6.25 mg BIDWM TANGELA Administration Dextrose 25 ml 05/09/24 20:26 Dextrose 50%-Water Inj 50 Ml Syringe IV 06/08/24 20:25 Q15MIN PRN BG 50-70 responsive npo pt Dextrose 50 ml 05/09/24 20:26 Dextrose 50%-Water Inj 50 Ml Syringe IV 06/08/24 20:25 Q15MIN PRN BG <50 OR BG <70 & pt unresponsive Glucagon 1 mg 05/09/24 20:26 Glucagon Inj 1 Mg Vial IM Q15MIN PRN BG <70, and no IV access Ceftriaxone Sodium/Dextrose 2 gm in 50 mls @ 100 mls/hr 05/10/24 09:00 05/12/24 08:11 Rocephin/D5w 2gm IV 05/17/24 08:59 100 mls/hr QDAY TANGELA Administration Sodium Chloride 1,000 mls @ 80 mls/hr 05/12/24 07:46 05/12/24 08:11 Ns IV 05/12/24 20:15 80 mls/hr .[id number] TANGELA Administration Insulin Human Lispro 0 unit 05/10/24 07:30 05/12/24 11:09 Insulin Lispro (Admelog) 1 Unit/0.01 Ml Unit SC 06/09/24 07:29 Not Given AC TANGELA Protocol Levothyroxine Sodium 200 mcg 05/11/24 06:00 05/12/24 05:23 Levothyroxine Sodium 100 Mcg Tablet PO 06/10/24 05:59 200 mcg ACBR TANGELA Administration Ondansetron HCl 4 mg 05/09/24 20:33 Ondansetron Inj 2 Mg/Ml Inj 2 Ml IV 06/08/24 20:32 Q6H PRN NAUSEA OR VOMITING Protocol Pantoprazole Sodium 40 mg 05/12/24 10:00 05/12/24 10:23 Pantoprazole Inj 40 Mg Vial IVP 06/11/24 09:59 40 mg QDAY TANGELA Administration Sennosides 1 tab 05/11/24 09:00 05/12/24 08:11 Senna Tablet PO 06/10/24 08:59 1 tab QDAY TANGELA Administration Protocol Tamsulosin HCl 0.4 mg 05/10/24 09:00 05/12/24 08:10 Tamsulosin Hcl 0.4 Mg Capsule PO 06/09/24 08:59 0.4 mg QDAY TANGELA Administration Plan 89-year-old male patient with past medical history of hypertension, BPH, HFpEF, melanoma, hypothyroidism, A-fib with RVR, diabetes mellitus type 2 was brought to the ED by his daughter after she noticed that the patient was weak and confused. Patient was admitted for treatment of severe sepsis secondary to UTI; suspicion for upper GI bleed pending EGD and LUIS on CKD. #Gram-negative bacteremia #Severe sepsis secondary to UTI, resolved #Lactic acidosis secondary to sepsis, resolved #History of BPH At the ED patient was noticed to have body temperature of 102.5, pulse rate of 122, respiratory rate of 26. He is saturating well on room air . CBC showed WBC of 22.5, hemoglobin of 8.7, CO2 17.1, anion gap of 15, BUN of 69, serum creatinine 2.6 his baseline serum creatinine is 1.6, lactic acid 5.5, procalcitonin 34.55 urinalysis was positive for WBCs 45 on high-power field, positive bacteria 3. Patient was given a liter of fluids in the ED due to the concern of his HFpEF and was given 1 dose of Rocephin in addition to his Tylenol On review of the patient's chart we noted that the patient is using tamsulosin for his benign prostatic hyperplasia Abdominal U/S shows: No signs of cholelithiasis, negative for cholecystitis, mild hepatomegaly fatty liver, mild bilateral hydronephrosis, moderate bilateral renal parenchymal scar formation and mild splenomegaly Edema surrounding the left kidney noted. Urine culture shows jackson-sensitive E. coli Blood culture grew jackson-sensitive E. coli Plan: Continue Rocephin to 2 g daily Underwood's catheter in Continue home medication tamsulosin 0.4 mg p.o. daily #Acute blood loss anemia #Suspicion for GI Bleed Patient's daughter reported that she noticed that her father has some episodes of black tarry stool. 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 Do consulted, appreciate recommendations GoLytely prep for colonoscopy IV protonix changed to 40 mg BID #LUIS on CKD stage IIIb Patient's creatinine uptrending from 2.6-3.0 Patient does have good urine output, nearly 2.7 L as noted in chart Baseline creatinine is between 1.5 and 1.7 Suspicion for possible cardiorenal syndrome (patient received 3 L IV fluids per sepsis protocol and 2 PRBCs overnight), as result patient was given x 1 dose of Lasix 40 mg IV Plan: Consulted nephrology, Dr. Jenkins, appreciate recommendations Will consider IV fluid resuscitation after the patient comes back from EGD as nephrology believes the patient is dry Urine sodium and creatinine ordered Follow-up on renal panel Avoid nephrotoxic agents #Non-insulin dependent type 2 diabetes mellitus Patient on metformin, pending official med rec A1c of 6.4 Plan: SSI #Hypothyroidism Home medication levothyroxine TSH of 0.03 Free T4 of 1.29 Plan: Continue home dose levothyroxine #History of A-fib with RVR CHADVASc score of 4 Pending med rec Plan: Holding apixaban/anticoagulation at this time until we rule out GI bleed as the patient has black tarry stool #History of HFpEF #History of hypertension Last ECHO from 12/27 showed: normal LV size, LV function mildly reduced with an EF of around 40 to 45%. Diastolic dysfunction stage I. Normal RV size and function. Mild TR Moderate MR. Mild aortic valve sclerosis without stenosis trace AI In no acute exacerbation at this time Normotensive Plan: Continue home Coreg 6.25mg BID Holding home valsartan and resume when appropriate #History of melanoma on steroid As per the daughter the patient has melanoma in which he received some chemotherapy that resulted on has chronic diarrhea for that reason he was prescribed prednisone to decrease his diarrhea side effect Plan: Resume home medications upon med reconciliation Hospital Management: Diet: Renal diet with carb consistent Lines: PIV, [place] Bowel: Senna DVT prophylaxis: SCD until rule out GI bleed GI prophylaxis: Protonix Dispo: IV antibiotics for sepsis 2/2 uti and bacteremia and suspcion for GI bleed; consulted GI Code status: DNR Patient plan of care was discussed with the attending physician, Dr. Malin. Jade Biswas, PGY-2 Attending Provider Attestation/Addendum I have examined the patient, reviewed labs and imaging findings, discussed the case with the resident(s), and reviewed entered orders. I agree with the plan of care as outlined in this note, with these additional summaries/recommendations: Patient seen at bedside. No acute overnight events. Patient has no new symptoms to report today. Patient underwent EGD yesterday which revealed normal esophagus, gastritis, and no source of GI bleed identified. Patient started on GoLytely prep and will go for colonoscopy when cleared. We will continue IV antibiotics for E. coli urinary tract infection and E. coli bacteremia. Acute kidney injury persists despite IV fluids. Nephrology following. Possibly due to ATN as urine output is appropriate although creatinine continues to increase. Renally dose medications and avoid nephrotoxic agents. Patient has chronic atrial fibrillation and currently holding home Coreg for soft blood pressures. Hold home anticoagulation for GI bleed. Will resume as tolerated. Continue insulin sliding scale for diabetes mellitus type 2. Continue home levothyroxine. Repeat hematology and chemistry panel in AM. Dr. Dea MD
[2024-05-12] MEDS: NA SU/NAHCO3/KC/PEG (Golytely) 4,000 ML BTL 4000 ML PO (16:12)
--- NOTE | 2024-05-12 16:19 | ESPR_ITS ---
Documentation for date of: 05/12/24 Subjective Subjective Interval history: Patient was scheduled for colonoscopy but he is not clear Additional GoLytely Colonoscopy rescheduled for tomorrow hopefully he will be cleaned by that time Clear liquid diet to continue till he is drinking GoLytely Exam Vital Signs Temp Pulse Resp BP Pulse Ox O2 Del Method O2 Flow Rate 97.7 F 72 15 157/84 H 100 Room Air 3 05/12/24 12:00 05/12/24 16:00 05/12/24 12:00 05/12/24 12:00 05/12/24 12:00 05/12/24 12:00 05/11/24 13:45 Objective Labs 05/12/24 05:49 05/12/24 05:49 Labs: Laboratory Results - last 24 hr 05/12/24 05/12/24 05:49 07:30 WBC 10.2 RBC 3.14 L Hgb 9.2 L Hct 26.9 L MCV 86 MCH 29.3 MCHC 34.2 RDW Std Deviation 48.6 H Plt Count 172 Neut % (Auto) 76 Lymph % (Auto) 11 [place] % (Auto) 6 Eos % (Auto) 6 Baso % (Auto) 0 Neut # (Auto) 7.8 H Lymph # (Auto) 1.1 [place] # (Auto) 0.6 Eos # (Auto) 0.7 H Baso # (Auto) 0.0 Immature Gran # (Auto) 0.04 H Absolute Nucleated RBC 0.00 Immature Gran % 0 Nucleated RBC % 0 Sodium 134 L Potassium 4.2 D Chloride 102 Carbon Dioxide 21.4 Anion Gap 11 BUN 71 H Creatinine 3.2 H Estim Creat Clear Calc 17.9 L eGFR 18 L BUN/Creatinine Ratio 22 H Glucose 85 Calculated Osmolality 288 Calcium 8.1 L Corrected Calcium 9.1 Phosphorus 4.7 Magnesium 2.3 Total Bilirubin 0.4 AST 12 ALT 11 Alkaline Phosphatase 111 Total Protein 5.2 L Albumin 2.8 L Globulin 2.4 Albumin/Globulin Ratio 1.2 Ur Random Creatinine 16 L Ur Random Sodium 81.2 Impressions Impression: # Acute posthemorrhagic anemia Additional GoLytely prep Colonoscopy rescheduled for tomorrow Assessment & Plan A&P Narrative Melena Posthemorrhagic anemia Plan Consent obtained for fiberoptic esophagogastroduodenoscopy with possible biopsy possible therapeutic intervention under intravenous moderate sedation scheduled for tomorrow Other medical problems include Chronic atrial fibrillation Diabetes mellitus type 2 Essential hypertension Gram-negative bacteremia/UTI Thank you very much for the opportunity to participate in care of this patient Time Spent With Patient Time: Total time spent is greater than 50% in coordination of care (as documented) at patient's floor/unit and/or counseling patient:
[2024-05-13] VITALS (22 sets, daily range): BP systolic 122–196; BP diastolic 59–104; PULSE 57–89; RESP 15–98; TEMP 36.1–36.7; O2SAT 95–100; BMI 25.2
[2024-05-13] MEDS: ACETAMINOPHEN 325 MG TABLET 650 MG PO (02:40)
[2024-05-13] MEDS: LEVOTHYROXINE SODIUM 100 MCG TABLET 200 MCG PO (05:11)
[2024-05-13] MEDS: SENNA TABLET 1 TAB PO (08:02)
[2024-05-13] MEDS: carVEDILOL 3.125 MG TABLET 6.25 MG PO (08:02)
[2024-05-13] MEDS: TAMSULOSIN HCL 0.4 MG CAPSULE PO (08:02)
[2024-05-13] MEDS: PANTOPRAZOLE INJ 40 MG VIAL IVP (08:03)
[2024-05-13] MEDS: cefTRIAXone/D5w 2gm 2 GM/50 ML BAG IV (08:12)
[2024-05-13 08:22] LABS: Basophils % (Auto) 0 % (0-2.5); Eosinophils # (Auto) 0.6 Thou/mm3 (0.0-0.5); Eosinophils % (Auto) 9 % (0-10); Hematocrit 28.8 % (41.0-53.0); Hemoglobin 9.7 g/dL (13.5-16.0); Immature Granulocytes % (Auto) 0 % (0-0); Immature Granulocytes Auto 0.02 Thou/mm3 (0.00-0.00); Lymphocytes # (Auto) 1.3 Thou/mm3 (1.0-4.8); Lymphocytes % (Auto) 19 % (10-50); Mean Corpuscular HGB Conc 33.7 g/dl (31.0-37.0); Mean Corpuscular Hemoglobin 29.1 pg (25.0-35.0); Mean Corpuscular Volume 87 fL (80-100); Monocytes # (Auto) 0.5 Thou/mm3 (0.0-0.8); Monocytes % (Auto) 7 % (0-12); Neutrophils # (Auto) 4.4 Thou/mm3 (1.8-7.7); Neutrophils % (Auto) 65 % (37-80); Nucleated Red Blood Cell % 0 /100 WBC (0); Platelet Count 181 Thou/mm3 (140-440); RDW Standard Deviation 48.1 fL (35.1-43.9); Red Blood Count 3.33 Miln/mm3 (4.50-5.90); White Blood Count 6.7 Thou/mm3 (3.8-10.6)
[2024-05-13 09:00] LABS: Alanine Aminotransferase 13 U/L (10-49); Albumin, Serum 2.6 gm/dL (3.4-4.8); Alkaline Phosphatase 109 U/L (46-116); Anion Gap 9 (7-16); Aspartate Amino Transferase 10 U/L (0-34); BUN/Creatinine Ratio 20 Ratio (12-20); Bilirubin,Total 0.5 mg/dL (0.3-1.2); Blood Urea Nitrogen 59 mg/dL (9-23); Calcium 7.8 mg/dL (8.3-10.6); Calcium (Corrected) 8.9 mg/dL (8.5-10.1); Carbon Dioxide 25.4 mMol/L (20.0-31.0); Chloride 105 mMol/L (98-107); Creatinine (Component) 2.9 mg/dL (0.6-1.3); Estimated Creatinine Clearance 19.7 mL/min (>60); Globulin 2.5 gm/dL (2.3-3.5); Glucose 111 mg/dL (74-106); Osmolality,Calculated 295 (275-295); Potassium 3.6 mMol/L (3.4-5.1); Sodium 139 mMol/L (136-145); Total Protein 5.1 gm/dL (5.7-8.2); eGFR 20 See Note
--- NOTE | 2024-05-13 09:28 | PC.SS ---
Update: Plan is for the patient to obtain colonoscopy today.
--- NOTE | 2024-05-13 13:30 | ESPR_ITS ---
Documentation for date of: 05/13/24 Subjective Subjective Interval history: Patient was seen and examined at bedside. No acute overnight events. Denies any complaints and continued to take GoLytely for colonoscopy Vitals are stable. Labs showed sodium 139, potassium 3.6, BUN 59, creatinine 2.9 Creatinine started to trend down, will continue to monitor renal functions for now Exam Vital Signs Temp Pulse Resp BP Pulse Ox O2 Del Method O2 Flow Rate 96.9 F 60 18 157/75 H 98 Room Air 3 05/13/24 12:00 05/13/24 12:00 05/13/24 12:00 05/13/24 12:00 05/13/24 12:00 05/13/24 12:00 05/13/24 12:00 Narrative Exam General: Awake. HEENT: Normocephalic, atraumatic, mucous membranes moist. Heart: Regular rate and rhythm, no murmurs. Lungs: Clear to auscultation with no wheezing or crackles. Abdomen: Soft, nondistended, nontender, positive bowel sounds. ?No guarding or rebound tenderness. Neurologic: Alert and oriented x3, no gross neurological deficit, and patient able to move all 4 extremities. Extremities: No edema. Skin: No rash or ecchymoses. Objective Labs 05/13/24 07:38 05/13/24 07:38 Labs: Laboratory Results - last 24 hr 05/13/24 07:38 WBC 6.7 RBC 3.33 L Hgb 9.7 L Hct 28.8 L MCV 87 MCH 29.1 MCHC 33.7 RDW Std Deviation 48.1 H Plt Count 181 Neut % (Auto) 65 Lymph % (Auto) 19 [place] % (Auto) 7 Eos % (Auto) 9 Baso % (Auto) 0 Neut # (Auto) 4.4 Lymph # (Auto) 1.3 [place] # (Auto) 0.5 Eos # (Auto) 0.6 H Baso # (Auto) 0.0 Immature Gran # (Auto) 0.02 H Absolute Nucleated RBC 0.00 Immature Gran % 0 Nucleated RBC % 0 Sodium 139 Potassium 3.6 D Chloride 105 Carbon Dioxide 25.4 Anion Gap 9 BUN 59 H Creatinine 2.9 H Estim Creat Clear Calc 19.7 L eGFR 20 L BUN/Creatinine Ratio 20 Glucose 111 H Calculated Osmolality 295 Calcium 7.8 L Corrected Calcium 8.9 Total Bilirubin 0.5 AST 10 ALT 13 Alkaline Phosphatase 109 Total Protein 5.1 L Albumin 2.6 L Globulin 2.5 Albumin/Globulin Ratio 1.0 L Quality Measures Quality Measures none Advance care planning discussed with:: patient Assessment & Plan Assessment Current Active Medications: Generic Name Dose Route Start Last Admin Trade Name Freq PRN Reason Stop Dose Admin Acetaminophen 650 mg 05/09/24 20:33 Acetaminophen 325 Mg Tablet PO 06/08/24 20:32 Q6H PRN Fever >101.5 Acetaminophen 650 mg 05/09/24 20:33 05/13/24 02:40 Acetaminophen 325 Mg Tablet PO 06/08/24 20:32 650 mg Q6H PRN Administration PAIN SCALE 1-3 (mild Carvedilol 6.25 mg 05/11/24 08:00 05/13/24 08:02 Carvedilol 3.125 Mg Tablet PO 06/10/24 07:59 6.25 mg BIDWM TANGELA Administration Dextrose 25 ml 05/09/24 20:26 Dextrose 50%-Water Inj 50 Ml Syringe IV 06/08/24 20:25 Q15MIN PRN BG 50-70 responsive npo pt Dextrose 50 ml 05/09/24 20:26 Dextrose 50%-Water Inj 50 Ml Syringe IV 06/08/24 20:25 Q15MIN PRN BG <50 OR BG <70 & pt unresponsive Glucagon 1 mg 05/09/24 20:26 Glucagon Inj 1 Mg Vial IM Q15MIN PRN BG <70, and no IV access Ceftriaxone Sodium/Dextrose 2 gm in 50 mls @ 100 mls/hr 05/10/24 09:00 05/13/24 08:12 Rocephin/D5w 2gm IV 05/17/24 08:59 100 mls/hr QDAY TANGELA Administration Insulin Human Lispro 0 unit 05/13/24 00:30 05/13/24 12:02 Insulin Lispro (Admelog) 1 Unit/0.01 Ml Unit SC 06/12/24 00:29 Not Given Q6HR [facility] Protocol Levothyroxine Sodium 200 mcg 05/11/24 06:00 05/13/24 05:11 Levothyroxine Sodium 100 Mcg Tablet PO 06/10/24 05:59 200 mcg ACBR TANGELA Administration Ondansetron HCl 4 mg 05/09/24 20:33 Ondansetron Inj 2 Mg/Ml Inj 2 Ml IV 06/08/24 20:32 Q6H PRN NAUSEA OR VOMITING Protocol Pantoprazole Sodium 40 mg 05/14/24 09:00 Pantoprazole 40 Mg Tablet PO 06/13/24 08:59 QDAY [facility] Sennosides 1 tab 05/11/24 09:00 05/13/24 08:02 Senna Tablet PO 06/10/24 08:59 1 tab QDAY [facility] Administration Protocol Tamsulosin HCl 0.4 mg 05/10/24 09:00 05/13/24 08:02 Tamsulosin Hcl 0.4 Mg Capsule PO 06/09/24 08:59 0.4 mg QDAY [facility] Administration Plan A 89-year-old male patient with past medical history of hypertension, BPH, HFpEF, melanoma, hypothyroidism, A-fib with RVR, urinary incontinence due to acute illness, diabetes mellitus type 2 was brought to the ED by his daughter after she noticed that the patient was weak and confused and admitted for sepsis secondary to UTI. 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, stage IIIb, resolving Likely prerenal VS ATN in the setting of sepsis secondary to UTI Underlying type 2 diabetes mellitus -Patient was brought to the hospital with the complaints of fever and confusion -Vitals showed blood pressure 128/71, pulse rate 122, respiratory rate 26, temperature 102.5 ?F -Labs done at the time of admission showed sodium 131, potassium 6.0, CO2 17.1, anion gap of 15, BUN of 69, serum creatinine 2.6, glucose of 248, lactic acid 5.5 -His baseline serum creatinine is 1.6-2 since 2023 -Abdominal ultrasound showed moderate bilateral renal parenchymal scarring with mild bilateral hydronephrosis -Patient has history of BPH and is on ? Tamsulosin -On 05/12/2024, BUN 71, creatinine 3.2 > 3/10, BUN 59, Creat 2.9 Plan -Patient is currently on GoLytely for colonoscopy preparations, educated on fluid intake -Continue to monitor renal functions for now, as the urine output seems to be adequate -Avoid nephrotoxic medication and renally dose medications -Continue antibiotics for UTI #Anemia Likely multifactorial-Eliquis, anemia of chronic kidney disease, iron deficiency, GI bleed -Patient found to be anemic since 2021 -Patient is found to be iron deficient in 2023, and on iron supplements -Hemoglobin at the time of admission is 8.7 Plan -Eliquis is held -Monitor CBC -Endoscopy done showed gastritis with congestion -Colonoscopy is pending # History of hypertension -Blood pressures are ranging from 130-150/70-80 during this hospital admission Plan -Avoid MIMI inhibitor/ARB's for now -Continue carvedilol . Titrate dose based on blood pressures and heart rate -Continue to monitor blood pressures #Severe sepsis secondary to UTI #Gram-negative bacteremia #Lactic acidosis secondary to sepsis #History of BPH #Suspicion for Upper GI Bleed #Non-insulin dependent type 2 diabetes mellitus #Hypothyroidism #History of A-fib with RVR #History of HFpEF #History of hypertension #History of melanoma on steroid Rest of the medical conditions to be treated as per primary team Thank you for allowing us to involved in the care of the patient with Patient plan of care was discussed with the attending physician, Dr. Gregory Toure, PGY1 Attending Provider Attestation/Addendum Patient seen and examined with resident physician Dr. Austin. Note reviewed, agree with findings and recommendations. Patient clinically seems to be doing better. Continue with fluids. Good urine output. Suspect ATN. Probably in the diuretic phase of ATN. Creatinine should improve in the next 1 to 2 days.
--- NOTE | 2024-05-13 13:44 | ESPR_ITS ---
<Statement entered by Jade Biswas MD - 05/14/24 08:11> Patient was seen and examined by me personally. I have directly supervised and reviewed documentation by the team resident and agree with its findings with any exceptions or additional findings as below. Plan of care was discussed with the attending, Dr. Malin. Patient seen this morning, doing well. He is continuing to drink Golytely in preparation for colonoscopy. Hemoglobin is stable. Jade Biswas, PGY-2 Documentation for date of: 05/13/24 Subjective Subjective Interval history: 05/13/2024: No acute overnight events to report. Patient seen and examined in hospital bed does not report any concerning symptoms such as chest pain, shortness of breath or abdominal pain. Patient was initially scheduled to get a colonoscopy on 05/12; however, due to the fact that bowel movements were clear colonoscopy was pushed for today 05/13. Patient's kidney function is improving; moreover, patient likely has ATN as FENa is 11%. Will continue to monitor patient for any acute changes and will restart Eliquis once the patient has been cleared for no GI bleed. Patient continues to be treated with IV antibiotics but will transition to p.o. on discharge. Patient will be discharged within the next 24 to 48 hours with home health. Exam Vital Signs Temp Pulse Resp BP Pulse Ox O2 Del Method O2 Flow Rate 96.9 F 60 18 157/75 H 98 Room Air 3 05/13/24 12:00 05/13/24 12:00 05/13/24 12:00 05/13/24 12:00 05/13/24 12:00 05/13/24 12:05/13/24 12:00 Narrative Exam Physical Exam General: Elderly male, awake and in no acute distress. Conversational and non- toxic appearing. HEENT: Normocephalic, atraumatic, mucous membranes moist. Heart: Regular rate and rhythm, no murmurs. Lungs: Clear to auscultation with no wheezing or crackles. Abdomen: Soft, nondistended, nontender, positive bowel sounds. ?No guarding or rebound tenderness. Neurologic: Alert and oriented x3, no gross neurological deficit, and patient able to move all 4 extremities. Extremities: No edema. Skin: No rash or ecchymoses. Objective Labs 05/13/24 07:38 05/13/24 07:38 Labs: Laboratory Results - last 24 hr 05/13/24 07:38 WBC 6.7 RBC 3.33 L Hgb 9.7 L Hct 28.8 L MCV 87 MCH 29.1 MCHC 33.7 RDW Std Deviation 48.1 H Plt Count 181 Neut % (Auto) 65 Lymph % (Auto) 19 [place] % (Auto) 7 Eos % (Auto) 9 Baso % (Auto) 0 Neut # (Auto) 4.4 Lymph # (Auto) 1.3 [place] # (Auto) 0.5 Eos # (Auto) 0.6 H Baso # (Auto) 0.0 Immature Gran # (Auto) 0.02 H Absolute Nucleated RBC 0.00 Immature Gran % 0 Nucleated RBC % 0 Sodium 139 Potassium 3.6 D Chloride 105 Carbon Dioxide 25.4 Anion Gap 9 BUN 59 H Creatinine 2.9 H Estim Creat Clear Calc 19.7 L eGFR 20 L BUN/Creatinine Ratio 20 Glucose 111 H Calculated Osmolality 295 Calcium 7.8 L Corrected Calcium 8.9 Total Bilirubin 0.5 AST 10 ALT 13 Alkaline Phosphatase 109 Total Protein 5.1 L Albumin 2.6 L Globulin 2.5 Albumin/Globulin Ratio 1.0 L Quality Measures Quality Measures none Advance care planning discussed with:: patient Assessment & Plan Assessment Current Active Medications: Generic Name Dose Route Start Last Admin Trade Name Freq PRN Reason Stop Dose Admin Acetaminophen 650 mg 05/09/24 20:33 Acetaminophen 325 Mg Tablet PO 06/08/24 20:32 Q6H PRN Fever >101.5 Acetaminophen 650 mg 05/09/24 20:33 05/13/24 02:40 Acetaminophen 325 Mg Tablet PO 06/08/24 20:32 650 mg Q6H PRN Administration PAIN SCALE 1-3 (mild Carvedilol 6.25 mg 05/11/24 08:00 05/13/24 08:02 Carvedilol 3.125 Mg Tablet PO 06/10/24 07:59 6.25 mg BIDWM TANGELA Administration Dextrose 25 ml 05/09/24 20:26 Dextrose 50%-Water Inj 50 Ml Syringe IV 06/08/24 20:25 Q15MIN PRN BG 50-70 responsive npo pt Dextrose 50 ml 05/09/24 20:26 Dextrose 50%-Water Inj 50 Ml Syringe IV 06/08/24 20:25 Q15MIN PRN BG <50 OR BG <70 & pt unresponsive Glucagon 1 mg 05/09/24 20:26 Glucagon Inj 1 Mg Vial IM Q15MIN PRN BG <70, and no IV access Ceftriaxone Sodium/Dextrose 2 gm in 50 mls @ 100 mls/hr 05/10/24 09:00 05/13/24 08:12 Rocephin/D5w 2gm IV 05/17/24 08:59 100 mls/hr QDAY TANGELA Administration Insulin Human Lispro 0 unit 05/13/24 00:30 05/13/24 12:02 Insulin Lispro (Admelog) 1 Unit/0.01 Ml Unit SC 06/12/24 00:29 Not Given Q6HR TANGELA Protocol Levothyroxine Sodium 200 mcg 05/11/24 06:00 05/13/24 05:11 Levothyroxine Sodium 100 Mcg Tablet PO 06/10/24 05:59 200 mcg ACBR TANGELA Administration Ondansetron HCl 4 mg 05/09/24 20:33 Ondansetron Inj 2 Mg/Ml Inj 2 Ml IV 06/08/24 20:32 Q6H PRN NAUSEA OR VOMITING Protocol Pantoprazole Sodium 40 mg 05/14/24 09:00 Pantoprazole 40 Mg Tablet PO 06/13/24 08:59 QDAY TANGELA Sennosides 1 tab 05/11/24 09:00 05/13/24 08:02 Senna Tablet PO 06/10/24 08:59 1 tab QDAY TANGELA Administration Protocol Tamsulosin HCl 0.4 mg 05/10/24 09:00 05/13/24 08:02 Tamsulosin Hcl 0.4 Mg Capsule PO 06/09/24 08:59 0.4 mg QDAY TANGELA Administration Plan 89-year-old male patient with past medical history of hypertension, BPH, HFpEF, melanoma, hypothyroidism, A-fib with RVR, diabetes mellitus type 2 was brought to the ED by his daughter after she noticed that the patient was weak and confused. Patient was admitted for treatment of severe sepsis secondary to UTI; suspicion for upper GI bleed pending EGD and LUIS on CKD. #Gram-negative bacteremia #Severe sepsis secondary to UTI, resolved #Lactic acidosis secondary to sepsis, resolved #History of BPH At the ED patient was noticed to have body temperature of 102.5, pulse rate of 122, respiratory rate of 26. He is saturating well on room air . CBC showed WBC of 22.5, hemoglobin of 8.7, CO2 17.1, anion gap of 15, BUN of 69, serum creatinine 2.6 his baseline serum creatinine is 1.6, lactic acid 5.5, procalcitonin 34.55 urinalysis was positive for WBCs 45 on high-power field, positive bacteria 3. Patient was given a liter of fluids in the ED due to the concern of his HFpEF and was given 1 dose of Rocephin in addition to his Tylenol On review of the patient's chart we noted that the patient is using tamsulosin for his benign prostatic hyperplasia Abdominal U/S shows: No signs of cholelithiasis, negative for cholecystitis, mild hepatomegaly fatty liver, mild bilateral hydronephrosis, moderate bilateral renal parenchymal scar formation and mild splenomegaly Edema surrounding the left kidney noted. Urine culture shows jackson-sensitive E. coli Blood culture grew jackson-sensitive E. coli Plan: Continue Rocephin to 2 g daily, will transition to p.o. antibiotics on discharge Underwood's catheter in Continue home medication tamsulosin 0.4 mg p.o. daily #Acute blood loss anemia #Suspicion for GI Bleed Patient's daughter reported that she noticed that her father has some episodes of black tarry stool. 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 Do consulted, appreciate recommendations [facility] prep for colonoscopy today 05/13 IV protonix changed to 40 mg BID #LUIS on CKD stage IIIb #Acute tubular necrosis Patient's creatinine uptrending from 2.6-3.0 Patient does have good urine output, nearly 2.7 L as noted in chart Baseline creatinine is between 1.5 and 1.7 Suspicion for possible cardiorenal syndrome (patient received 3 L IV fluids per sepsis protocol and 2 PRBCs overnight), as result patient was given x 1 dose of Lasix 40 mg IV FENa 11% per urine sodium and creatinine ordered Plan: Consulted nephrology, Dr. Jenkins, appreciate recommendations Follow-up on renal panel Avoid nephrotoxic agents #Non-insulin dependent type 2 diabetes mellitus Patient on metformin, pending official med rec A1c of 6.4 Plan: SSI #Hypothyroidism Home medication levothyroxine TSH of 0.03 Free T4 of 1.29 Plan: Continue home dose levothyroxine #History of A-fib with RVR CHADVASc score of 4 Pending med rec Plan: Holding apixaban/anticoagulation at this time until we rule out GI bleed as the patient has black tarry stool #History of HFpEF #History of hypertension Last ECHO from 12/27 showed: normal LV size, LV function mildly reduced with an EF of around 40 to 45%. Diastolic dysfunction stage I. Normal RV size and function. Mild TR Moderate MR. Mild aortic valve sclerosis without stenosis trace AI In no acute exacerbation at this time Normotensive Plan: Continue home Coreg 6.25mg BID Holding home valsartan and resume when appropriate #History of melanoma on steroid As per the daughter the patient has melanoma in which he received some chemotherapy that resulted on has chronic diarrhea for that reason he was prescribed prednisone to decrease his diarrhea side effect Plan: Resume home medications upon med reconciliation Hospital Management: Diet: Renal diet with carb consistent Lines: PIV, Underwood Bowel: Senna DVT prophylaxis: SCD until rule out GI bleed GI prophylaxis: Protonix Dispo: IV antibiotics for sepsis 2/2 uti and bacteremia and suspcion for GI bleed; consulted GI Code status: DNR Patient seen and assessed with attending Dr. Malin and senior resident Dr. Zulay Vences, PGY-1 Attending Provider Attestation/Addendum I have examined the patient, reviewed labs and imaging findings, discussed the case with the resident(s), and reviewed entered orders. I agree with the plan of care as outlined in this note, with these additional summaries/recommendations: Patient seen at bedside. No acute overnight events. Patient S/P EGD 05/11/24 which revealed normal esophagus, gastritis, and no source of GI bleed identified. Patient started on GoLytely prep and will go for colonoscopy when cleared. Hemoglobin stable at 9.7 today, patient did receive PRBC transfusion days prior for low hemoglobin. We will continue IV antibiotics for E. coli urinary tract infection and E. coli bacteremia. Acute kidney injury improving. Nephrology following. Likely due to ATN as urine output is appropriate. Renally dose medications and avoid nephrotoxic agents. Patient has chronic atrial fibrillation and currently holding home Eliquis. Home coreg resumed. Continue insulin sliding scale for diabetes mellitus type 2. Continue home levothyroxine. Repeat hematology and chemistry panel in AM. Dr. Dea MD
--- NOTE | 2024-05-13 14:26 | PC.PT ---
Patient is currently drinking golytely pending a colonoscopy. Will hold PT treatment for today.
--- NOTE | 2024-05-13 20:32 | SUR.PHASEI ---
pt received from OR in recovery bay 5. pt asleep but responds to voice, breathing unlabored on 4l nc. v/s stable. report received from Bernadette Hernandez.
[2024-05-13] MEDS: hydrALAZINE INJ 20 MG/ML VIAL 10 MG IV (21:11)
--- NOTE | 2024-05-13 21:16 | SUR.PHASEI ---
pt able to tolerate oral fluids without difficulty swallowing or nasuea/vomiting.
--- NOTE | 2024-05-13 21:32 | SUR.PHASEI ---
pt awake and alert, breathing unlabored on room air. v/s stable. report called to Meli KOHLER. pt will be transferred to room at this time.
[2024-05-14] VITALS (9 sets, daily range): BP systolic 111–170; BP diastolic 73–92; PULSE 67–140; RESP 17–93; TEMP 36.2–36.6; O2SAT 96–99
--- NOTE | 2024-05-14 04:26 | EKG_ITS ---
[facility] Test Date: 2024-05-14 Pat Name: CHAITANYA HERNANDEZ Department: Room: S261A Gender: Male [employer]: ELISA : 1935 Requested By: Uvaldo Lancaster Order Number: [id number] Reading MD: Uvaldo Lancaster Measurements Intervals [place] Rate: 74 P: 39 NE: 219 QRS: -86 QRSD: 169 T: 17 QT: 460 QTc: 513 Interpretive Statements SINUS RHYTHM WITH FIRST DEGREE AV BLOCK WITH OCCASIONAL VENTRICULAR PREMATURE COMPLEXES MARKED LEFT AXIS DEVIATION RIGHT BUNDLE BRANCH BLOCK POSSIBLE ANTERIOR MYOCARDIAL INFARCTION , OF INDETERMINATE AGE Compared to ECG 05/09/2024 17:54:47 Ventricular premature complex(es) now present Left-axis deviation now present Myocardial infarct finding now present Sinus tachycardia no longer present Right-axis deviation no longer present /store/S0/[id number]
[2024-05-14] MEDS: LEVOTHYROXINE SODIUM 100 MCG TABLET 200 MCG PO (05:35)
[2024-05-14 06:10] LABS: Basophils % (Auto) 0 % (0-2.5); Eosinophils # (Auto) 0.5 Thou/mm3 (0.0-0.5); Eosinophils % (Auto) 6 % (0-10); Hematocrit 28.1 % (41.0-53.0); Hemoglobin 9.7 g/dL (13.5-16.0); Immature Granulocytes % (Auto) 1 % (0-0); Immature Granulocytes Auto 0.04 Thou/mm3 (0.00-0.00); Lymphocytes # (Auto) 1.7 Thou/mm3 (1.0-4.8); Lymphocytes % (Auto) 20 % (10-50); Mean Corpuscular HGB Conc 34.5 g/dl (31.0-37.0); Mean Corpuscular Hemoglobin 29.3 pg (25.0-35.0); Mean Corpuscular Volume 85 fL (80-100); Monocytes # (Auto) 0.7 Thou/mm3 (0.0-0.8); Monocytes % (Auto) 9 % (0-12); Neutrophils # (Auto) 5.5 Thou/mm3 (1.8-7.7); Neutrophils % (Auto) 65 % (37-80); Nucleated Red Blood Cell % 0 /100 WBC (0); Platelet Count 151 Thou/mm3 (140-440); RDW Standard Deviation 46.9 fL (35.1-43.9); Red Blood Count 3.31 Miln/mm3 (4.50-5.90); White Blood Count 8.4 Thou/mm3 (3.8-10.6)
[2024-05-14 06:52] LABS: Alanine Aminotransferase 10 U/L (10-49); Albumin, Serum 2.6 gm/dL (3.4-4.8); Albumin/Globulin Ratio 1.1 (1.2-2.2); Alkaline Phosphatase 113 U/L (46-116); Anion Gap 11 (7-16); Aspartate Amino Transferase < 10 U/L (0-34); BUN/Creatinine Ratio 16 Ratio (12-20); Bilirubin,Total 0.4 mg/dL (0.3-1.2); Blood Urea Nitrogen 44 mg/dL (9-23); Calcium 7.8 mg/dL (8.3-10.6); Calcium (Corrected) 8.9 mg/dL (8.5-10.1); Carbon Dioxide 24.3 mMol/L (20.0-31.0); Chloride 104 mMol/L (98-107); Creatinine (Component) 2.7 mg/dL (0.6-1.3); Estimated Creatinine Clearance 21.2 mL/min (>60); Globulin 2.4 gm/dL (2.3-3.5); Glucose 122 mg/dL (74-106); Osmolality,Calculated 289 (275-295); Potassium 3.6 mMol/L (3.4-5.1); Sodium 139 mMol/L (136-145); eGFR 22 See Note
--- NOTE | 2024-05-14 07:47 | PC.CM ---
Patient is opened to [facility]. If patient returns home he will need new home health orders.
[2024-05-14] MEDS: SENNA TABLET 1 TAB PO (08:07)
[2024-05-14] MEDS: carVEDILOL 3.125 MG TABLET 6.25 MG PO ×2 (08:08→16:52)
[2024-05-14] MEDS: TAMSULOSIN HCL 0.4 MG CAPSULE PO (08:09)
[2024-05-14] MEDS: PANTOPRAZOLE 40 MG TABLET PO (08:09)
[2024-05-14] MEDS: cefTRIAXone/D5w 2gm 2 GM/50 ML BAG IV (08:09)
[2024-05-14] MEDS: POTASSIUM CHLORIDE 20 mEq TABCR 40 MEQ PO (08:09)
--- NOTE | 2024-05-14 08:17 | PD.RESPRO ---
Documentation for date of: 05/14/24 Subjective Subjective Interval history: Patient was seen and examined with daughter at the bedside No acute overnight events. Denies any other complaints. Colonoscopy done yesterday showed Hemorrhoids and diverticulosis Labs showed downtrending Creatinine Recommended to discontinue holder catheter if there are no contraindications Exam Vital Signs Temp Pulse Resp BP Pulse Ox O2 Del Method O2 Flow Rate 97.1 F 76 17 140/75 H 98 Room Air 2 05/14/24 08:00 05/14/24 08:08 05/14/24 08:00 05/14/24 08:08 05/14/24 08:00 05/14/24 08:00 05/13/24 20:45 Narrative Exam General: Awake. HEENT: Normocephalic, atraumatic, mucous membranes moist. Heart: Irregular rate and rhythm, no murmurs. Lungs: Clear to auscultation with no wheezing or crackles. Abdomen: Soft, nondistended, nontender, positive bowel sounds. ?No guarding or rebound tenderness. Neurologic: Alert and oriented x3, no gross neurological deficit, and patient able to move all 4 extremities. Extremities: No edema. Skin: No rash or ecchymoses. Objective Labs 05/14/24 05:46 05/14/24 05:46 Labs: Laboratory Results - last 24 hr 05/13/24 05/14/24 07:38 05:46 WBC 6.7 8.4 RBC 3.33 L 3.31 L Hgb 9.7 L 9.7 L Hct 28.8 L 28.1 L MCV 87 85 MCH 29.1 29.3 MCHC 33.7 34.5 RDW Std Deviation 48.1 H 46.9 H Plt Count 181 151 D Neut % (Auto) 65 65 Lymph % (Auto) 19 20 [place] % (Auto) 7 9 Eos % (Auto) 9 6 Baso % (Auto) 0 0 Neut # (Auto) 4.4 5.5 Lymph # (Auto) 1.3 1.7 [place] # (Auto) 0.5 0.7 Eos # (Auto) 0.6 H 0.5 Baso # (Auto) 0.0 0.0 Immature Gran # (Auto) 0.02 H 0.04 H Absolute Nucleated RBC 0.00 0.00 Immature Gran % 0 1 H Nucleated RBC % 0 0 Sodium 139 139 Potassium 3.6 D 3.6 Chloride 105 104 Carbon Dioxide 25.4 24.3 Anion Gap 9 11 BUN 59 H 44 H Creatinine 2.9 H 2.7 H Estim Creat Clear Calc 19.7 L 21.2 L eGFR 20 L 22 L BUN/Creatinine Ratio 20 16 Glucose 111 H 122 H Calculated Osmolality 295 289 Calcium 7.8 L 7.8 L Corrected Calcium 8.9 8.9 Total Bilirubin 0.5 0.4 AST 10 < 10 ALT 13 10 Alkaline Phosphatase 109 113 Total Protein 5.1 L 5.0 L Albumin 2.6 L 2.6 L Globulin 2.5 2.4 Albumin/Globulin Ratio 1.0 L 1.1 L Quality Measures Quality Measures none Advance care planning discussed with:: patient and child Assessment & Plan Assessment Current Active Medications: Generic Name Dose Route Start Last Admin Trade Name Freq PRN Reason Stop Dose Admin Acetaminophen 650 mg 05/09/24 20:33 Acetaminophen 325 Mg Tablet PO 06/08/24 20:32 Q6H PRN Fever >101.5 Acetaminophen 650 mg 05/09/24 20:33 05/13/24 02:40 Acetaminophen 325 Mg Tablet PO 06/08/24 20:32 650 mg Q6H PRN Administration PAIN SCALE 1-3 (mild Carvedilol 6.25 mg 05/11/24 08:00 05/14/24 08:08 Carvedilol 3.125 Mg Tablet PO 06/10/24 07:59 6.25 mg BIDWM TANGELA Administration Dextrose 25 ml 05/09/24 20:26 Dextrose 50%-Water Inj 50 Ml Syringe IV 06/08/24 20:25 Q15MIN PRN BG 50-70 responsive npo pt Dextrose 50 ml 05/09/24 20:26 Dextrose 50%-Water Inj 50 Ml Syringe IV 06/08/24 20:25 Q15MIN PRN BG <50 OR BG <70 & pt unresponsive Glucagon 1 mg 05/09/24 20:26 Glucagon Inj 1 Mg Vial IM Q15MIN PRN BG <70, and no IV access Ceftriaxone Sodium/Dextrose 2 gm in 50 mls @ 100 mls/hr 05/10/24 09:00 05/14/24 08:09 Rocephin/D5w 2gm IV 05/17/24 08:59 100 mls/hr QDAY TANGELA Administration Insulin Human Lispro 0 unit 05/14/24 07:30 05/14/24 07:22 Insulin Lispro (Admelog) 1 Unit/0.01 Ml Unit SC 06/13/24 07:29 Not Given ACHS TANGELA Protocol Levothyroxine Sodium 200 mcg 05/11/24 06:00 05/14/24 05:35 Levothyroxine Sodium 100 Mcg Tablet PO 06/10/24 05:59 200 mcg ACBR TANGELA Administration Ondansetron HCl 4 mg 05/09/24 20:33 Ondansetron Inj 2 Mg/Ml Inj 2 Ml IV 06/08/24 20:32 Q6H PRN NAUSEA OR VOMITING Protocol Pantoprazole Sodium 40 mg 05/14/24 09:00 05/14/24 08:09 Pantoprazole 40 Mg Tablet PO 06/13/24 08:59 40 mg QDAY TANGELA Administration Sennosides 1 tab 05/11/24 09:00 05/14/24 08:07 Senna Tablet PO 06/10/24 08:59 1 tab QDAY TANGELA Administration Protocol Tamsulosin HCl 0.4 mg 05/10/24 09:00 05/14/24 08:09 Tamsulosin Hcl 0.4 Mg Capsule PO 06/09/24 08:59 0.4 mg QDAY TANGELA Administration Plan A 89-year-old male patient with past medical history of hypertension, BPH, HFpEF, melanoma, hypothyroidism, A-fib with RVR, urinary incontinence due to acute illness, diabetes mellitus type 2 was brought to the ED by his daughter after she noticed that the patient was weak and confused and admitted for sepsis secondary to UTI. 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, stage IIIb, resolving Likely prerenal VS ATN in the setting of sepsis secondary to UTI Underlying type 2 diabetes mellitus -Patient was brought to the hospital with the complaints of fever and confusion -Vitals showed blood pressure 128/71, pulse rate 122, respiratory rate 26, temperature 102.5 ?F -Labs done at the time of admission showed sodium 131, potassium 6.0, CO2 17.1, anion gap of 15, BUN of 69, serum creatinine 2.6, glucose of 248, lactic acid 5.5 -His baseline serum creatinine is 1.6-2 since 2023 -Abdominal ultrasound showed moderate bilateral renal parenchymal scarring with mild bilateral hydronephrosis -Patient has history of BPH and is on ? Tamsulosin -On 05/12/2024, BUN 71, creatinine 3.2 > 3/10, BUN 59, Creat 2.9 > 3/11, BUN 44, Creat 2.7 Plan -Continue to monitor renal functions for now, as the urine output seems to be adequate -Avoid nephrotoxic medication and renally dose medications -Continue antibiotics for UTI #Anemia Likely multifactorial-Eliquis, anemia of chronic kidney disease, iron deficiency, GI bleed -Patient found to be anemic since 2021 -Patient is found to be iron deficient in 2023, and on iron supplements -Hemoglobin at the time of admission is 8.7 Plan -Eliquis is held -Monitor CBC -Endoscopy done showed gastritis with congestion -Colonoscopy is pending # History of hypertension -Blood pressures are ranging from 130-150/70-80 during this hospital admission Plan -Avoid MIMI inhibitor/ARB's for now -Continue carvedilol . Titrate dose based on blood pressures and heart rate -Continue to monitor blood pressures #Severe sepsis secondary to UTI #Gram-negative bacteremia #Lactic acidosis secondary to sepsis #History of BPH #Suspicion for Upper GI Bleed #Non-insulin dependent type 2 diabetes mellitus #Hypothyroidism #History of A-fib with RVR #History of HFpEF #History of hypertension #History of melanoma on steroid Rest of the medical conditions to be treated as per primary team Thank you for allowing us to involved in the care of the patient with Patient plan of care was discussed with the attending physician, Dr. Gregory Toure, PGY1 Attending Provider Attestation/Addendum Patient seen and examined with resident physician Dr. Austin. Note reviewed, agree with findings and recommendations.
--- NOTE | 2024-05-14 13:49 | PC.PT ---
Patient is safe to sit at the EOB, sit in the chair at bedside, and ambulate in his room with the rollator walker and 1 staff assist for safety.
--- NOTE | 2024-05-14 14:30 | PC.SS ---
Rounding Note: Plan is for the patient to d/c home with home health.
--- NOTE | 2024-05-14 15:57 | ESPR_ITS ---
<Statement entered by Jade Biswas MD - 05/15/24 07:32> Patient was seen and examined by me personally. I have directly supervised and reviewed documentation by the team resident and agree with its findings with any exceptions or additional findings as below. Plan of care was discussed with the attending, Dr. Abdul. Jade Bisaws, PGY-2 Documentation for date of: 05/14/24 Subjective Subjective Interval history: 05/14/2024: No acute overnight events to report. Patient seen and examined in hospital and remains at current baseline without any reported chest pain, shortness of breath, abdominal pain or any new headaches/dizziness. Patient had a colonoscopy completed on 05/13/24 which showed hemorrhoids in the perianal exam, moderate diverticulosis in the sigmoid colon and descending colon but no evidence of diverticular bleed. Patient is pending discharge within the next 24 hours but is requiring 24-hour financial sales manager/home health services to be able to transport him. Exam Vital Signs Temp Pulse Resp BP Pulse Ox O2 Del Method O2 Flow Rate 97.8 F 88 17 150/77 H 99 Room Air 2 05/14/24 12:00 05/14/24 12:00 05/14/24 12:00 05/14/24 12:00 05/14/24 12:00 05/14/24 12:00 05/13/24 20:45 Narrative Exam Physical Exam General: Elderly male, awake and in no acute distress. Conversational and non- toxic appearing. HEENT: Normocephalic, atraumatic, mucous membranes moist. Heart: Regular rate and rhythm, no murmurs. Lungs: Clear to auscultation with no wheezing or crackles. Abdomen: Soft, nondistended, nontender, positive bowel sounds. ?No guarding or rebound tenderness. Neurologic: Alert and oriented x3, no gross neurological deficit, and patient able to move all 4 extremities. Extremities: No edema. Skin: No rash or ecchymoses. Objective Labs 05/14/24 05:46 05/14/24 05:46 Labs: Laboratory Results - last 24 hr 05/14/24 05:46 WBC 8.4 RBC 3.31 L Hgb 9.7 L Hct 28.1 L MCV 85 MCH 29.3 MCHC 34.5 RDW Std Deviation 46.9 H Plt Count 151 D Neut % (Auto) 65 Lymph % (Auto) 20 [place] % (Auto) 9 Eos % (Auto) 6 Baso % (Auto) 0 Neut # (Auto) 5.5 Lymph # (Auto) 1.7 [place] # (Auto) 0.7 Eos # (Auto) 0.5 Baso # (Auto) 0.0 Immature Gran # (Auto) 0.04 H Absolute Nucleated RBC 0.00 Immature Gran % 1 H Nucleated RBC % 0 Sodium 139 Potassium 3.6 Chloride 104 Carbon Dioxide 24.3 Anion Gap 11 BUN 44 H Creatinine 2.7 H Estim Creat Clear Calc 21.2 L eGFR 22 L BUN/Creatinine Ratio 16 Glucose 122 H Calculated Osmolality 289 Calcium 7.8 L Corrected Calcium 8.9 Total Bilirubin 0.4 AST < 10 ALT 10 Alkaline Phosphatase 113 Total Protein 5.0 L Albumin 2.6 L Globulin 2.4 Albumin/Globulin Ratio 1.1 L Quality Measures Quality Measures none Advance care planning discussed with:: patient Assessment & Plan Assessment Current Active Medications: Generic Name Dose Route Start Last Admin Trade Name Freq PRN Reason Stop Dose Admin Acetaminophen 650 mg 05/09/24 20:33 Acetaminophen 325 Mg Tablet PO 06/08/24 20:32 Q6H PRN Fever >101.5 Acetaminophen 650 mg 05/09/24 20:33 05/13/24 02:40 Acetaminophen 325 Mg Tablet PO 06/08/24 20:32 650 mg Q6H PRN Administration PAIN SCALE 1-3 (mild Carvedilol 6.25 mg 05/11/24 08:00 05/14/24 08:08 Carvedilol 3.125 Mg Tablet PO 06/10/24 07:59 6.25 mg BIDWM TANGELA Administration Dextrose 25 ml 05/09/24 20:26 Dextrose 50%-Water Inj 50 Ml Syringe IV 06/08/24 20:25 Q15MIN PRN BG 50-70 responsive npo pt Dextrose 50 ml 05/09/24 20:26 Dextrose 50%-Water Inj 50 Ml Syringe IV 06/08/24 20:25 Q15MIN PRN BG <50 OR BG <70 & pt unresponsive Glucagon 1 mg 05/09/24 20:26 Glucagon Inj 1 Mg Vial IM Q15MIN PRN BG <70, and no IV access Ceftriaxone Sodium/Dextrose 2 gm in 50 mls @ 100 mls/hr 05/10/24 09:00 05/14/24 08:09 Rocephin/D5w 2gm IV 05/17/24 08:59 100 mls/hr QDAY TANGELA Administration Insulin Human Lispro 0 unit 05/14/24 07:30 05/14/24 11:53 Insulin Lispro (Admelog) 1 Unit/0.01 Ml Unit SC 06/13/24 07:29 Not Given ACHS TANGELA Protocol Levothyroxine Sodium 200 mcg 05/11/24 06:00 05/14/24 05:35 Levothyroxine Sodium 100 Mcg Tablet PO 06/10/24 05:59 200 mcg ACBR TANGELA Administration Ondansetron HCl 4 mg 05/09/24 20:33 Ondansetron Inj 2 Mg/Ml Inj 2 Ml IV 06/08/24 20:32 Q6H PRN NAUSEA OR VOMITING Protocol Pantoprazole Sodium 40 mg 05/14/24 09:00 05/14/24 08:09 Pantoprazole 40 Mg Tablet PO 06/13/24 08:59 40 mg QDAY TANGELA Administration Sennosides 1 tab 05/11/24 09:00 05/14/24 08:07 Senna Tablet PO 06/10/24 08:59 1 tab QDAY TANGELA Administration Protocol Tamsulosin HCl 0.4 mg 05/10/24 09:00 05/14/24 08:09 Tamsulosin Hcl 0.4 Mg Capsule PO 06/09/24 08:59 0.4 mg QDAY TANGELA Administration Plan 89-year-old male patient with past medical history of hypertension, BPH, HFpEF, melanoma, hypothyroidism, A-fib with RVR, diabetes mellitus type 2 was brought to the ED by his daughter after she noticed that the patient was weak and confused. Patient was admitted for treatment of severe sepsis secondary to UTI; suspicion for upper GI bleed pending EGD and LUIS on CKD. #Gram-negative bacteremia #Severe sepsis secondary to UTI, resolved #Lactic acidosis secondary to sepsis, resolved #History of BPH At the ED patient was noticed to have body temperature of 102.5, pulse rate of 122, respiratory rate of 26. He is saturating well on room air . CBC showed WBC of 22.5, hemoglobin of 8.7, CO2 17.1, anion gap of 15, BUN of 69, serum creatinine 2.6 his baseline serum creatinine is 1.6, lactic acid 5.5, procalcitonin 34.55 urinalysis was positive for WBCs 45 on high-power field, positive bacteria 3. Patient was given a liter of fluids in the ED due to the concern of his HFpEF and was given 1 dose of Rocephin in addition to his Tylenol On review of the patient's chart we noted that the patient is using tamsulosin for his benign prostatic hyperplasia Abdominal U/S shows: No signs of cholelithiasis, negative for cholecystitis, mild hepatomegaly fatty liver, mild bilateral hydronephrosis, moderate bilateral renal parenchymal scar formation and mild splenomegaly Edema surrounding the left kidney noted. Urine culture shows jackson-sensitive E. coli Blood culture grew jackson-sensitive E. coli Plan: Continue Rocephin to 2 g daily, will transition to p.o. antibiotics on discharge Underwood's catheter removed Continue home medication tamsulosin 0.4 mg p.o. daily #Acute blood loss anemia #Suspicion for GI Bleed Patient's daughter reported that she noticed that her father has some episodes of black tarry stool. 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 Do consulted, appreciate recommendations IV protonix changed to 40 mg BID to transition to PO on discharge #LUIS on CKD stage IIIb #Acute tubular necrosis, improving Patient's creatinine uptrending from 2.6-3.0 Patient does have good urine output, nearly 2.7 L as noted in chart Baseline creatinine is between 1.5 and 1.7 Suspicion for possible cardiorenal syndrome (patient received 3 L IV fluids per sepsis protocol and 2 PRBCs overnight), as result patient was given x 1 dose of Lasix 40 mg IV FENa 11% per urine sodium and creatinine ordered Plan: Consulted nephrology, Dr. Jenkins, appreciate recommendations Follow-up on renal panel Avoid nephrotoxic agents #Non-insulin dependent type 2 diabetes mellitus Patient on metformin, pending official med rec A1c of 6.4 Plan: SSI #Hypothyroidism Home medication levothyroxine TSH of 0.03 Free T4 of 1.29 Plan: Continue home dose levothyroxine #History of A-fib with RVR CHADVASc score of 4 Pending med rec Plan: Restarted home Eliquis 2.5mg po BID #History of HFpEF #History of hypertension Last ECHO from 12/27 showed: normal LV size, LV function mildly reduced with an EF of around 40 to 45%. Diastolic dysfunction stage I. Normal RV size and function. Mild TR Moderate MR. Mild aortic valve sclerosis without stenosis trace AI In no acute exacerbation at this time Normotensive Plan: Continue home Coreg 6.25mg BID Holding home valsartan and resume when appropriate #History of melanoma on steroid As per the daughter the patient has melanoma in which he received some chemotherapy that resulted on has chronic diarrhea for that reason he was prescribed prednisone to decrease his diarrhea side effect Plan: Resume home medications upon med reconciliation Hospital Management: Diet: Renal diet with carb consistent Lines: PIV Bowel: Senna DVT prophylaxis: Eliquis GI prophylaxis: Protonix Dispo: IV antibiotics for sepsis 2/2 uti and bacteremia, improving Code status: DNR Patient seen and assessed with attending Dr. Abdul and senior resident Dr. Zulay Vences, PGY-1 Attending Provider Attestation/Addendum I reviewed labs, imaging, EKG, home medications and prior available records. Face to face evaluation was performed by me. I have personally examined the patient and discussed assessment and plan with the IM team. I reviewed the resident note and agree with the plan with exceptions as below. Generalized weakness Acute E. coli UTI GI bleed LUIS Atrial fibrillation Continue Keflex for UTI. Urine culture showed pansensitive E. coli Continue home care. Daughter cannot take care of the patient Status post EGD that showed gastritis and colonoscopy that showed hemorrhoids/diverticulitis. Discussed with GI: Okay to resume Eliquis. Monitor for bleed. Monitor H&H as outpatient Creatinine is downtrending. Discussed with nephrology: Likely intrinsic in the setting of UTI. Okay to discharge from nephrology standpoint. Monitor creatinine and follow-up as outpatient with nephrology Held metformin/valsartan. Monitor fingersticks and BP Time spent is 40 minutes. More than 50% of the time was spent on patient education and coordination of care.
[2024-05-14] MEDS: ACETAMINOPHEN 325 MG TABLET 650 MG PO (16:53)
[2024-05-14] MEDS: INSULIN LISPRO (AdmeLOG) 1 UNIT/0.01 ML UNIT SC (16:58)
--- NOTE | 2024-05-14 17:00 | PC.SS ---
SUPERVISOR PIPEL[employer] MAINTENANCE confirmed with patient's daughter, Tali; family will provide transportation on behalf of the patient at the time of discharge. Patient to d/c with home health. SUPERVISOR [employer]ELINE MAINTENANCE updated bedside nurse.
--- NOTE | 2024-05-15 07:46 | PC.CC ---
Addendum entered by Karen Grace RN 05/15/24 10:29: SOC is 05/16/24 Addendum entered by Karen Grace RN 05/15/24 08:16: Pt booked with [facility], pending SOC date Original Note: referral sent to [facility], pt is open to [facility], pending response
--- NOTE | 2024-05-15 07:49 | ESDS_ITS ---
Planned Discharge Date 05/14/24 DS: Providers Provider Date of admission: 05/09/24 20:33 Primary care physician: Physician No Primary/Family Admitting Provider: Juan Ramon Lopes MD Attending Provider on Admission: Paul Abdul MD Consults: 05/10/24 10:05 Referral Physical Therapy Routine Comment: Physician Instructions: 05/10/24 10:09 Consult to Gastroenterology Routine Comment: melena, low hemoglobin Consulting Provider: Leti Do 05/11/24 10:14 Consult to Nephrology Routine Comment: LUIS, prerenal vs. intrarenal; bacteremia present Consulting Provider: Lucy Jenkins Attending Provider on DC: Abebe Vences MD Discharging Provider: Abebe Vences MD DS: Diagnosis Problem List Completed Was Problem List Reviewed/Reconciled?: Yes Hospital Course Hospital Course Hospital course: Patient was a late discharge on 05/14/2024 89-year-old male with past medical history of hypertension, BPH, HFpEF, melanoma, hypothyroidism on 05/09/2024 with, atrial fibrillation, urinary continence, type 2 diabetes presented to the ED weakness and confusion. In the ED, patient was febrile with a temperature of 102.5, tachycardic, tachypneic but saturating well on room air. Lab findings included leukocytosis, acute kidney injury, lactic acidosis and procalcitonin was elevated. Urinalysis was positive for pyuria and bacteriuria the patient was admitted for sepsis secondary to UTI. During hospitalization, patient's blood cultures were also positive for gram- negative rods and eventually resulted in pansensitive E. coli which was both positive in the urine and the blood. Patient was started on IV antibiotics and made good improvement. During hospitalization there was some concern for GI bleed as the patient noted to have melena prior to admission. GI was consulted and completed an EGD on 05/11 which showed normal esophagus, gastritis with edema but source of anemia remained obscure. Patient then had a colonoscopy completed on 05/13 which showed hemorrhoids on perianal exam, moderate diverticulosis but no signs of active bleeding. Patient received a total of 2 units of packed red blood cells and hemoglobin remained stable afterwards. During hospitalization, nephrology was also consulted for the acute kidney injury which is most likely acute tubular necrosis but which improved on following days. Patient will be discharged from the hospital with the following strict instructions. Please take Augmentin 500-125 twice a day for four additional days for blood/urine infection Continue home Eliquis 2.5 mg twice a day Hold metformin and valsartan due to kidney stress. Resume after following up with Dr. Jenkins and PCP. Continue all other medications as prescribed Please follow-up with your PCP within 1-2 weeks after discharge Follow up with Dr. Jeknins the kidney doctor (Database Architect) who saw you in the hospital Please have your doctor order a renal panel If your symptoms worsen or if you develop new chest pain, shortness of breath, fever or chills - please come back to the ED immediately. 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 #Acute tubular necrosis, improving #Non-insulin dependent type 2 diabetes mellitus #Hypothyroidism #History of A-fib with RVR #History of HFpEF #History of hypertension #History of melanoma on steroid Abebe Vences, PGY-1 Status at Discharge Overall status at discharge: patient is progressing back to baseline Time Spent with Patient Time attestation: Total time spent providing and/or coordinating discharge services: 45 minutes Time spent: Greater than 30 minutes Home Health Home Health Referral Orders: 05/14/24 09:59 Home Health Referral Routine Reason For Exam: Home PT Home-Bound The patient must either because of illness or injury, need the aid of supportive devices such as crutches, canes, wheelchairs, and walkers; the use of special transportation; or the assistance of another person in order to leave their place of residence; OR have a condition such that leaving his or her home is medically contraindicated. In addition, the patient also meets the following criteria: patient is normally unable to leave the home and leaving home requires considerable taxing effort. Addendum to Home Health Certification Practitioner's Certification: I certify that the patient has been under my care in the hospital and the care of attending physician (see below). We had a fvnf-nw-[id number] encounter on (see date below). My clinical findings indicate that the patient is home bound per the above criteria and the Home Health Services noted in these orders are medically necessary. The primary reason for the [id number]-[id number] encounter is related to the fact that the patient requires home health services. 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 Wound Care: No IV Therapy: No RN Safety Evaluation: Yes RN to evaluate and create a plan of care that will produce positive outcomes. Palliative Treatment: No Palliative treatment and evaluate the need for hospice. Home Health Aide - Personal Care: Yes Home Health Aide to assist with any ADL's. Exam Vital Signs Temp Pulse Resp BP Pulse Ox O2 Del Method O2 Flow Rate 97.6 F 69 18 150/77 H 96 Room Air 2 05/14/24 15:59 05/14/24 16:52 05/14/24 15:59 05/14/24 16:52 05/14/24 15:59 05/14/24 15:59 05/13/24 20:45 Narrative Exam Physical Exam General: Elderly male, awake and in no acute distress. Conversational and non- toxic appearing. HEENT: Normocephalic, atraumatic, mucous membranes moist. Heart: Regular rate and rhythm, no murmurs. Lungs: Clear to auscultation with no wheezing or crackles. Abdomen: Soft, nondistended, nontender, positive bowel sounds. ?No guarding or r ebound tenderness. Neurologic: Alert and oriented x3, no gross neurological deficit, and patient able to move all 4 extremities. Extremities: No edema. Skin: No rash or ecchymoses. Discharge Plan Plan Patient Disposition: Home w/HOME HEALTH Patient condition on transfer: Stable Care Plan Goals: Please take Augmentin 500-125 twice a day for four additional days for blood/urine infection Continue home Eliquis 2.5 mg twice a day Hold metformin and valsartan due to kidney stress. Resume after following up with Dr. Jenkins and PCP. Continue all other medications as prescribed Please follow-up with your PCP within 1-2 weeks after discharge Follow up with Dr. Jenkins the kidney doctor (Database Architect) who saw you in the hospital Please have your doctor order a renal panel If your symptoms worsen or if you develop new chest pain, shortness of breath, fever or chills - please come back to the ED immediately. Prescriptions/Referrals Prescriptions/Med Rec: New amoxicillin-pot clavulanate [Augmentin] 500-125 mg tablet 1 tab PO BID 4 Days Qty: 8 0RF Continued levothyroxine [Synthroid] 175 MCG tablet 225 mcg PO QDAY Qty: 0 Docosahexanoic Acid/Epa (Fish Oil 1,000 Mg Softgel) 1 CAP capsule 1,400 mg PO DAILY Qty: 0 Eliquis 2.5 mg tablet 2.5 mg PO BID Patient Comments: TAKE 1 TABLET BY MOUTH TWICE A DAY atorvastatin 10 mg tablet 10 mg PO HS Patient Comments: TAKE 1 TABLET BY MOUTH EVERY DAY carvedilol 6.25 mg tablet 6.25 mg PO BID Patient Comments: TAKE 1 TABLET BY MOUTH TWICE A DAY Acidophilus Capsule 10 mg PO HS famotidine 20 mg tablet 20 mg PO DAILY Patient Comments: TAKE 1 TABLET BY MOUTH EVERY DAY omega 5-mhj-pqd-fish oil [Fish Oil] 1,000 (120-180) mg capsule 1 cap PO QDAY levothyroxine 200 mcg tablet 200 mcg PO .am Patient Comments: TAKE 1 TABLET BY MOUTH EVERY DAY ondansetron HCl 4 mg tablet 4 mg PO Q8H PRN (Reason: nausea and vomiting) tamsulosin 0.4 mg Capsule 0.4 mg PO DAILY fluticasone furoate 50 mcg/actuation Blister With Device 50 mcg INHALATION BID PRN (Reason: shortness of breath) acetaminophen [Tylenol] 325 mg Tablet 650 mg PO Q4H PRN (Reason: Pain) albuterol-budesonide 90-80 mcg/actuation HFA aerosol inhaler 2 inh inhalation BID PRN (Reason: shortness of breath) Qty: 10.7 0RF Held metformin 500 mg tablet 500 mg PO DAILY Hold Instructions: Resume on 05/21/24. Hold until follow up with PCP Patient Comments: TAKE 1 TABLET BY MOUTH EVERY DAY valsartan 40 mg tablet 40 mg PO DAILY Hold Instructions: Resume on 05/28/24. Hold until follow up with PCP and repeat renal panel Patient Comments: TAKE 1 TABLET BY MOUTH EVERY DAY metformin 1,000 mg Tablet 1,500 mg PO QDAY Hold Instructions: Resume on 05/21/24. Hold until follow up with PCP Discontinued prednisone 10 mg tablet 10 mg PO DAILY Patient Comments: TAKE 1 TABLET BY MOUTH EVERY DAY Referrals: No Primary/Family,Physician [Primary Care Provider] - Lucy Jenkins MD [Physician] - 05/21/24 Patient/Caregiver Discharge Instructions Education Materials: Urinary Tract Infections in Men, Acute Kidney Failure Dc Print Language: Faroese Stand Alone Forms: [employer] Award Info., Patient Portal Info Letter Discharge Order Discharge Orders: Discharge (Routine); Ordered 05/14/24 Ordered By: Jade Biswas Quality Discharge Quality Measures VTE prophylaxis
== END 2024-05-14 18:45 | disposition home health service (06) | DRG 871 ==
LOC: SERX 20:23 → SERHOLD 05-10 06:22 → S2NX 05-10 06:22
PROVIDERS: Nurse Practitioner Family; Specialist; Student in an Organized Health Care Education/Training Program; Admitting Provider Internal Medicine; Emergency Provider Student in an Organized Health Care Education/Training Program; Visit Provider Student in an Organized Health Care Education/Training Program
PROC: 0DJ08ZZ Inspection of Upper Intestinal Tract, Via Natural or Artificial Opening Endoscopic (ICD-10-PCS; CPT 43239; principal; 2024-05-11 15:45)
PROC: 0DJD8ZZ Inspection of Lower Intestinal Tract, Via Natural or Artificial Opening Endoscopic (ICD-10-PCS; CPT 45378; principal; 2024-05-13 18:30)
DX: A41.50 Gram-negative sepsis, unspecified (principal); K29.71 Gastritis, unspecified, with bleeding; N17.0 Acute kidney failure with tubular necrosis; I50.32 Chronic diastolic (congestive) heart failure; D62 Acute posthemorrhagic anemia; E87.20 Acidosis, unspecified; I13.0 Hypertensive heart and chronic kidney disease with heart failure and stage 1 through stage 4 chronic kidney disease, or unspecified chronic kidney disease; I48.20 Chronic atrial fibrillation, unspecified; N13.6 Pyonephrosis; K52.1 Toxic gastroenteritis and colitis; K64.9 Unspecified hemorrhoids; B96.20 Unspecified Escherichia coli [E. coli] as the cause of diseases classified elsewhere; N18.32 Chronic kidney disease, stage 3b; R65.20 Severe sepsis without septic shock; E03.9 Hypothyroidism, unspecified; K57.30 Diverticulosis of large intestine without perforation or abscess without bleeding; N40.1 Benign prostatic hyperplasia with lower urinary tract symptoms; E11.22 Type 2 diabetes mellitus with diabetic chronic kidney disease; R32 Unspecified urinary incontinence; C43.9 Malignant melanoma of skin, unspecified; D63.1 Anemia in chronic kidney disease; I35.8 Other nonrheumatic aortic valve disorders; E78.5 Hyperlipidemia, unspecified; E87.5 Hyperkalemia; Z60.2 Problems related to living alone; Z96.659 Presence of unspecified artificial knee joint; Z85.820 Personal history of malignant melanoma of skin; Z66 Do not resuscitate; Z79.01 Long term (current) use of anticoagulants; Z79.84 Long term (current) use of oral hypoglycemic drugs; Z87.01 Personal history of pneumonia (recurrent); Z87.891 Personal history of nicotine dependence; Z79.890 Hormone replacement therapy; T45.1X5A Adverse effect of antineoplastic and immunosuppressive drugs, initial encounter
CPT/HCPCS: 36415; 71045; 76700; 80048; 80053; 81001; 82570; 83036; 83605; 83735; 84100; 84145; 84300; 84439; 84443; 84484; 85014; 85018; 85025; 85610; 85730; 86850; 86900; 86901; 86923; 87040; 87077; 87086; 87186; 87400; 87502; 87811; 93005; 94762; 96365; 96368; 97162; 99285; J0131; J0360; J0613; J0696; J1200; J1815; J1940; J2250; J2470; J3010; J3475; J3490; J7030; J7040; J7050; P9016; A9270

== ENCOUNTER → 2024-05-09 | Outpatient (CLI) | payer MEDICARE, BC, SELFPAY ==
[2024-05-09 16:09] LABS: Collection Type, Urine Clean Catch; Squamous Epithelial Cell,Urine 0 /hpf (0-5)
[2024-05-09 17:45] LABS: Bacteria,Urine 4+; Bilirubin,Urine Negative (Negative); Blood,Urine 2+ (Negative); Clarity,Urine Clear (Clear/Hazy); Color,Urine Lt-Yellow (Lt Yel-Yel); Glucose, Urine Negative (Negative); Ketones,Urine Negative (Negative); Leukocyte Esterase,Urine Positive (Negative); Nitrite,Urine Positive (Negative); PH,Urine 5.5 (5.0-7.0); Protein,Urine Trace (Neg - Trace); RBC,Urine 1 /hpf (0-3); Specific Gravity,Urine 1.008 (1.001-1.035); Urobilinogen,Urine Negative mg/dL (0.0-1.0); WBC,Urine 79 /hpf (0-5)
[2024-05-09 17:48] LABS: Culture Indicated,Urine Yes
== END | disposition home or self-care (01) ==
PROVIDERS: PCP Internal Medicine; Referring Provider Internal Medicine; Visit Provider Internal Medicine
DX: Z87.440 Personal history of urinary (tract) infections (principal)
CPT/HCPCS: 81001; 87077; 87086; 87186

== ENCOUNTER → 2024-05-16 | Outpatient (CLI) | payer MEDICARE, BC, SELFPAY ==
[2024-05-16 12:24] LABS: Basophils % (Auto) 0 % (0-2.5); Eosinophils # (Auto) 0.5 Thou/mm3 (0.0-0.5); Eosinophils % (Auto) 7 % (0-10); Hematocrit 30.3 % (41.0-53.0); Immature Granulocytes % (Auto) 1 % (0-0); Immature Granulocytes Auto 0.04 Thou/mm3 (0.00-0.00); Lymphocytes # (Auto) 2.3 Thou/mm3 (1.0-4.8); Lymphocytes % (Auto) 31 % (10-50); Mean Corpuscular Hemoglobin 28.9 pg (25.0-35.0); Mean Corpuscular Volume 88 fL (80-100); Monocytes # (Auto) 0.6 Thou/mm3 (0.0-0.8); Monocytes % (Auto) 8 % (0-12); Neutrophils % (Auto) 54 % (37-80); Nucleated Red Blood Cell % 0 /100 WBC (0); Platelet Count 209 Thou/mm3 (140-440); RDW Standard Deviation 47.1 fL (35.1-43.9); Red Blood Count 3.46 Miln/mm3 (4.50-5.90); White Blood Count 7.4 Thou/mm3 (3.8-10.6)
[2024-05-16 14:42] LABS: Glucose Estimated Average 128 mg/dL (80-131); Hemoglobin A1C 6.1 % Hgb (4.8-6.0)
[2024-05-16 15:29] LABS: Alanine Aminotransferase 16 U/L (10-49); Albumin, Serum 3.2 gm/dL (3.4-4.8); Alkaline Phosphatase 125 U/L (46-116); Anion Gap 11 (7-16); Aspartate Amino Transferase 13 U/L (0-34); BUN/Creatinine Ratio 18 Ratio (12-20); Bilirubin,Direct 0.1 mg/dL (0.0-0.3); Bilirubin,Total 0.4 mg/dL (0.3-1.2); Blood Urea Nitrogen 44 mg/dL (9-23); Calcium 8.8 mg/dL (8.3-10.6); Carbon Dioxide 24.3 mMol/L (20.0-31.0); Cardiac Risk Estimate 6.3 RATIO (4.0-6.7); Chloride 104 mMol/L (98-107); Cholesterol 125 mg/dL (132-200); Creatinine (Component) 2.4 mg/dL (0.6-1.3); Glucose 84 mg/dL (74-106); HDL Cholesterol 20 mg/dL (40-60); LDL Cholesterol,Calculated 78 mg/dL (0-130); Osmolality,Calculated 287 (275-295); Phosphorous 3.3 mg/dL (2.4-5.1); Potassium 4.2 mMol/L (3.4-5.1); Sodium 139 mMol/L (136-145); Thyroid Stimulating Hormone 1.89 uIU/mL (0.55-4.78); Total Protein 6.2 gm/dL (5.7-8.2); Triglycerides 135 mg/dL (30-150); Vitamin B12 821 pg/mL (211-911); Vitamin D 25 Hydroxy Total 52.7 ng/mL (7.3-40.2); eGFR 25 See Note
== END | disposition home or self-care (01) ==
LOC: SLDO 11:44
PROVIDERS: PCP Internal Medicine; Referring Provider Internal Medicine; Visit Provider Internal Medicine
DX: I11.0 Hypertensive heart disease with heart failure (principal); E11.9 Type 2 diabetes mellitus without complications; E55.9 Vitamin D deficiency, unspecified; E03.9 Hypothyroidism, unspecified
CPT/HCPCS: 36415; 80048; 80061; 80076; 82306; 82607; 83036; 84100; 84439; 84443; 85025

== ENCOUNTER → 2024-06-06 | Outpatient (CLI) | payer MEDICARE, SELFPAY ==
[2024-06-06 17:02] LABS: Collection Type, Urine Clean Catch
[2024-06-06 18:00] LABS: Bacteria,Urine 4+; Bilirubin,Urine Negative (Negative); Blood,Urine 2+ (Negative); Glucose, Urine Negative (Negative); Ketones,Urine Negative (Negative); Leukocyte Esterase,Urine Positive (Negative); Nitrite,Urine Positive (Negative); PH,Urine 5.5 (5.0-7.0); Protein,Urine 1+ (Neg - Trace); RBC,Urine 35 /hpf (0-3); Squamous Epithelial Cell,Urine 3 /hpf (0-5); Urobilinogen,Urine Negative mg/dL (0.0-1.0); WBC,Urine 4147 /hpf (0-5)
[2024-06-06 18:01] LABS: Clarity,Urine Cloudy (Clear/Hazy); Color,Urine Lt-Yellow (Lt Yel-Yel); Culture Indicated,Urine Yes
== END | disposition home or self-care (01) ==
PROVIDERS: Referring Provider Internal Medicine; Visit Provider Internal Medicine
DX: N39.0 Urinary tract infection, site not specified (principal)
CPT/HCPCS: 81001; 87077; 87086; 87186

== ENCOUNTER → 2024-06-17 | Outpatient (CLI) | payer MEDICARE, BC, SELFPAY ==
[2024-06-17 09:37] LABS: Basophils % (Auto) 0 % (0-2.5); Eosinophils # (Auto) 0.3 Thou/mm3 (0.0-0.5); Eosinophils % (Auto) 3 % (0-10); Immature Granulocytes % (Auto) 1 % (0-0); Immature Granulocytes Auto 0.05 Thou/mm3 (0.00-0.00); Lymphocytes # (Auto) 2.7 Thou/mm3 (1.0-4.8); Lymphocytes % (Auto) 31 % (10-50); Mean Corpuscular HGB Conc 33.6 g/dl (31.0-37.0); Mean Corpuscular Hemoglobin 30.1 pg (25.0-35.0); Mean Corpuscular Volume 90 fL (80-100); Monocytes # (Auto) 0.6 Thou/mm3 (0.0-0.8); Monocytes % (Auto) 7 % (0-12); Neutrophils # (Auto) 4.9 Thou/mm3 (1.8-7.7); Neutrophils % (Auto) 58 % (37-80); Nucleated Red Blood Cell % 0 /100 WBC (0); Platelet Count 286 Thou/mm3 (140-440); RDW Standard Deviation 52.6 fL (35.1-43.9); Red Blood Count 2.79 Miln/mm3 (4.50-5.90); White Blood Count 8.5 Thou/mm3 (3.8-10.6)
[2024-06-17 09:42] LABS: Hemoglobin 8.4 g/dL (13.5-16.0)
[2024-06-17 09:51] LABS: Parathyroid Hormone Intact 44.1 pg/ml (18.5-88.0)
[2024-06-17 09:54] LABS: Vitamin D 25 Hydroxy Total 54.4 ng/mL (7.3-40.2)
[2024-06-17 09:55] LABS: Albumin, Serum 3.8 gm/dL (3.4-4.8); Anion Gap 8 (7-16); BUN/Creatinine Ratio 18 Ratio (12-20); Blood Urea Nitrogen 56 mg/dL (9-23); Calcium 9.1 mg/dL (8.3-10.6); Calcium (Corrected) 9.3 mg/dL (8.5-10.1); Carbon Dioxide 20.8 mMol/L (20.0-31.0); Chloride 106 mMol/L (98-107); Creatinine (Component) 3.1 mg/dL (0.6-1.3); Glucose 92 mg/dL (74-106); Osmolality,Calculated 285 (275-295); Phosphorous 5.2 mg/dL (2.4-5.1); Potassium 5.2 mMol/L (3.4-5.1); Sodium 135 mMol/L (136-145); eGFR 19 See Note
[2024-06-17 12:50] LABS: Collection Type, Urine Clean Catch; Squamous Epithelial Cell,Urine 0 /hpf (0-5)
[2024-06-17 14:13] LABS: Amorphous Crystals,Urine Present (Absent); Bacteria,Urine 3+; Bilirubin,Urine Negative (Negative); Blood,Urine 1+ (Negative); Glucose, Urine Negative (Negative); Ketones,Urine Negative (Negative); Leukocyte Esterase,Urine Positive (Negative); Nitrite,Urine Negative (Negative); PH,Urine 5.5 (5.0-7.0); Protein,Urine 1+ (Neg - Trace); RBC,Urine 18 /hpf (0-3); Specific Gravity,Urine 1.008 (1.001-1.035); Urobilinogen,Urine Negative mg/dL (0.0-1.0); WBC,Urine 1911 /hpf (0-5)
[2024-06-17 14:15] LABS: Clarity,Urine Turbid (Clear/Hazy); Color,Urine Yellow (Lt Yel-Yel); Culture Indicated,Urine Yes
[2024-06-17 15:02] LABS: Creatinine MALB Rnd Ur 31 mg/dL (30-125); Microalbumin Creat Ratio 35 mg/gCrea (<30); Microalbumin, Random Urine 11 mg/L (0-300)
== END | disposition home or self-care (01) ==
LOC: COPL 08:30
PROVIDERS: PCP Internal Medicine; Referring Provider Internal Medicine; Visit Provider Internal Medicine
DX: I10 Essential (primary) hypertension (principal); E78.5 Hyperlipidemia, unspecified; E55.9 Vitamin D deficiency, unspecified
CPT/HCPCS: 36415; 80069; 81001; 82043; 82306; 82570; 83970; 85025; 87077; 87086; 87186

== ENCOUNTER 2024-06-30 13:59 | Emergency (ER) | payer MEDICARE, BC, SELFPAY ==
[2024-06-30 14:09] VITALS: BP 128/62; PULSE 104; RESP 24; TEMP 36.3; O2SAT 100
--- NOTE | 2024-06-30 14:09 | EKG_ITS ---
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1935 Requested By: Hernandez Baig Order Number: [id number] Reading MD: Hernandez Baig Measurements Intervals [place] Rate: 101 P: NE: QRS: -67 QRSD: 121 T: 17 QT: 393 QTc: 511 Interpretive Statements ATRIAL FIBRILLATION WITH RAPID VENTRICULAR RESPONSE LEFT AXIS DEVIATION [QRS AXIS < -30] RIGHT BUNDLE BRANCH BLOCK [120+ ms QRS DURATION, UPRIGHT V1, 40+ ms S IN I/aVL/V4/V5/V6] POSSIBLE ANTERIOR MYOCARDIAL INFARCTION , PROBABLY OLD [30 ms Q WAVE IN V3/V4, OR R < 0.2 mV IN V4] Compared to ECG 05/14/2024 05:08:42 Sinus rhythm no longer present Ventricular premature complex(es) no longer present First degree AV block no longer present Myocardial infarct finding still present /store/S0/[id number]/[id number].pdf
--- NOTE | 2024-06-30 14:09 | XR_ITS ---
Examination: AP chest single view TECHNIQUE: AP portable upright chest single view. Examination time: June 30, 2024 1425 hours Comparison May 09, 2024 INDICATIONS: Weakness today. FINDINGS: Mild prominence left ventricle Minor atelectasis left base Mild central vascular congestion. No lobar pneumonia or pulmonary edema Moderate osteopenia IMPRESSION: Mild central vascular congestion
--- NOTE | 2024-06-30 14:10 | EDNOTE_ITS ---
<Statement entered by Liseth Randall MD - 07/01/24 14:42> As co-signing physician, I was present and available for consult prn. I concur with the plan and care as documented by the midlevel provider. ED General RME/HPI General Chief complaint: Weakness Stated complaint: WEAKNESS Time Seen by Provider: 06/30/24 14:09 Arrival date/time: 06/30/24 13:59 CC: Generalized weakness with 1 episode of vomiting this morning. Patient is awake alert EMS reports stable blood pressure, the patient however is tachypneic and tachycardic. The patient has a history of A-fib and is on Eliquis. Patient also states the family is urging him to come in to be seen because he has had a you recurrent UTI , that he cannot get rid of . Currently patient denies chest pain difficulty breathing or shortness of breath. Related Data Home Medications ?Medication ?Instructions ?Recorded ?Confirmed Docosahexanoic Acid/Epa (Fish Oil 1,400 mg PO DAILY ## 0 05/14/13 05/13/24 1,000 Mg Softgel) levothyroxine 175 mcg tablet 225 mcg PO QDAY #0 tabs 0 05/14/13 05/13/24 (Synthroid) fluticasone furoate 50 50 mcg inhalation BID PRN 05/12/24 mcg/actuation blister powder for shortness of breath inhalation metformin 1,000 mg tablet 1,500 mg PO QDAY 01/04/24 Held on 05/14/24. Instructions: Resume on 05/21/24. Hold until follow up with PCP tamsulosin 0.4 mg capsule 0.4 mg PO DAILY 01/04/2412/28 acetaminophen 325 mg tablet 650 mg PO Q4H PRN Pain 06/2705/12/24 (Tylenol) Lactobacillus acidophilus 10 mg PO HS 05/12/24 5 (Acidophilus capsule) apixaban 2.5 mg tablet (Eliquis) 2.5 mg PO BID 5 05/12/24 atorvastatin 10 mg tablet 10 mg PO HS 05/12/24 5 carvedilol 6.25 mg tablet 6.25 mg PO BID 05/12/2411/28 famotidine 20 mg tablet 20 mg PO DAILY 05/12/2411/28 levothyroxine 200 mcg tablet 200 mcg PO .am 05/13/24 0 05/13/24 metformin 500 mg tablet 500 mg PO DAILY 05/13/2412/28 Held on 05/14/24. Instructions: Resume on 05/21/24. Hold until follow up with PCP omega 2-mcx-kux-fish oil 1,000 mg 1 cap PO QDAY 05/13/24 (120 mg-180 mg) capsule (Fish Oil) ondansetron HCl 4 mg tablet 4 mg PO Q8H PRN nausea and vomiting 05/13/24 05/13/24 valsartan 40 mg tablet 40 mg PO DAILY 05/13/2405/04 Held on 05/14/24. Instructions: Resume on 05/28/24. Hold until follow up with PCP and repeat renal panel Previous Rx's ?Medication ?Instructions ?Recorded albuterol 90 mcg-budesonide [address] N shortness 01/09/24 mcg/actuation HFA aerosol inhaler of breath #10.7 gram s Allergies Allergy/AdvReac Type Severity Reaction Status Date / Time bacitracin (From Neosporin Allergy Mild Redness of Verified 06/30/24 14:15 ([id number])) Skin neomycin (From Neosporin Allergy Mild Redness of Verified 06/30/24 14:15 ([id number])) Skin polymyxin B (From Neosporin Allergy Mild Redness of Verified 06/30/24 14:15 ([id number])) Skin Course Course Course Narrative: The patient's CKD is unchanged, the patient has a mild leukocytosis, without any base because the patient's family members are mostly concerned about this pe rsistent urinary tract infection based on the laboratory results today compared to the old ones show significant improvement. The patient has no urinary symptoms. After reviewing all the laboratory results the patient was able to easily wake up, ate food tolerated a conversation with family member at bedside. 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 I have no acute finding that requires emergent or immediate intervention. Quality Measures none Orders Category Date Time Status EKG (ED ONLY) *Do not use* NOW Care 06/30/24 14:09 Completed EKG (ED Only) Stat Exams 06/30/24 14:09 Draft XR chest 1V Stat Exams 06/30/24 14:09 Completed B-Type Natriuretic Peptide Stat Lab 06/30/24 14:34 Completed CBC Stat Lab 06/30/24 14:34 Completed Comprehensive Metabolic Panel Stat Lab 06/30/24 14:34 Completed Drug Screen,Urine Stat Lab 06/30/24 16:24 Completed LDH (Lactate Dehydrogenase) Stat Lab 06/30/24 14:34 Completed Magnesium Stat Lab 06/30/24 14:34 Completed Partial Thromboplastin Time Stat Lab 06/30/24 14:34 Completed Prothrombin Time with INR Stat Lab 06/30/24 14:34 Completed Troponin I Stat Lab 06/30/24 14:34 Completed Urinalysis Stat Lab 06/30/24 16:24 Completed Vital Signs Vital signs: Vital Signs Temperature 97.4 F 06/30/24 14:09 Pulse Rate 104 H 06/30/24 14:09 Respiratory Rate 24 H 06/30/24 14:09 Blood Pressure 128/62 06/30/24 14:09 Pulse Oximetry (%) 100 06/30/24 14:09 Oxygen Delivery Method Room Air 06/30/24 14:09 Discharge Plan Plan Patient Disposition: HOME (Self Care) Patient condition on transfer: Stable Prescriptions/Referrals Prescriptions/Med Rec: No Action levothyroxine [Synthroid] 175 MCG tablet 225 mcg PO QDAY Qty: 0 Docosahexanoic Acid/Epa (Fish Oil 1,000 Mg Softgel) 1 CAP capsule 1,400 mg PO DAILY Qty: 0 Eliquis 2.5 mg tablet 2.5 mg PO BID Patient Comments: TAKE 1 TABLET BY MOUTH TWICE A DAY atorvastatin 10 mg tablet 10 mg PO HS Patient Comments: TAKE 1 TABLET BY MOUTH EVERY DAY carvedilol 6.25 mg tablet 6.25 mg PO BID Patient Comments: TAKE 1 TABLET BY MOUTH TWICE A DAY Acidophilus Capsule 10 mg PO HS famotidine 20 mg tablet 20 mg PO DAILY Patient Comments: TAKE 1 TABLET BY MOUTH EVERY DAY omega 1-nlp-rzc-fish oil [Fish Oil] 1,000 (120-180) mg capsule 1 cap PO QDAY levothyroxine 200 mcg tablet 200 mcg PO .am Patient Comments: TAKE 1 TABLET BY MOUTH EVERY DAY metformin 500 mg tablet 500 mg PO DAILY Patient Comments: TAKE 1 TABLET BY MOUTH EVERY DAY valsartan 40 mg tablet 40 mg PO DAILY Patient Comments: TAKE 1 TABLET BY MOUTH EVERY DAY ondansetron HCl 4 mg tablet 4 mg PO Q8H PRN (Reason: nausea and vomiting) tamsulosin 0.4 mg Capsule 0.4 mg PO DAILY metformin 1,000 mg Tablet 1,500 mg PO QDAY fluticasone furoate 50 mcg/actuation Blister With Device 50 mcg INHALATION BID PRN (Reason: shortness of breath) acetaminophen [Tylenol] 325 mg Tablet 650 mg PO Q4H PRN (Reason: Pain) albuterol-budesonide 90-80 mcg/actuation HFA aerosol inhaler 2 inh inhalation BID PRN (Reason: shortness of breath) Qty: 10.7 0RF Referrals: Subhash Limon MD [Primary Care Provider] - In 1 week Problem List Clinical Impression: CKD (chronic kidney disease), Leukocytosis, Nausea & vomiting Patient/Caregiver Discharge Instructions Education Materials: Self-Care for Vomiting and Diarrhea Additional Instructions: If the patient spikes a fever nausea or vomiting return immediately to the emergency room for reevaluation. Follow-up closely with your primary care doctor, cardiology and nephrology. Print Language: Bolivian Stand Alone Forms: [employer] Award Info., Patient Portal Info Letter PA/SOFTWARE RELEASE ENGINEER Supervising Physician PA/SOFTWARE RELEASE ENGINEER Supervising Physician: Hernandez Carter ENP [facility] EKG EKG Interpretation(s): EKG performed at 1420 shows a ventricular rate of 101 QRS of 121 QTc of 451 this is A-fib with RVR left axis deviation. Labs Lab(s) Interpretation(s): CBC shows a mild leukocytosis of 14.9 H&H of 8.7 and 25.5 respectively with platelets at 190. Sodium of 130 potassium of 5.2 note this is unchanged from previous lab draws. Chloride at 101 CO2 at 17.4 gap of 12 BUN of 49 creatinine 2.7 note: These are also similar to previous blood draws. Glucose at 113. No transaminitis or T. bili elevation BNP of 328 Troponin is negative Urine shows 39 WBCs leukocyte esterase positive but no bacteria. UDS is negative Imaging Imaging Interpretation(s): Chest x-ray as interpreted by me read by radiologist shows mild vascular congestion.
[2024-06-30 14:18] VITALS: PULSE 104; RESP 24; O2SAT 97; BMI 23.8
[2024-06-30 15:25] LABS: Basophils % (Auto) 0 % (0-2.5); Eosinophils % (Auto) 0 % (0-10); Hematocrit 25.5 % (41.0-53.0); Immature Granulocytes % (Auto) 0 % (0-0); Immature Granulocytes Auto 0.06 Thou/mm3 (0.00-0.00); Lymphocytes # (Auto) 1.5 Thou/mm3 (1.0-4.8); Lymphocytes % (Auto) 10 % (10-50); Mean Corpuscular HGB Conc 34.1 g/dl (31.0-37.0); Mean Corpuscular Volume 91 fL (80-100); Monocytes # (Auto) 1.4 Thou/mm3 (0.0-0.8); Monocytes % (Auto) 10 % (0-12); Neutrophils # (Auto) 11.9 Thou/mm3 (1.8-7.7); Neutrophils % (Auto) 80 % (37-80); Nucleated Red Blood Cell % 0 /100 WBC (0); Platelet Count 190 Thou/mm3 (140-440); RDW Standard Deviation 55.6 fL (35.1-43.9); Red Blood Count 2.81 Miln/mm3 (4.50-5.90); White Blood Count 14.9 Thou/mm3 (3.8-10.6)
[2024-06-30 15:26] LABS: Hemoglobin 8.7 g/dL (13.5-16.0)
[2024-06-30 15:32] LABS: INR 1.1 (0.9-1.3); Partial Thromboplastin Time 35.6 Seconds (22.0-36.0); Prothrombin Time 11.9 Seconds (9.0-12.2)
[2024-06-30 15:39] LABS: Alanine Aminotransferase 12 U/L (10-49); Albumin, Serum 3.9 gm/dL (3.4-4.8); Albumin/Globulin Ratio 1.3 (1.2-2.2); Alkaline Phosphatase 109 U/L (46-116); Anion Gap 12 (7-16); Aspartate Amino Transferase 10 U/L (0-34); BUN/Creatinine Ratio 18 Ratio (12-20); Blood Urea Nitrogen 49 mg/dL (9-23); Calcium (Corrected) 9.1 mg/dL (8.5-10.1); Carbon Dioxide 17.4 mMol/L (20.0-31.0); Chloride 101 mMol/L (98-107); Creatinine (Component) 2.7 mg/dL (0.6-1.3); Estimated Creatinine Clearance 21.2 mL/min (>60); Glucose 113 mg/dL (74-106); LDH (Lactate Dehydrogenase) 146 U/L (120-246); Magnesium 1.8 mg/dL (1.6-2.6); Osmolality,Calculated 274 (275-295); Potassium 5.2 mMol/L (3.4-5.1); Sodium 130 mMol/L (136-145); Total Protein 6.9 gm/dL (5.7-8.2); Troponin I 0.027 ng/mL (0.0-0.045); eGFR 22 See Note
[2024-06-30 15:43] LABS: B-Type Natriuretic Peptide 328 pg/mL (0-100)
[2024-06-30 16:05] VITALS: BP 142/62; PULSE 99; RESP 18; TEMP 36.8; O2SAT 100
[2024-06-30 16:30] LABS: Collection Type, Urine Clean Catch
[2024-06-30 16:39] LABS: Bilirubin,Urine Negative (Negative); Blood,Urine Negative (Negative); Color,Urine Lt-Yellow (Lt Yel-Yel); Glucose, Urine Negative (Negative); Ketones,Urine Negative (Negative); Leukocyte Esterase,Urine Positive (Negative); Nitrite,Urine Negative (Negative); PH,Urine 6.5 (5.0-7.0); Protein,Urine Trace (Neg - Trace); RBC,Urine 4 /hpf (0-3); Specific Gravity,Urine 1.011 (1.001-1.035); Squamous Epithelial Cell,Urine < 1 /hpf (0-5); Urobilinogen,Urine Negative mg/dL (0.0-1.0); WBC,Urine 39 /hpf (0-5)
[2024-06-30 16:41] LABS: Clarity,Urine Hazy (Clear/Hazy)
[2024-06-30 16:45] LABS: Amphetamine/Methamp Scrn,U Negative (Negative); Barbiturate Screen,Urine Negative (Negative); Benzodiazepines Screen,Urine Negative (Negative); Benzoylecgonine Screen, Ur Negative (Negative); Fentanyl Screen,Urine Negative (Negative); Opiate Screen,Urine Negative (Negative); THC Screen,Urine Negative (Negative)
[2024-06-30 18:16] VITALS: BP 110/49; PULSE 85; RESP 18; TEMP 37.2; O2SAT 98
[2024-06-30 18:40] VITALS: BP 110/49; PULSE 82; RESP 20; O2SAT 99
== END 2024-06-30 18:42 | disposition home or self-care (01) ==
PROVIDERS: Registered Nurse General Practice; Emergency Provider Emergency Medicine; PCP Internal Medicine
DX: N18.9 Chronic kidney disease, unspecified (principal); D72.829 Elevated white blood cell count, unspecified; R11.2 Nausea with vomiting, unspecified; I48.91 Unspecified atrial fibrillation
CPT/HCPCS: 36415; 71045; 80053; 80307; 81001; 83615; 83735; 83880; 84484; 85025; 85610; 85730; 93005; 99283

== ENCOUNTER 2024-07-06 07:38 | Emergency (ER) | payer MEDICARE, BC, SELFPAY ==
[2024-07-06] VITALS (10 sets, daily range): BP systolic 130–155; BP diastolic 51–73; PULSE 64–100; RESP 18–32; TEMP 36.1–38.9; O2SAT 95–100; BMI 24.7
--- NOTE | 2024-07-06 07:46 | XR_ITS ---
Examination: AP chest single view TECHNIQUE: AP portable semiupright chest single view Examination diagnostic on July 06, 2024 0849 hours Comparison June 30, 2024 INDICATIONS: Fever weakness beginning 2 days ago. FINDINGS: Subsegmental atelectasis left base Minor prominence left ventricle Mild vascular congestion. No lobar pneumonia IMPRESSION: Mild vascular congestion No lobar pneumonia
--- NOTE | 2024-07-06 07:46 | EKG_ITS ---
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1935 Requested By: Raphael Oleary Order Number: [id number] Reading MD: Raphael Oleary Measurements Intervals [place] Rate: 89 P: -33 UT: 178 QRS: 269 QRSD: 128 T: -8 QT: 352 QTc: 429 Interpretive Statements SINUS RHYTHM RIGHT AXIS DEVIATION [QRS AXIS > 100] RIGHT BUNDLE BRANCH BLOCK [120+ ms QRS DURATION, UPRIGHT V1, 40+ ms S IN I/aVL/V4/V5/V6] INFERIOR MYOCARDIAL INFARCTION , PROBABLY OLD [40+ ms Q WAVE AND/OR ST/T ABNORMALITY IN II/aVF] ANTEROLATERAL MYOCARDIAL INFARCTION , PROBABLY OLD [40+ ms Q WAVE IN I/aVL/V3-V6] Compared to ECG 06/30/2024 14:20:25 Right-axis deviation now present Atrial fibrillation no longer present Left-axis deviation no longer present Myocardial infarct finding still present /store/S0/[id number]/[id number].pdf
--- NOTE | 2024-07-06 08:30 | PC.NURSE ---
CHRISTI FROM HOME FOR SOB THAT BEGAN AROUND 0700 THIS MORNING. PT HAS LABORED BREATHING, CHECKED RECTAL TEMP THAT WAS 102.1F. EVERYTIME WE TOUCHED PT HE WOULD YELL OUT IN PAIN. DID ARRIVE VERY SOILED TO WHERE GEL FROM BRIEF WAS STICKING TO PTS GENITALS AND BUTTOCKS, PERICARE WAS PROVIDED PT CHANGED INTO NEW BRIEF. PT ALSO ARRIVED W/SKIN TEAR TO RIGHT ARM. CALL LIGHT IN REACH
[2024-07-06 08:39] LABS: Basophils % (Auto) 0 % (0-2.5); Eosinophils % (Auto) 0 % (0-10); Immature Granulocytes % (Auto) 1 % (0-0); Lymphocytes # (Auto) 1.2 Thou/mm3 (1.0-4.8); Lymphocytes % (Auto) 8 % (10-50); Mean Corpuscular HGB Conc 33.6 g/dl (31.0-37.0); Mean Corpuscular Hemoglobin 30.9 pg (25.0-35.0); Mean Corpuscular Volume 92 fL (80-100); Monocytes # (Auto) 1.5 Thou/mm3 (0.0-0.8); Monocytes % (Auto) 10 % (0-12); Neutrophils # (Auto) 11.8 Thou/mm3 (1.8-7.7); Neutrophils % (Auto) 80 % (37-80); Nucleated Red Blood Cell % 0 /100 WBC (0); Platelet Count 212 Thou/mm3 (140-440); RDW Standard Deviation 53.7 fL (35.1-43.9); Red Blood Count 2.72 Miln/mm3 (4.50-5.90); White Blood Count 14.8 Thou/mm3 (3.8-10.6)
[2024-07-06] MEDS: Magnesium Sulfate 1 gm Ivpb 1 GM/100 ML BAG IV (08:40)
[2024-07-06 08:42] LABS: Hemoglobin 8.4 g/dL (13.5-16.0)
--- NOTE | 2024-07-06 08:47 | PD.EDSOB ---
ED SOB =RME/HPI General Chief Complaint: Shortness of Breath/Dyspnea Stated Complaint: SOB Time Seen by Provider: 07/06/24 07:46 Arrival date/time: 07/06/24 07:38 Limitations: no limitations RME / HPI RME / HPI Narrative: 89 year old male with history of CHF, COPD, and diabetes was presented to the ER BIBA with a chief complaint of SOB. Per EMS, patient had onset SOB last night on 07/05/24. Per EMS, tachypneic at 33 breaths per minute with a SpO2 of 84% on room air at arrival on scene. EMS provided supplemental oxygen until SpO2 was in the lower 90%. Per EMS, Albuterol treatment x2 was started and patient was tachypneic at 22 breaths per minute. Patient stated no other complaints. Related Data Home Medications ?Medication ?Instructions ?Recorded ?Confirmed Docosahexanoic Acid/Epa (Fish Oil 1,400 mg PO DAILY ##0 05/14/13 05/13/24 1,000 Mg Softgel) levothyroxine 175 mcg tablet 225 mcg PO QDAY #0 tabs 05/14/13 05/13/24 (Synthroid) fluticasone furoate 50 50 mcg inhalation BID PRN 01/04/24 05/12/24 mcg/actuation blister powder for shortness of breath inhalation metformin 1,000 mg tablet 1,500 mg PO QDAY 01/04/24 05/13/24 Held on 05/14/24. Instructions: Resume on 05/21/24. Hold until follow up with PCP tamsulosin 0.4 mg capsule 0.4 mg PO DAILY 01/04/24 05/13/24 acetaminophen 325 mg tablet 650 mg PO Q4H PRN Pain 01/08/24 05/12/24 (Tylenol) Lactobacillus acidophilus 10 mg PO HS 05/12/24 05/12/24 (Acidophilus capsule) apixaban 2.5 mg tablet (Eliquis) 2.5 mg PO BID 05/12/24 05/12/24 atorvastatin 10 mg tablet 10 mg PO HS 05/12/24 05/12/24 carvedilol 6.25 mg tablet 6.25 mg PO BID 05/12/24 05/12/24 famotidine 20 mg tablet 20 mg PO DAILY 05/12/24 05/12/24 levothyroxine 200 mcg tablet 200 mcg PO .am 05/13/24 05/13/24 metformin 500 mg tablet 500 mg PO DAILY 05/13/24 05/13/24 Held on 05/14/24. Instructions: Resume on 05/21/24. Hold until follow up with PCP omega 5-nzf-pov-fish oil 1,000 mg 1 cap PO QDAY 05/13/24 05/13/24 (120 mg-180 mg) capsule (Fish Oil) ondansetron HCl 4 mg tablet 4 mg PO Q8H PRN nausea and vomiting 05/13/24 05/13/24 valsartan 40 mg tablet 40 mg PO DAILY 05/13/24 05/13/24 Held on 05/14/24. Instructions: Resume on 05/28/24. Hold until follow up with PCP and repeat renal panel Previous Rx's ?Medication ?Instructions ?Recorded albuterol 90 mcg-budesonide 80 2 inh inhalation BID PRN shortness 01/09/24 mcg/actuation HFA aerosol inhaler of breath #10.7 grams Allergies Allergy/AdvReac Type Severity Reaction Status Date / Time bacitracin (From Neosporin Allergy Mild Redness of Verified 07/06/24 08:07 ([id number])) Skin neomycin (From Neosporin Allergy Mild Redness of Verified 07/06/24 08:07 ([id number])) Skin polymyxin B (From Neosporin Allergy Mild Redness of Verified 07/06/24 08:07 ([id number])) Skin Review of Systems Review of Systems Systems Reviewed: All systems reviewed, normal except as documented Past Medical History Past Medical History CARDIAC: Positive Cardiac Disorders, Atrial Fibrillation, Hypercholesterolemia, Congestive Heart Failure and Hypertension GENITOURINARY: Positive Renal Disease and Benign Prostatic Hyperplasia MUSCULOSKELETAL: Positive Fractures ENT: Positive Cataracts ENDOCRINE: Positive Diabetes Mellitus Type 2 and Hypothyroidism HEMATOLOGIC: Positive Anemia OTHER HISTORY: Positive Hospitalization, Falls, Blood Transfusions and Cancer Surgical History SURGICAL: Positive Joint Replacement Social History SMOKING STATUS: Never smoker SECOND HAND EXPOSURE: No ED Exam General Limitations: Present no limitations General appearance: Present alert and other (2 words per sentence) Head Head exam: Present atraumatic Eye Eye exam: Present normal appearance, PERRL and EOMI ENT ENT exam: Present normal exam, normal oropharynx and mucous membranes moist Neck Neck exam: Present normal inspection, full ROM and trachea midline Chest Chest inspection: Present normal inspection and symmetric chest wall rise Respiratory Respiratory exam: Present wheezes (diffuse), prolonged expiratory phase and other (prolonged expiratory phase, diffuse wheezing, speaking in 2-3 word sentences ) Cardiovascular Cardiovascular exam: Present regular rate, normal rhythm and normal heart sounds Abdominal Exam Abdominal exam: Present soft and normal bowel sounds Extremities Exam Extremities exam: Present normal inspection, full ROM and other (no pedal edema ) Back Exam Back exam: Present normal inspection and full ROM Neurological Exam Neurological exam: Present alert, oriented X3 and CN II-XII intact Psychiatric Psychiatric exam: Present normal affect and normal mood Skin Skin exam: Present warm, dry, intact and normal color Course Quality Measures none Orders Category Date Time Status Bedside COVID-19 Antigen Test NOW Care 07/06/24 13:23 Active Supervisor Color Making STAT Care 07/06/24 07:46 Active Continuous Pulse Oximetry ONCE Care 07/06/24 07:46 Completed EKG (ED ONLY) *Do not use* NOW Care 07/06/24 07:46 Completed Insert IV STAT Care 07/06/24 07:46 Active Discharge Routine Discharge 07/06/24 15:25 Active EKG (ED Only) Stat Exams 07/06/24 07:46 Draft XR chest 1V portable Stat Exams 07/06/24 07:46 Completed B-Type Natriuretic Peptide Stat Lab 07/06/24 08:27 Completed CBC Stat Lab 07/06/24 08:27 Completed Comprehensive Metabolic Panel Stat Lab 07/06/24 08:27 Completed D-Dimer Stat Lab 07/06/24 08:27 Completed Magnesium Stat Lab 07/06/24 08:27 Completed Prothrombin Time with INR Stat Lab 07/06/24 08:27 Completed Troponin I Stat Lab 07/06/24 08:27 Completed Urinalysis, C/S if Indicated Stat Lab 07/06/24 14:15 Completed Urine Culture Stat Lab 07/06/24 14:15 Received Acetaminophen Tab [Tylenol ES Tab] Med 07/06/24 10:24 Discontinued 1,000 mg PO X1 ONE Magnesium Sulfate 1 gm Ivpb [Magnesium Sulfate Ivpb] Med 07/06/24 07:48 Discontinued 1 gm in 100 ml IV X1 MethylPREDNISolone. [SoluMEDROL Inj] Med 07/06/24 07:46 Discontinued 40 mg IVP X1 ONE Oxygen Delivery NOW RT 07/06/24 07:46 Active Reevaluation(s) Reevaluation #1: 1215: Speaking full sentences on reassessment . Vital Signs Vital signs: Vital Signs Temperature 99.4 F 07/06/24 07:48 Pulse Rate 97 07/06/24 07:48 Respiratory Rate 20 07/06/24 07:48 Blood Pressure 154/73 H 07/06/24 07:48 Pulse Oximetry (%) 100 07/06/24 07:48 Oxygen Delivery Method Aerosol Mask 07/06/24 07:48 Shortness of Breath / Dyspnea MDM Narrative MDM Narrative:: Carrie Moy am scribing for and in the presence of Dr. Oleary. Patient data External records reviewed:: [facility] previous records Clinical information provided by:: patient and EMS Social determinants that could affect healthcare access:: none Patient has the following chronic illnesses:: CHF, COPD, and diabetes How is presenting disease/condition affected by chronic disease/condition?: exacerbated by Evaluation data The following diagnostics were reviewed and interpreted by me:: lab results, radiology exam(s) and EKG tracing(s) (EKG#1: EKG at 0818 hours. Interpreted by me: sinus rhythm, rate 89, non-specific ischemic changes ) Lab and/or radiology exams considered but not ordered:: none Interpretation Summary: Ordering Physician: Raphael Oleary MD Date of Service: 07/06/24 Procedure(s): XR chest 1V portable Accession Number(s): [id number] cc: Subhash Limon MD; Raphael Oleary MD; Vladimir Rust MD~ Examination: AP chest single view TECHNIQUE: AP portable semiupright chest single view Examination diagnostic on July 06, 2024 0849 hours Comparison June 30, 2024 INDICATIONS: Fever weakness beginning 2 days ago. FINDINGS: Subsegmental atelectasis left base Minor prominence left ventricle Mild vascular congestion. No lobar pneumonia IMPRESSION: Mild vascular congestion No lobar pneumonia Dictated By: Vladimir Rust MD Signed By: <Electronically signed by Vladimir Rust MD in OV> 07/06/24 0911 Medications / Prescriptions Medications or Prescriptions considered but not ordered:: none Medication administrations:: Medication Administration History Discontinued Medications Acetaminophen (Acetaminophen 500 Mg Tablet) 1,000 mg PO X1 ONE Stop: 07/06/24 10:25 Last Admin: 07/06/24 10:55 Dose: 1,000 mg Documented By: TM Magnesium Sulfate/Dextrose (Magnesium Sulfate Ivpb) 1 gm in 100 mls @ 100 mls/hr IV X1 ONE Stop: 07/06/24 08:47 Last Infusion: 07/06/24 09:40 Dose: Infused Documented By: Admin: 07/06/24 08:40 Dose: 100 mls/hr Documented By: TM Methylprednisolone Sodium Succinate (Methylprednisolone Sod Succ 40 Mg Vial) 40 mg IVP X1 ONE Stop: 07/06/24 07:47 Last Admin: 07/06/24 08:43 Dose: 40 mg Documented By: TM see above. Consultations Consultation(s) initiated? (list below): Yes Consultation #1 (Physician, Specialty, Details): Dr. Lopes was made aware of the patient?s HPI, PMHx, lab and/or radiology results. Treatment plan was discussed. Will admit for further evaluation and management. Admission was not needed. Patient did not meet criteria for admission. Time: 12:36 Diagnosis Shortness of Breath Differential Diagnosis: acute exacerbation of chronic obstructive airways disease, congestive heart failure and community acquired pneumonia Most likely diagnosis given after review of the tests above:: acute bronchospasm, CKD, hypoxia Admission Indicated Admission indicated?: not indicated Admission Request Was there a request for admission?: No Disposition Plan Disposition Plan: Discharge Discharge Attestation Discharge Attestation: The patient and all family members were given an opportunity to ask questions and understood the discharge instructions. Discharge instructions specifically effects, indications for sooner follow up or return to the emergency department, and the expected course of current diagnosis. Patient condition: Stable Discharge Plan Plan Patient Disposition: HOME (Self Care) Patient condition on transfer: Stable Prescriptions/Referrals Prescriptions/Med Rec: No Action levothyroxine [Synthroid] 175 MCG tablet 225 mcg PO QDAY Qty: 0 Docosahexanoic Acid/Epa (Fish Oil 1,000 Mg Softgel) 1 CAP capsule 1,400 mg PO DAILY Qty: 0 Eliquis 2.5 mg tablet 2.5 mg PO BID Patient Comments: TAKE 1 TABLET BY MOUTH TWICE A DAY atorvastatin 10 mg tablet 10 mg PO HS Patient Comments: TAKE 1 TABLET BY MOUTH EVERY DAY carvedilol 6.25 mg tablet 6.25 mg PO BID Patient Comments: TAKE 1 TABLET BY MOUTH TWICE A DAY Acidophilus Capsule 10 mg PO HS famotidine 20 mg tablet 20 mg PO DAILY Patient Comments: TAKE 1 TABLET BY MOUTH EVERY DAY omega 0-yix-szp-fish oil [Fish Oil] 1,000 (120-180) mg capsule 1 cap PO QDAY levothyroxine 200 mcg tablet 200 mcg PO .am Patient Comments: TAKE 1 TABLET BY MOUTH EVERY DAY metformin 500 mg tablet 500 mg PO DAILY Patient Comments: TAKE 1 TABLET BY MOUTH EVERY DAY valsartan 40 mg tablet 40 mg PO DAILY Patient Comments: TAKE 1 TABLET BY MOUTH EVERY DAY ondansetron HCl 4 mg tablet 4 mg PO Q8H PRN (Reason: nausea and vomiting) tamsulosin 0.4 mg Capsule 0.4 mg PO DAILY metformin 1,000 mg Tablet 1,500 mg PO QDAY fluticasone furoate 50 mcg/actuation Blister With Device 50 mcg INHALATION BID PRN (Reason: shortness of breath) acetaminophen [Tylenol] 325 mg Tablet 650 mg PO Q4H PRN (Reason: Pain) albuterol-budesonide 90-80 mcg/actuation HFA aerosol inhaler 2 inh inhalation BID PRN (Reason: shortness of breath) Qty: 10.7 0RF Referrals: Subhash Limon MD [Primary Care Provider] - In 1 week Problem List Clinical Impression: Acute bronchospasm, CKD (chronic kidney disease), Hypoxia Patient/Caregiver Discharge Instructions Education Materials: ED Bronchospasm (Adult) Print Language: [place]an Stand Alone Forms: [facility] Award Info., Patient Portal Info Letter
[2024-07-06 08:52] LABS: INR 1.1 (0.9-1.3); Prothrombin Time 11.8 Seconds (9.0-12.2)
[2024-07-06 08:53] LABS: D-Dimer 821 ng/mL (<600)
[2024-07-06 09:00] LABS: B-Type Natriuretic Peptide 557 pg/mL (0-100)
[2024-07-06 09:02] LABS: Alanine Aminotransferase 23 U/L (10-49); Albumin, Serum 3.7 gm/dL (3.4-4.8); Albumin/Globulin Ratio 1.2 (1.2-2.2); Alkaline Phosphatase 115 U/L (46-116); Anion Gap 12 (7-16); Aspartate Amino Transferase 11 U/L (0-34); BUN/Creatinine Ratio 18 Ratio (12-20); Bilirubin,Total 0.8 mg/dL (0.3-1.2); Blood Urea Nitrogen 49 mg/dL (9-23); Calcium 8.4 mg/dL (8.3-10.6); Calcium (Corrected) 8.6 mg/dL (8.5-10.1); Carbon Dioxide 19.7 mMol/L (20.0-31.0); Chloride 103 mMol/L (98-107); Creatinine (Component) 2.8 mg/dL (0.6-1.3); Estimated Creatinine Clearance 20.4 mL/min (>60); Glucose 121 mg/dL (74-106); Magnesium 1.6 mg/dL (1.6-2.6); Osmolality,Calculated 284 (275-295); Potassium 5.3 mMol/L (3.4-5.1); Sodium 135 mMol/L (136-145); Total Protein 6.7 gm/dL (5.7-8.2); Troponin I 0.021 ng/mL (0.0-0.045); eGFR 21 See Note
[2024-07-06] MEDS: ACETAMINOPHEN 500 MG TABLET 1000 MG PO (10:55)
--- NOTE | 2024-07-06 13:19 | ESCONSULT_ITS ---
<Statement entered by Juan Ramon Lopes MD - 07/11/24 14:46> I reviewed above note and agree with findings and plans. I have also personally examined the patient with medicine team and went over assessment and plan with medical team including internetworking technician and resident physician. HPI Data of Consult Consult date: 07/06/24 Requesting Physician: Dr Webb Admitting Provider: Len Montes MD Attending Provider: Juan Ramon Lopes MD Primary Care Provider: Subhash Limon MD Consult Narrative Reason for consult: Constipation, Hyperklaemia History of present illness: RE: Tarik Thrasher DATE OF CONSULTATION: Location of this patient is Room 9 in ED REASON FOR CONSULTATION: Constipation, Hyperklaemia, ? COPD exacerb HISTORY OF PRESENT ILLNESS: Mr Martin is a 89 year old male with PMH of COPD, CHF, GERD, Type II DM, BPH, Hypothyroidism and primary hypertension. Hospitalist team received call from ED for admission at 12:20 PM for COPD exacerbation, patient presented with O2 sats of around 90% with significant shortness of breath. As per ED evaluation, lab work remarkable for leukocytosis 14.8, CKD creatinine 2.8 GFR 21 and hyperkalemia K5.3. He was recently treated for UTI initially E. coli and then Pseudomonas in June 2024. Last urine sample from July 02 shows resolution of UTI with no bacteria noted on UA. On evaluation in the ED, patient was noted to be on 2 L oxygen by nasal cannula, conversing well AO x 3. Daughter present at bedside, according to home there was not much shortness of breath but patient has fluctuations in mentation similar to what he has with his recurrent UTI. Patient also has not had a bowel movement in 3-4 days. He primarily lives at home with caregivers, and the daughter visits frequently. He has minimal bowel or bladder control, endorses incontinence. Abdomen is noted to be distended, stool palpable diffusely. Patient himself denies any shortness of breath, cough, subjective fevers or distal swelling. Of note, patient was saturating 99% on room air, and is unlikely to be in COPD exacerbation at this time. cc:: cc: Review of Systems Review of Systems Narrative Review of Systems: GENERAL: Denies fevers/chills, diaphoresis. HEENT: Denies headache or visual/hearing changes. Denies nasal discharge. NEURO: Denies unusual weakness or difficulty speaking. CARDIO: Denies chest pain, palpitations. PULM: Denies SOB, cough, wheezing. GI: Diffuse abdominal pain, no N/V, constipation x4days. URO: Denies burning/itching/pain/urinary changes. MSK/EXT/SKIN: Denies skeletal/muscle pain, changes in upper or lower extremities, itchiness, superficial skin chnages. PSYCH: Cooperative, pleasant mood & affect. The rest of the review of systems is otherwise negative. Exam Vital Signs Temp Pulse Resp BP Pulse Ox O2 Del Method O2 Flow Rate 99.3 F 64 18 130/62 100 Nasal Cannula 4 07/06/24 12:23 07/06/24 12:23 07/06/24 12:23 07/06/24 12:23 07/06/24 12:23 07/06/24 12:07/06/24 12:23 Narrative Exam Constitutional Alert, oriented x3 and comfortable. On room air HEENT Vision grossly intact. Patent nares. Trachea midline. Respiratory Chest normal on inspection and clear to auscultation bilaterally. Cardiovascular S1 and S2 audible, RRR. No murmurs or carotid bruit. No gross JVD. Abdominal Distended, non tender to palpation, hard stool palpable in the left upper and lower quadrant. BS + Genitourinary No bladder tenderness, no flank pain. Normal to palpation. Urine incontinence. Musculoskeletal Extremities tone within normal limits. No LE edema. Neurological CN II - XII grossly intact. Extremity motor and sensation grossly intact. Skin Warm, dry and intact. No apparent lesions. Psychiatric Patient has a good affect, is cooperative. Results Labs 07/06/24 08:27 07/06/24 08:27 Labs: Short CBC 07/06/24 Range/Units 08:27 WBC 14.8 H (3.8-10.6) Thou/mm3 Hgb 8.4 L (13.5-16.0) g/dL Hct 25.0 L (41.0-53.0) % Plt Count 212 (140-440) Thou/mm3 BMP 07/06/24 08:27 Sodium 135 L Potassium 5.3 H Chloride 103 Carbon Dioxide 19.7 L BUN 49 H Creatinine 2.8 H Glucose 121 H Calcium 8.4 Cardiac Enzymes 07/06/24 Range/Units 08:27 Troponin I 0.021 (0.0-0.045) ng/mL Liver Function 07/06/24 Range/Units 08:27 Total Bilirubin 0.8 (0.3-1.2) mg/dL AST 11 (0-34) U/L ALT 23 (10-49) U/L Alkaline Phosphatase 115 (46-116) U/L Albumin 3.7 (3.4-4.8) gm/dL Quality Measures Quality Measures none Advance care planning discussed with:: patient and child Medications Home Medications and Allergies Home Medications ?Medication ?Instructions ?Recorded ?Confirmed ?Type Docosahexanoic Acid/Epa (Fish Oil 1,400 mg PO DAILY ## 0 05/14/13 05/13/24 History 1,000 Mg Softgel) levothyroxine 175 mcg tablet 225 mcg PO QDAY #0 tabs 0 05/14/13 05/13/24 History (Synthroid) fluticasone furoate 50 50 mcg inhalation BID PRN 05/12/24 History mcg/actuation blister powder for shortness of breath inhalation metformin 1,000 mg tablet 1,500 mg PO QDAY 01/04/24 History Held on 05/14/24. Instructions: Resume on 05/21/24. Hold until follow up with PCP tamsulosin 0.4 mg capsule 0.4 mg PO DAILY 01/04/2412/28 History acetaminophen 325 mg tablet 650 mg PO Q4H PRN Pain 06/2705/12/24 History (Tylenol) Lactobacillus acidophilus 10 mg PO HS 05/12/24 5 History (Acidophilus capsule) apixaban 2.5 mg tablet (Eliquis) 2.5 mg PO BID 5 05/12/24 History atorvastatin 10 mg tablet 10 mg PO HS 05/12/24 5 History carvedilol 6.25 mg tablet 6.25 mg PO BID 05/12/2411/28 History famotidine 20 mg tablet 20 mg PO DAILY 05/12/2411/28 History levothyroxine 200 mcg tablet 200 mcg PO .am 05/13/24 0 05/13/24 History metformin 500 mg tablet 500 mg PO DAILY 05/13/2412/28 History Held on 05/14/24. Instructions: Resume on 05/21/24. Hold until follow up with PCP omega 6-eqw-fcv-fish oil 1,000 mg 1 cap PO QDAY 05/13/24 History (120 mg-180 mg) capsule (Fish Oil) ondansetron HCl 4 mg tablet 4 mg PO Q8H PRN nausea and vomiting 05/13/24 05/13/24 History valsartan 40 mg tablet 40 mg PO DAILY 05/13/2405/04 History Held on 05/14/24. Instructions: Resume on 05/28/24. Hold until follow up with PCP and repeat renal panel Allergies Allergy/AdvReac Type Severity Reaction Status Date / Time bacitracin (From Neosporin Allergy Mild Redness of Verified 07/06/24 08:07 ([id number])) Skin neomycin (From Neosporin Allergy Mild Redness of Verified 07/06/24 08:07 ([id number])) Skin polymyxin B (From Neosporin Allergy Mild Redness of Verified 07/06/24 08:07 ([id number])) Skin Visit Medications Discontinued Medications Acetaminophen (Acetaminophen 500 Mg Tablet) 1,000 mg PO X1 ONE Stop: 07/06/24 10:25 Last Admin: 07/06/24 10:55 Dose: 1,000 mg Magnesium Sulfate/Dextrose (Magnesium Sulfate Ivpb) 1 gm in 100 mls @ 100 mls/hr IV X1 ONE Stop: 07/06/24 08:47 Last Infusion: 07/06/24 09:40 Dose: Infused Methylprednisolone Sodium Succinate (Methylprednisolone Sod Succ 40 Mg Vial) 40 mg IVP X1 ONE Stop: 07/06/24 07:47 Last Admin: 07/06/24 08:43 Dose: 40 mg Assessment & Plan Plan RECOMMENDATION: ? Patient will benefit from lactulose in the ED for constipation. Advised discharging with Dulcolax for mild, MiraLAX for moderate and lactulose syrup for >3days of constipation at home. ? Patient needs IV insulin 10 units x 1 for hyperkalemia, with repeat CMP to confirm resolution ? Leukocytosis is likely due to constipation, anticipate resolution with bowel movements. ? Patient should get a UA prior to discharge from the ED to rule out UTI given history of recurrent infections. If positive recommend discharging with adequate antibiotic course for the same. ? Patient does not appear to be in any acute COPD or CHF exacerbation at this time. MAP 65 score very low, does not meet criteria for inpatient admission. ? Management discussed in detail with patient's daughter present at bedside, is in agreement. Recommend continued follow-up with PCP with close monitoring. Return to ED symptoms worsen. We are grateful to be able to participate in Mr Martin's care. We wish him the best. Management plan discussed with my attending Dr. Gaby Lopes, - Len Montes MD
[2024-07-06 14:59] LABS: Collection Type, Urine Clean Catch
[2024-07-06 15:11] LABS: Bilirubin,Urine Negative (Negative); Blood,Urine Negative (Negative); Clarity,Urine Clear (Clear/Hazy); Color,Urine Lt-Yellow (Lt Yel-Yel); Glucose, Urine Negative (Negative); Ketones,Urine Negative (Negative); Leukocyte Esterase,Urine Positive (Negative); Nitrite,Urine Positive (Negative); Protein,Urine Trace (Neg - Trace); RBC,Urine 1 /hpf (0-3); Specific Gravity,Urine 1.009 (1.001-1.035); Squamous Epithelial Cell,Urine < 1 /hpf (0-5); Urobilinogen,Urine Negative mg/dL (0.0-1.0); WBC,Urine 26 /hpf (0-5)
[2024-07-06 15:17] LABS: Culture Indicated,Urine Yes
--- NOTE | 2024-07-06 17:56 | PC.NURSE ---
PT REFUSED ENEMA AND MED, STATES HE HAS REGULAR BMS, AND WOULD LIKE TO TAKE HIS MIRILAX AT HOME IF HE HAS ANY CONSTIPATION, BUT FEELS LIKE HE IS NOT AT THIS TIME. WHEN GETTING PT CHANGED TO GO HOME PT HAS SMALL SOFT BM IN BRIEF.
== END 2024-07-06 18:03 | disposition home or self-care (01) ==
PROVIDERS: Emergency Provider Emergency Medicine; PCP Internal Medicine
DX: I13.0 Hypertensive heart and chronic kidney disease with heart failure and stage 1 through stage 4 chronic kidney disease, or unspecified chronic kidney disease (principal); E11.22 Type 2 diabetes mellitus with diabetic chronic kidney disease; N18.9 Chronic kidney disease, unspecified; I50.9 Heart failure, unspecified; J98.01 Acute bronchospasm; R09.02 Hypoxemia; I45.10 Unspecified right bundle-branch block; J44.9 Chronic obstructive pulmonary disease, unspecified; E78.00 Pure hypercholesterolemia, unspecified; I48.91 Unspecified atrial fibrillation; Z79.84 Long term (current) use of oral hypoglycemic drugs; Z79.01 Long term (current) use of anticoagulants
CPT/HCPCS: 36415; 71045; 80053; 81001; 83735; 83880; 84484; 85025; 85379; 85610; 87077; 87086; 87186; 87811; 93005; 96365; 99284; J2919; J3475; A9270

== ENCOUNTER → 2024-07-25 | Outpatient (BNVA) | payer MEDICARE, BC, SELFPAY | END | disposition home or self-care (01) | PROVIDERS: PCP Internal Medicine; Referring Provider Internal Medicine; Visit Provider Urology | DX: N40.1 Benign prostatic hyperplasia with lower urinary tract symptoms (principal); N13.8 Other obstructive and reflux uropathy; N31.9 Neuromuscular dysfunction of bladder, unspecified; I13.2 Hypertensive heart and chronic kidney disease with heart failure and with stage 5 chronic kidney disease, or end stage renal disease; E11.22 Type 2 diabetes mellitus with diabetic chronic kidney disease; N18.5 Chronic kidney disease, stage 5; I50.30 Unspecified diastolic (congestive) heart failure; E03.9 Hypothyroidism, unspecified; I48.91 Unspecified atrial fibrillation; C43.9 Malignant melanoma of skin, unspecified; Z87.440 Personal history of urinary (tract) infections | CPT/HCPCS: 99203; G0463 ==

== ENCOUNTER → 2024-09-09 | Outpatient (CLI) | payer MEDICARE, BC, SELFPAY ==
[2024-09-09 12:20] LABS: Basophils # (Auto) 0.0 Thou/mm3 (0.0-0.2); Basophils % (Auto) 0 % (0-2.5); Eosinophils # (Auto) 0.3 Thou/mm3 (0.0-0.5); Eosinophils % (Auto) 3 % (0-10); Hematocrit 21.9 % (41.0-53.0); Immature Granulocytes Auto 0.02 Thou/mm3 (0.00-0.00); Lymphocytes # (Auto) 1.5 Thou/mm3 (1.0-4.8); Lymphocytes % (Auto) 17 % (10-50); Mean Corpuscular HGB Conc 34.2 g/dl (31.0-37.0); Mean Corpuscular Hemoglobin 31.9 pg (25.0-35.0); Mean Corpuscular Volume 93 fL (80-100); Monocytes # (Auto) 0.8 Thou/mm3 (0.0-0.8); Monocytes % (Auto) 9 % (0-12); Neutrophils # (Auto) 6.2 Thou/mm3 (1.8-7.7); Neutrophils % (Auto) 70 % (37-80); Nucleated Red Blood Cell # 0.00 Thou/mm3 (0.00-0.00); Nucleated Red Blood Cell % 0 /100 WBC (0); Platelet Count 225 Thou/mm3 (140-440); RDW Standard Deviation 46.3 fL (35.1-43.9); Red Blood Count 2.35 Miln/mm3 (4.50-5.90); White Blood Count 8.9 Thou/mm3 (3.8-10.6)
[2024-09-09 12:31] LABS: Hemoglobin 7.5 g/dL (13.5-16.0)
[2024-09-09 12:32] LABS: Parathyroid Hormone Intact 39.7 pg/ml (18.5-88.0)
[2024-09-09 12:36] LABS: Albumin, Serum 3.8 gm/dL (3.4-4.8); Anion Gap 10 (7-16); BUN/Creatinine Ratio 14 Ratio (12-20); Blood Urea Nitrogen 50 mg/dL (9-23); Calcium 9.0 mg/dL (8.3-10.6); Calcium (Corrected) 9.2 mg/dL (8.5-10.1); Carbon Dioxide 19.9 mMol/L (20.0-31.0); Chloride 105 mMol/L (98-107); Creatinine (Component) 3.6 mg/dL (0.6-1.3); Glucose 111 mg/dL (74-106); Osmolality,Calculated 284 (275-295); Phosphorous 5.1 mg/dL (2.4-5.1); Potassium 5.3 mMol/L (3.4-5.1); Sodium 135 mMol/L (136-145); Thyroid Stimulating Hormone 0.32 uIU/mL (0.55-4.78); eGFR 16 See Note
[2024-09-09 12:37] LABS: Vitamin D 25 Hydroxy Total 63.1 ng/mL (7.3-40.2)
[2024-09-09 15:30] LABS: Collection Type, Urine Clean Catch; RBC,Urine 0 /hpf (0-3); Squamous Epithelial Cell,Urine 0 /hpf (0-5)
[2024-09-09 16:14] LABS: Bacteria,Urine 2+; Bilirubin,Urine Negative (Negative); Blood,Urine 1+ (Negative); Glucose, Urine Negative (Negative); Ketones,Urine Negative (Negative); Leukocyte Esterase,Urine Positive (Negative); Nitrite,Urine Negative (Negative); PH,Urine 6.0 (5.0-7.0); Protein,Urine 2+ (Neg - Trace); Specific Gravity,Urine 1.006 (1.001-1.035); Urobilinogen,Urine Negative mg/dL (0.0-1.0); WBC,Urine 1194 /hpf (0-5)
[2024-09-09 16:47] LABS: Clarity,Urine Cloudy (Clear/Hazy); Color,Urine Lt Brown (Lt Yel-Yel); Creatinine MALB Rnd Ur 32 mg/dL (30-125); Culture Indicated,Urine Yes; Microalbumin Creat Ratio 122 mg/gCrea (<30); Microalbumin, Random Urine 39 mg/L (0-300)
== END | disposition home or self-care (01) ==
LOC: COPL 11:23
PROVIDERS: PCP Internal Medicine; Referring Provider Internal Medicine; Visit Provider Internal Medicine
DX: I12.9 Hypertensive chronic kidney disease with stage 1 through stage 4 chronic kidney disease, or unspecified chronic kidney disease (principal); N18.4 Chronic kidney disease, stage 4 (severe); E78.5 Hyperlipidemia, unspecified; E55.9 Vitamin D deficiency, unspecified
CPT/HCPCS: 36415; 80069; 81001; 82043; 82306; 82570; 83970; 84443; 85025; 87077; 87086; 87186

== ENCOUNTER → 2024-11-13 | Outpatient (CLI) | payer MEDICARE, BC, SELFPAY ==
[2024-11-13 16:51] LABS: Basophils # (Auto) 0.0 Thou/mm3 (0.0-0.2); Basophils % (Auto) 0 % (0-2.5); Eosinophils # (Auto) 0.7 Thou/mm3 (0.0-0.5); Eosinophils % (Auto) 8 % (0-10); Hematocrit 30.6 % (41.0-53.0); Hemoglobin 10.3 g/dL (13.5-16.0); Immature Granulocytes Auto 0.02 Thou/mm3 (0.00-0.00); Lymphocytes # (Auto) 2.3 Thou/mm3 (1.0-4.8); Lymphocytes % (Auto) 27 % (10-50); Mean Corpuscular HGB Conc 33.7 g/dl (31.0-37.0); Mean Corpuscular Hemoglobin 32.0 pg (25.0-35.0); Mean Corpuscular Volume 95 fL (80-100); Monocytes # (Auto) 0.9 Thou/mm3 (0.0-0.8); Monocytes % (Auto) 10 % (0-12); Neutrophils # (Auto) 4.8 Thou/mm3 (1.8-7.7); Neutrophils % (Auto) 55 % (37-80); Nucleated Red Blood Cell # 0.00 Thou/mm3 (0.00-0.00); Nucleated Red Blood Cell % 0 /100 WBC (0); Platelet Count 263 Thou/mm3 (140-440); RDW Standard Deviation 45.7 fL (35.1-43.9); Red Blood Count 3.22 Miln/mm3 (4.50-5.90); White Blood Count 8.7 Thou/mm3 (3.8-10.6)
[2024-11-13 17:07] LABS: Albumin, Serum 3.9 gm/dL (3.4-4.8); Anion Gap 11 (7-16); BUN/Creatinine Ratio 12 Ratio (12-20); Blood Urea Nitrogen 46 mg/dL (9-23); Calcium 9.1 mg/dL (8.3-10.6); Calcium (Corrected) 9.2 mg/dL (8.5-10.1); Carbon Dioxide 23.6 mMol/L (20.0-31.0); Chloride 101 mMol/L (98-107); Creatinine (Component) 3.7 mg/dL (0.6-1.3); Glucose 168 mg/dL (74-106); Osmolality,Calculated 287 (275-295); Phosphorous 4.9 mg/dL (2.4-5.1); Potassium 4.4 mMol/L (3.4-5.1); Sodium 136 mMol/L (136-145); eGFR 15 See Note
== END | disposition home or self-care (01) ==
LOC: COPL 15:27
PROVIDERS: PCP Internal Medicine; Referring Provider Internal Medicine; Visit Provider Internal Medicine
DX: I12.9 Hypertensive chronic kidney disease with stage 1 through stage 4 chronic kidney disease, or unspecified chronic kidney disease (principal); N18.4 Chronic kidney disease, stage 4 (severe)
CPT/HCPCS: 36415; 80069; 85025

== ENCOUNTER → 2024-12-18 | Outpatient (CLI) | payer MEDICARE, BC, SELFPAY ==
[2024-12-18 11:03] LABS: Basophils # (Auto) 0.0 Thou/mm3 (0.0-0.2); Basophils % (Auto) 1 % (0-2.5); Eosinophils # (Auto) 0.6 Thou/mm3 (0.0-0.5); Eosinophils % (Auto) 7 % (0-10); Hematocrit 29.8 % (41.0-53.0); Hemoglobin 10.4 g/dL (13.5-16.0); Immature Granulocytes Auto 0.02 Thou/mm3 (0.00-0.00); Lymphocytes # (Auto) 1.8 Thou/mm3 (1.0-4.8); Lymphocytes % (Auto) 22 % (10-50); Mean Corpuscular HGB Conc 34.9 g/dl (31.0-37.0); Mean Corpuscular Hemoglobin 31.8 pg (25.0-35.0); Mean Corpuscular Volume 91 fL (80-100); Monocytes # (Auto) 0.8 Thou/mm3 (0.0-0.8); Monocytes % (Auto) 11 % (0-12); Neutrophils # (Auto) 4.7 Thou/mm3 (1.8-7.7); Neutrophils % (Auto) 59 % (37-80); Nucleated Red Blood Cell # 0.00 Thou/mm3 (0.00-0.00); Nucleated Red Blood Cell % 0 /100 WBC (0); Platelet Count 238 Thou/mm3 (140-440); RDW Standard Deviation 43.2 fL (35.1-43.9); Red Blood Count 3.27 Miln/mm3 (4.50-5.90); White Blood Count 8.0 Thou/mm3 (3.8-10.6)
[2024-12-18 11:25] LABS: Parathyroid Hormone Intact 53.2 pg/ml (18.5-88.0)
[2024-12-18 11:27] LABS: Albumin, Serum 4.2 gm/dL (3.4-4.8); Anion Gap 13 (7-16); BUN/Creatinine Ratio 15 Ratio (12-20); Blood Urea Nitrogen 58 mg/dL (9-23); Calcium 9.5 mg/dL (8.3-10.6); Calcium (Corrected) 9.5 mg/dL (8.5-10.1); Carbon Dioxide 20.4 mMol/L (20.0-31.0); Chloride 103 mMol/L (98-107); Creatinine (Component) 3.9 mg/dL (0.6-1.3); Glucose 131 mg/dL (74-106); Osmolality,Calculated 290 (275-295); Phosphorous 6.4 mg/dL (2.4-5.1); Potassium 5.3 mMol/L (3.4-5.1); Sodium 136 mMol/L (136-145); eGFR 14 See Note
[2024-12-18 11:29] LABS: Vitamin D 25 Hydroxy Total 53.0 ng/mL (7.3-40.2)
[2024-12-18 13:31] LABS: Collection Type, Urine Clean Catch; Squamous Epithelial Cell,Urine 0 /hpf (0-5)
[2024-12-18 14:11] LABS: Bilirubin,Urine Negative (Negative); Blood,Urine 2+ (Negative); Color,Urine Yellow (Lt Yel-Yel); Glucose, Urine Negative (Negative); Ketones,Urine Negative (Negative); Leukocyte Esterase,Urine Positive (Negative); Nitrite,Urine Negative (Negative); PH,Urine 6.5 (5.0-7.0); Protein,Urine 1+ (Neg - Trace); RBC,Urine 56 /hpf (0-3); Specific Gravity,Urine 1.010 (1.001-1.035); Urobilinogen,Urine Negative mg/dL (0.0-1.0); WBC,Urine 1420 /hpf (0-5)
[2024-12-18 14:12] LABS: Creatinine MALB Rnd Ur 28 mg/dL (30-125); Microalbumin Creat Ratio 236 mg/gCrea (<30); Microalbumin, Random Urine 66 mg/L (0-300)
[2024-12-18 14:13] LABS: Clarity,Urine Cloudy (Clear/Hazy)
== END | disposition home or self-care (01) ==
LOC: COPL 10:17
PROVIDERS: PCP Internal Medicine; Referring Provider Internal Medicine; Visit Provider Internal Medicine
DX: I12.9 Hypertensive chronic kidney disease with stage 1 through stage 4 chronic kidney disease, or unspecified chronic kidney disease (principal); N18.4 Chronic kidney disease, stage 4 (severe); E55.9 Vitamin D deficiency, unspecified
CPT/HCPCS: 36415; 80069; 81001; 82043; 82306; 82570; 83970; 85025

== ENCOUNTER → 2025-02-10 | Outpatient (CLI) | payer MEDICARE, BC, SELFPAY ==
[2025-02-10 15:11] LABS: Basophils # (Auto) 0.1 Thou/mm3 (0.0-0.2); Basophils % (Auto) 1 % (0-2.5); Eosinophils # (Auto) 0.6 Thou/mm3 (0.0-0.5); Eosinophils % (Auto) 6 % (0-10); Hematocrit 26.4 % (41.0-53.0); Immature Granulocytes Auto 0.02 Thou/mm3 (0.00-0.00); Lymphocytes # (Auto) 2.3 Thou/mm3 (1.0-4.8); Lymphocytes % (Auto) 23 % (10-50); Mean Corpuscular HGB Conc 32.6 g/dl (31.0-37.0); Mean Corpuscular Hemoglobin 31.2 pg (25.0-35.0); Mean Corpuscular Volume 96 fL (80-100); Monocytes # (Auto) 1.2 Thou/mm3 (0.0-0.8); Monocytes % (Auto) 12 % (0-12); Neutrophils # (Auto) 5.8 Thou/mm3 (1.8-7.7); Neutrophils % (Auto) 58 % (37-80); Nucleated Red Blood Cell # 0.00 Thou/mm3 (0.00-0.00); Nucleated Red Blood Cell % 0 /100 WBC (0); Platelet Count 280 Thou/mm3 (140-440); RDW Standard Deviation 47.4 fL (35.1-43.9); Red Blood Count 2.76 Miln/mm3 (4.50-5.90); White Blood Count 10.0 Thou/mm3 (3.8-10.6)
[2025-02-10 15:18] LABS: Hemoglobin 8.6 g/dL (13.5-16.0)
[2025-02-10 15:23] LABS: Albumin, Serum 4.2 gm/dL (3.4-4.8); Anion Gap 13 (7-16); BUN/Creatinine Ratio 10 Ratio (12-20); Blood Urea Nitrogen 46 mg/dL (9-23); Calcium 8.9 mg/dL (8.3-10.6); Calcium (Corrected) 8.9 mg/dL (8.5-10.1); Carbon Dioxide 20.6 mMol/L (20.0-31.0); Chloride 103 mMol/L (98-107); Creatinine (Component) 4.8 mg/dL (0.6-1.3); Glucose 106 mg/dL (74-106); Osmolality,Calculated 285 (275-295); Phosphorous 4.9 mg/dL (2.4-5.1); Potassium 5.2 mMol/L (3.4-5.1); Sodium 137 mMol/L (136-145); eGFR 11 See Note
== END | disposition home or self-care (01) ==
LOC: COPL 14:02
PROVIDERS: PCP Internal Medicine; Referring Provider Internal Medicine; Visit Provider Internal Medicine
DX: I12.0 Hypertensive chronic kidney disease with stage 5 chronic kidney disease or end stage renal disease (principal); N18.5 Chronic kidney disease, stage 5
CPT/HCPCS: 36415; 80069; 85025